=== PATIENT | male | born 1980 | race Caucasian/White ===

== ENCOUNTER 2018-09-27 19:15 | Emergency (ER) | payer SELFPAY ==
[2018-09-27 20:19] LABS: Urine Blood NEGATIVE (NEG); Urine Glucose NEGATIVE (NEG); Urine Protein NEGATIVE (NEG)
[2018-09-27 20:21] LABS: Absolute Lymphocytes (CBC) 3.2 K/uL (0.7-4.9); Absolute Monocytes 0.8 K/uL (0.1-1.3); Absolute Neutrophil 5.2 K/uL (1.8-8.0); Basophils % 0.7 % (0-1.3); Eosinophils % 2.4 % (0-4.4); Hematocrit 47.4 % (39.6-49.0); Lymphocytes % 33.6 % (15.3-44.8); MPV 8.2 fL (7.6-11.3); Monocytes % 8.8 % (3.3-12.3); RBC Red Blood Cell Count 5.47 M/uL (4.33-5.43)
[2018-09-27 20:26] LABS: Urine Bacteria NONE SEEN /HPF (NONE SEEN); Urine Culture Reflex Order NOT NEEDED; Urine Mucus 2+ /HPF (NONE SEEN); Urine RBC <5 /HPF (NONE SEEN)
--- NOTE | 2018-09-27 20:27 | RAD REPORT ---
EXAM DESCRIPTION: Shari Quintanilla (2 Views)09/27/2018 8:12 pm CLINICAL HISTORY: Chest pain COMPARISON: None FINDINGS: The lungs appear clear of acute infiltrate. The heart is normal size IMPRESSION: No acute abnormalities displayed
[2018-09-27 20:34] LABS: BUN Blood Urea Nitrogen 13 mg/dL (7-18); Bicarbonate 25 mmol/L (21-32); Glucose Level 84 mg/dL (74-106); Sodium Level 140 mmol/L (136-145)
[2018-09-27] MEDS ORDERED: KETOROLAC 30 MG/ML INJ ONE (22:12)
--- NOTE | 2018-09-27 22:24 | ER ---
Nurse's Notes [facility] Name: Milton Reeves Age: 37 yrs Sex: Male : 1980 Arrival Date: 09/27/2018 Time: 19:18 Bed 24 Private MD: Diagnosis: Low back pain Presentation: 09/27 19:25 Presenting complaint: Patient states: he has been having back pain for several weeks bb first it was on both sides but right side went away and now it is on the left side has pain with respirations pain is constant and currently 10/10. Transition of care: patient was not received from another setting of care. Onset of symptoms is unknown. Risk Assessment: Do you want to hurt yourself or someone else? Patient reports no desire to harm self or others. Initial Sepsis Screen: Does the patient meet any 2 criteria? No. Patient's initial sepsis screen is negative. Does the patient have a suspected source of infection? No. Patient's initial sepsis screen is negative. Care prior to arrival: None. 19:25 Method Of Arrival: Ambulatory bb 19:25 Acuity: HENRY 3 bb Historical: - Allergies: 19:26 No Known Allergies; bb - Home Meds: 19:26 None [Active]; bb - PMHx: 19:26 None; bb - PSHx: 19:26 None; bb - Immunization history:: Adult Immunizations up to date. - Social history:: Smoking status: Patient uses tobacco products, smokes one pack cigarettes per day. Patient/guardian denies using alcohol, street drugs. - Ebola Screening: : No symptoms or risks identified at this time. Screenin:11 Abuse screen: Denies threats or abuse. Nutritional screening: No deficits noted. la1 Tuberculosis screening: No symptoms or risk factors identified. Fall Risk None identified. Assessment: 20:10 General: Appears in no apparent distress. Behavior is calm, cooperative. Pain: la1 Complains of pain in left subscapular area. Neuro: Level of Consciousness is awake, alert, obeys commands, Oriented to person, place, time, situation. Cardiovascular: Capillary refill < 3 seconds Patient's skin is warm and dry. Respiratory: Airway is patent Respiratory effort is even, unlabored, Respiratory pattern is regular, symmetrical, Breath sounds are clear bilaterally. GI: No signs and/or symptoms were reported involving the gastrointestinal system. : No signs and/or symptoms were reported regarding the genitourinary system. 20:55 Reassessment: Patient appears in no apparent distress at this time. No changes from la1 previously documented assessment. Patient and/or family updated on plan of care and expected duration. Pain level reassessed. Patient is alert, oriented x 3, equal unlabored respirations, skin warm/dry/pink. 21:43 Reassessment: Patient appears in no apparent distress at this time. No changes from la1 previously documented assessment. Patient and/or family updated on plan of care and expected duration. Pain level reassessed. Patient is alert, oriented x 3, equal unlabored respirations, skin warm/dry/pink. 22:18 Reassessment: Patient appears in no apparent distress at this time. No changes from la1 previously documented assessment. Patient and/or family updated on plan of care and expected duration. Pain level reassessed. Patient is alert, oriented x 3, equal unlabored respirations, skin warm/dry/pink. Vital Signs: 19:26 BP 152 / 113; Pulse 81; Resp 16 S; Temp 98.1(O); Pulse Ox 97% on R/A; Weight 97.98 kg bb (R); Height 5 ft. 11 in. (180.34 cm) (R); Pain 10/10; 21:16 BP 139 / 97; la1 19:26 Body Mass Index 30.13 (97.98 kg, 180.34 cm) ED Course: 19:18 Patient arrived in ED. es 19:26 Triage completed. bb 19:26 Arm band placed on Patient placed in an exam room, on a stretcher, on pulse oximetry. bb Family accompanied patient. 19:29 Florin Glaser, RN is Primary Nurse. la1 19:29 Eddy Shaffer MD is Attending Physician. gs 20:10 XRAY Chest Pa And Lat (2 Views) In Process Unspecified. EDMS 20:11 No provider procedures requiring assistance completed. Inserted saline lock: 22 gauge la1 in right forearm, using aseptic technique. Blood collected. 20:12 Bed in low position. Call light in reach. la1 22:18 IV discontinued, intact, bleeding controlled, No redness/swelling at site. Pressure la1 dressing applied. Administered Medications: 22:03 Drug: TORadol - Ketorolac 15 mg Route: IVP; Site: right wrist; la1 22:27 Follow up: Response: No adverse reaction; Pain is decreased la1 Outcome: 22:18 Discharged to home ambulatory. la1 22:18 Condition: stable 22:18 Discharge instructions given to patient, Instructed on discharge instructions, follow up and referral plans. medication usage, Demonstrated understanding of instructions, follow-up care, medications, Prescriptions given X 1. 22:24 Discharge ordered by . 22:27 Patient left the ED. la1 Signatures: Dispatcher [employer] Janeth Perez Brenda, RN RN Florin Berkowitz RN RN la1 Eddy Shaffer MD MD
--- NOTE | 2018-09-27 22:24 | EDPHYS ---
Physician Documentation [facility] Name: Milton Reeves Age: 37 yrs Sex: Male : 1980 Arrival Date: 09/27/2018 Time: 19:18 Bed 24 Private MD: ED Physician Eddy Shaffer HPI: 09/27 22:18 This 37 yrs old Male presents to ER via Ambulatory with complaints of Flank gs Pain, Back Pain. 22:18 The patient complains of pain in the left low back and left mid back. The pain does not gs radiate. Onset: The symptoms/episode began/occurred 3 week(s) ago, and became persistent. Modifying factors: The symptoms are alleviated by nothing. the symptoms are aggravated by. Modifying factors: the symptoms are aggravated by movement. Associated signs and symptoms: Pertinent negatives: fever, urinary frequency, pain radiating to the lower extremities. Severity of pain: At its worst the pain was moderate in the emergency department the pain is unchanged. Historical: - Allergies: 19:26 No Known Allergies; bb - Home Meds: 19:26 None [Active]; bb - PMHx: 19:26 None; bb - PSHx: 19:26 None; bb - Immunization history:: Adult Immunizations up to date. - Social history:: Smoking status: Patient uses tobacco products, smokes one pack cigarettes per day. Patient/guardian denies using alcohol, street drugs. - Ebola Screening: : No symptoms or risks identified at this time. ROS: 22:18 All other systems are negative. gs Exam: 22:18 Head/Face: Normocephalic, atraumatic. Eyes: Pupils equal round and reactive to light, gs extra-ocular motions intact. Lids and lashes normal. Conjunctiva and sclera are non-icteric and not injected. Cornea within normal limits. Periorbital areas with no swelling, redness, or edema. ENT: Nares patent. No nasal discharge, no septal abnormalities noted. Tympanic membranes are normal and external auditory canals are clear. Oropharynx with no redness, swelling, or masses, exudates, or evidence of obstruction, uvula midline. Mucous membranes moist. Neck: Trachea midline, no thyromegaly or masses palpated, and no cervical lymphadenopathy. Supple, full range of motion without nuchal rigidity, or vertebral point tenderness. No Meningismus. Chest/axilla: Normal chest wall appearance and motion. Nontender with no deformity. No lesions are appreciated. Cardiovascular: Regular rate and rhythm with a normal S1 and S2. No gallops, murmurs, or rubs. Normal PMI, no JVD. No pulse deficits. Respiratory: Lungs have equal breath sounds bilaterally, clear to auscultation and percussion. No rales, rhonchi or wheezes noted. No increased work of breathing, no retractions or nasal flaring. Abdomen/GI: Soft, non-tender, with normal bowel sounds. No distension or tympany. No guarding or rebound. No evidence of tenderness throughout. Skin: Warm, dry with normal turgor. Normal color with no rashes, no lesions, and no evidence of cellulitis. MS/ Extremity: Pulses equal, no cyanosis. Neurovascular intact. Full, normal range of motion. Neuro: Awake and alert, GCS 15, oriented to person, place, time, and situation. Cranial nerves II-XII grossly intact. Motor strength 5/5 in all extremities. Sensory grossly intact. Cerebellar exam normal. Normal gait. 22:18 Constitutional: The patient appears alert, awake. 22:18 Back: CVA tenderness, that is moderate, is noted on the left. Vital Signs: 19:26 BP 152 / 113; Pulse 81; Resp 16 S; Temp 98.1(O); Pulse Ox 97% on R/A; Weight 97.98 kg bb (R); Height 5 ft. 11 in. (180.34 cm) (R); Pain 10/10; 21:16 BP 139 / 97; la1 19:26 Body Mass Index 30.13 (97.98 kg, 180.34 cm) bb MDM: 19:50 Patient medically screened. gs 22:18 Differential diagnosis: nephrolithiasis, pyelonephritis, back strain . pneumonia. Data reviewed: vital signs, nurses notes, lab test result(s), radiologic studies. Counseling: I had a detailed discussion with the patient and/or guardian regarding: the historical points, exam findings, and any diagnostic results supporting the discharge/admit diagnosis, radiology results, the need for outpatient follow up. Response to treatment: the patient's symptoms have mildly improved after treatment. 09/27 19:52 Order name: Urine Microscopic Only; Complete Time: 20:30 09/27 19:52 Order name: CBC with Diff; Complete Time: 20:30 09/27 19:52 Order name: Basic Metabolic Panel; Complete Time: 21:59 09/27 20:12 Order name: Urine Dipstick--Ancillary (enter results); Complete Time: 20:30 mw2 09/27 20:31 Order name: D-Dimer 09/27 20:31 Order name: D-Dimer; Complete Time: 21:59 EDTN 09/27 19:52 Order name: Urine Dipstick-Ancillary (obtain specimen); Complete Time: 20:10 09/27 19:52 Order name: XRAY Chest Pa And Lat (2 Views); Complete Time: 20:30 Administered Medications: 22:03 Drug: TORadol - Ketorolac 15 mg Route: IVP; Site: right wrist; la1 22:27 Follow up: Response: No adverse reaction; Pain is decreased la1 Disposition: 09/27/18 22:24 Discharged to Home. Impression: Low back pain. - Condition is Stable. - Discharge Instructions: Back Pain, Adult. - Prescriptions for Naprosyn 500 mg Oral Tablet - take 1 tablet by ORAL route 2 times per day As needed take with food; 30 tablet. - Medication Reconciliation Form, Thank You Letter, Antibiotic Education, Prescription Opioid Use form. - Follow up: Private Physician; When: 2 - 3 days; Reason: Re-evaluation by your physician. Signatures: Dis[facility] Jillian Hamilton RN RN Florin Glaser RN RN la1 Eddy Shaffer MD MD Corrections: (The following items were deleted from the chart) 22:21 21:59 Stone Protocol+CT.RAD.BRZ ordered. [facility] 22:27 22:24 09/27/2018 22:24 Discharged to Home. Impression: Low back pain. Condition is la1 Stable. Forms are Medication Reconciliation Form, Thank You Letter, Antibiotic Education, Prescription Opioid Use. Follow up: Private Physician; When: 2 - 3 days; Reason: Re-evaluation by your physician. gs
== END 2018-09-27 22:27 | disposition home or self-care (01) ==
LOC: ER 19:15
DX: M54.5 Low back pain (principal); F17.210 Nicotine dependence, cigarettes, uncomplicated
CPT/HCPCS: 36415; 71046; 80048; 81003; 81015; 85025; 85379; 96374; 99284

== ENCOUNTER 2021-08-06 10:12 | Emergency (ER) | payer OTHER, SELFPAY ==
--- OUTSIDE RECORDS SUMMARY | 2021-08-06 10:18 | XMS REPORT | Continuity of Care Document ---
:1980 Author Organization [facility] t Address [address] [place] [address] Care Team Providers Name Role Phone PCP, DOES NOT HAVE A Primary Care Physician Unavailable Jethro MARINELLI, Khalida Currie Attending Clinician Unavailable Stevan Dc NP Attending Clinician Stevan DC Attending Clinician Unavailable MARTA AMAYA Attending Clinician Unavailable Luciano Calle MD Attending Clinician Luciano CALLE Attending Clinician Unavailable Jimmie Guerrero MD Attending Clinician Jameel GARCÍA Attending Clinician Deena GARCÍA Attending Clinician Brissa Lerma Attending Clinician Doctor Unassigned, Name Attending Clinician Unavailable Chapincito Bloom MD Attending Clinician Chapincito BLOOM Attending Clinician Unavailable Chapincito BLOOM Attending Clinician Unavailable DIEGO Attending Clinician Unavailable Diego GARCÍA Attending Clinician Deena GARCÍA Admitting Clinician DIEGO Admitting Clinician Unavailable Payers Payer Name Policy Type Policy Number Effective Date Ex[facility] Date [id number] 2020 00:00:00 [employer] O [id number] 2016 00:00:00 Problems Condition Condition Condition Status Onset Resolution Last Treating Co mments Source Name Details Category Date Date Treatment Clinician Date Obesity Obesity Disease Active [facility] (BMI (BMI 9-10 [facility] - 30-39.9) 30-39.9) 00:00: Medica l 00 Center Encounter Encounter Disease Active [facility] for for 9-10 [facility] - screening screening 00:00: Medi milka for other for other 00 Cent er viral viral diseases diseases Acute Acute Disease Active [facility] hepatitis hepatitis 9-10 [facility] - 00:00: Medical 00 [place] Fatty Fatty Disease Active [facility] liver liver 9-10 [facility] - 00:00: Medical 00 [place] Abnormal Abnormal Disease [facility] liver liver 9-08 [facility] - enzymes enzymes 00:00: Medical 00 [place] Abnormal Abnormal Disease [facility] liver 02-14 [facility] - diagnostic diagnostic 00:00: Wi dical imaging imaging 00 Center Acute Acute Disease Active Univers respirator respirator 8-12 it y of y failure y failure 00:00: Luis s due to due to 00 Medical COVID-19 COVID-19 Branch No known No known Disease Unive rs active active ity of problems problems [facility] Allergies, Adverse Reactions, Alerts Allergy Allergy Status Severity Reaction(s) Onset Inactive Treating Comm ents Source Name Type Date Date Clinician NO KNOWN Allergy Active [facility] NO KNOWN Drug Active [facility] [place] [facility] ALLERGIE Class ity of S [facility] Family History Family Member Diagnosis Comments Start Date Stop Date Source Natural father Heart disease [facility] Natural mother Anxiety disorder [facility] Natural mother COPD [facility] Natural mother Depression [facility] Natural mother Hypertension [facility] Social History Social Habit Start Date Stop Date Quantity Comments Source Exposure to Yes University of SARS-CoV-2 [place] [facility] (event) Branch History SDOH [facility] - Alcohol Std Medical Cente r Drinks History SDOH [facility] - Alcohol Binge Medical Jhonny ter History SDOH [facility] - Alcohol Comment Medical C enter Alcohol intake 2021-03-13 2021-03-[address] [address] [facility] es - 00:00:00 00:00:00 non-drinker Medical Cente r (finding) Tobacco use and 2021-02-14 2021-02-[address] [facility] Viole[facility] kes - exposure 00:00:00 00:00:00 Medical Center History SDOH 2021-02-14 2021-02-14 1 SETH Tse - Alcohol Frequency 00:00:00 00:00:00 [facility] Sex Assigned At [birth year] SETH Reyes - 00:00:00 00:00:00 [facility] Smoking Status Start Date Stop Date Source Never smoker SETH Tse - [facility] Unknown if ever smoked [facility] Medications Ordered Filled Start Stop Current Ordering Indication Dosage Frequency Signature Comments Components Source Medication Medication Date Date Medication? Clinician (SIG) Name Name multivitami 2020-06 Yes Take by [facility] n/iron/foli 0-05 mouth. [facility] - c acid 12:13: Medical ([address] COMPLETE ORAL) multivitami 2020-06 Yes Take by [facility] n/iron/foli 0-05 mouth. [facility] - c acid 12:13: Medical ([address] COMPLETE ORAL) buPROPion 2020-06 Yes 150mg QD Take [address] [facility] (WELLBUTRIN 0-03 mg by [facility] - XL) 150 MG 00:00: mouth Medica l 24 hr 00 every Center tablet morning. buPROPion 2020-06 Yes 150mg QD Take [address] [facility] (WELLBUTRIN 0-03 mg by [facility] - XL) 150 MG 00:00: mouth Medica l 24 hr 00 every Center tablet morning. NaCl 0.9% Yes 2000mL at 999 Univ ers (NS) IV 8-13 mL/hr, ity of infusion 01:00: Intravenou Yasir as 2,000 mL 00 s, Medical CONTINUOUS Branch , Starting [place] 01/18/21 at 2000, Until Discontinu ed, DAE enoxaparin Yes 40mg 40 mg, Unive rs (LOVENOX) 01-18 Subcutaneo ity of injection 22:00: [place], [place] 40 mg 00 First dose Medical on [place] Branch 01/18/21 at 1700, Until Discontinu ed, Routine traMADoL 2020- No 50mg 50 mg, Univer s (ULTRAM) 01-18 08-14 Oral, ity of tablet 50 20:48: 20:47 Q4HPRN, [place] mg 58 :58 Starting Medical [place] Branch 01/18/21 at 1548, Until 01/20/21 at 1547, Routine, Pain (scale 4-6), Pain (scale 7-10) KCL 2020- No 40meq 40 mEq, Univers (KLOR-CON 01-18 Oral, ity of M20) tablet 18:30: 19:18 ONCE, 1 [place] 40 mEq 00 :00 dose, [facility] Medical 01/18/21 at Branch 1330, Routine dexamethaso 2020- No 6mg 6 mg, IV U nivers ne 01-18 Push, ity of (DECADRON 14:45: 13:46 ONCE, 1 [place] PHOSPHATE) 00 :00 dose, [facility] Medi milka injection 6 01/18/21 at Br anch mg 0945, STAT iopamidol 2020- No [id number] 120mL 120 mL, Univers (ISOVUE 01-18 Intravenou ity o f 370-500 mL) 14:30: 13:04 s, ONCE, 1 [place] injection 00 :00 dose, [place] Medic al 120 mL 01/18/21 at Branch 0930, Routine remdesivir 2020- No 200mg 200 mg, IV Univers 200 mg in 01-18 Infusion, ity of NaCl 0.9% 13:45: 15:04 ONCE, 1 [place] (NS[place] 100 mL 00 :00 dose, [place] Med ical infusion 01/18/21 at [facility] h 0845, Administer over 60 Minutes, 100 mL
Is the patient mechanical ly ventilated ? NO
Is the patient requiring supplement al oxygen? YES KCL 2020- No 40meq 40 mEq, Univers (KLOR-CON 01-18 Oral, ity of M20) tablet 13:30: 13:46 ONCE, 1 [place] 40 mEq 00 :00 dose, [facility] Medical 01/18/21 at Branch 0830, Routine ketorolac 2020- No 30mg 30 mg, Unive rs (TORADOL) 01-18 Slow IV ity of injection 12:30: 11:43 Push, [place] 30 mg 00 :00 ONCE, 1 Medical dose, [place] Branch 01/18/21 at 0730, Routine
member of parliament approving Restricted medication : JOHN GUERRERO ondansetron No 4mg 4 mg, Slow Univers (ZOFRAN 01-18 IV Push, ity of (PF)) 12:30: 11:43 ONCE, 1 [place] injection 4 00 :00 dose, [place] Med ical mg 01/18/21 at Branch 0730, DAE NaCl 0.9% 2020- No 500mL at 999 Univ ers (NS) IV 01-18 mL/hr, ity of infusion 12:30: 20:49 Intravenou [place] 500 mL 00 :19 s, Medical CONTINUOUS Branch , Starting [place] 01/18/21 at 0730, Until [place] 01/18/21 at 1549, Routine acetaminoph No 1000mg 1,000 mg, Univers en 01-13 Oral, ity of (TYLENOL) 09:15: 08:21 ONCE, 1 [place] tablet 00 :00 dose, Sat Medical 1,000 mg 01/13/21 at Branch 0415, DAE benzonatate No 100mg 100 mg, U nivers (TESSALON 01-13- Oral, ity of PERLES) 09:00: 08:21 ONCE, 1 [place] capsule 100 00 :00 dose, Sat Med ical mg 01/13/21 at Branch 0400, Routine ibuprofen Yes [id number] 600mg Take 1 Univers 600 mg 8-07 tablet by ity of tablet 00:00: mouth [place] 00 every 6 Medical (six) Branch hours as needed for Pain (scale 4-6). benzonatate Yes [id number] 100mg Take 1 Univers 100 mg 8-07 capsule by ity of capsule 00:00: mouth 3 [place] 00 (three) Medical times Branch daily as needed for Cough. ondansetron 0 Yes [id number] 4mg Take 1 Univers (ZOFRAN 8-07 tablet by ity of ODT) 4 mg 00:00: mouth [place] disintegrat 00 every 8 Medic al ing tablet (eight) Branch hours as needed for Nausea and Vomiting (N/V). albuterol Yes [id number] 2{puff} Inhale 2 Univers 90 8-07 Puffs ity of mcg/actuati 00:00: every 4 [place] as on inhaler 00 (four) Medical hours as Branch needed for Wheezing or Shortness of Breath. ibuprofen Yes [id number] 600mg Take 1 Univers 600 mg 8-07 tablet by ity of tablet 00:00: mouth [place] 00 every 6 Medical (six) Branch hours as needed for Pain (scale 4-6). benzonatate Yes [id number] 100mg Take 1 Univers 100 mg 8-07 capsule by ity of capsule 00:00: mouth 3 [place] 00 (three) Medical times Branch daily as needed for Cough. ondansetron Yes [id number] 4mg Take 1 Univers (ZOFRAN 8-07 tablet by ity of ODT) 4 mg 00:00: mouth [place] disintegrat 00 every 8 Medic al ing tablet (eight) Branch hours as needed for Nausea and Vomiting (N/V). albuterol Yes [id number] 2{puff} Inhale 2 Univers 90 8-07 Puffs ity of mcg/actuati 00:00: every 4 [place] on inhaler 00 (four) Medical hours as Branch needed for Wheezing or Shortness of Breath. ketorolac 2019- No 30mg 30 mg, Unive rs (TORADOL) 02-26 Slow IV ity of injection 13:00: 12:14 Push, [place] 30 mg 00 :00 ONCE, 1 Medical dose, [place] 02/27/20 at 0800, Routine
member of parliament approving Restricted medication : JOHN GUERRERO ondansetron 2019- No 4mg 4 mg, Slow Univers (ZOFRAN 02-26 IV Push, ity of (PF)) 12:00: 10:59 ONCE, 1 [place] injection 4 00 :00 dose, [place] Med ical mg 02/27/20 at Branch 0700, DAE FENTanyl PF 2019- No 75ug 75 mcg, Un malcolm (SUBLIMAZE 02-26 Slow IV ity o f (PF)) 12:00: 10:59 Push, [place] injection 00 :00 ONCE, 1 Medical 75 mcg dose, [place] Branch 02/27/20 at 0700, Routine iohexol 2020-0 2020- No 120mL 120 mL, Unive rs (OMNIPAQUE 02-26 Intravenou it y of 350 11:45: 11:28 s, ONCE, 1 [place] BULK-100 00 :00 dose, [place] Medica l mL) 02/27/20 at Branch injection 0645, 120 mL Routine lisinopriL 2020-0 Yes [id number] 10mg Take 1 U nivers 10 mg 9-20 tablet by ity of tablet 00:00: mouth at [place] 00 bedtime. Medical Branch traMADoL 2020-0 Yes [id number] 50mg Take 1 Univers (ULTRAM) 50 9-20 tablet by ity of mg tablet 00:00: mouth [place] 00 every 6 Medical (six) Branch hours as needed for Pain (scale 7-10). Indication s: acute pain ondansetron 2020-0 Yes [id number] 4mg Take 1 Univers (ZOFRAN) 4 9-20 tablet by ity of mg tablet 00:00: mouth [place] 00 every 8 Medical (eight) Branch hours as needed for Nausea and Vomiting (N/V). dicyclomine 2020-0 Yes [id number] 20mg Take 1 Univers 20 mg 9-20 tablet by ity of tablet 00:00: mouth [place] 00 every 6 Medical (six) Branch hours as needed for Abdominal pain. lisinopriL 2020-0 Yes [id number] 10mg Take 1 U nivers 10 mg 9-20 tablet by ity of tablet 00:00: mouth at [place] 00 bedtime. Medical Branch traMADoL 2020-0 Yes [id number] 50mg Take 1 Univers (ULTRAM) 50 9-20 tablet by ity of mg tablet 00:00: mouth [place] 00 every 6 Medical (six) Branch hours as needed for Pain (scale 7-10). Indication s: acute pain ondansetron 2020-0 Yes [id number] 4mg Take 1 Univers (ZOFRAN) 4 9-20 tablet by ity of mg tablet 00:00: mouth [place] 00 every 8 Medical (eight) Branch hours as needed for Nausea and Vomiting (N/V). dicyclomine 2020-0 Yes [id number] 20mg Take 1 Univers 20 mg 9-20 tablet by ity of tablet 00:00: mouth [place] 00 every 6 Medical (six) Branch hours as needed for Abdominal pain. lisinopriL 2020-0 Yes [id number] 10mg Take 1 U nivers 10 mg 9-20 tablet by ity of tablet 00:00: mouth at [place] 00 bedtime. Medical Branch traMADoL 2020-0 Yes [id number] 50mg Take 1 Univers (ULTRAM) 50 9-20 tablet by ity of mg tablet 00:00: mouth [place] 00 every 6 Medical (six) Branch hours as needed for Pain (scale 7-10). Indication s: acute pain ondansetron 2020-0 Yes [id number] 4mg Take 1 Univers (ZOFRAN) 4 9-20 tablet by ity of mg tablet 00:00: mouth [place] 00 every 8 Medical (eight) Branch hours as needed for Nausea and Vomiting (N/V). dicyclomine 2020-0 Yes [id number] 20mg Take 1 Univers 20 mg 9-20 tablet by ity of tablet 00:00: mouth [place] 00 every 6 Medical (six) Branch hours as needed for Abdominal pain. lisinopriL 2020-0 Yes [id number] 10mg Take 1 U nivers 10 mg 9-20 tablet by ity of tablet 00:00: mouth at [place] 00 bedtime. Medical Branch traMADoL 2020-0 Yes [id number] 50mg Take 1 Univers (ULTRAM) 50 9-20 tablet by ity of mg tablet 00:00: mouth [place] 00 every 6 Medical (six) Branch hours as needed for Pain (scale 7-10). Indication s: acute pain ondansetron 2020-0 Yes [id number] 4mg Take 1 Univers (ZOFRAN) 4 9-20 tablet by ity of mg tablet 00:00: mouth [place] 00 every 8 Medical (eight) Branch hours as needed for Nausea and Vomiting (N/V). dicyclomine 2020-0 Yes [id number] 20mg Take 1 Univers 20 mg 9-20 tablet by ity of tablet 00:00: mouth [place] 00 every 6 Medical (six) Branch hours as needed for Abdominal pain. lisinopriL 2020-0 Yes [id number] 10mg Take 1 U nivers 10 mg 9-20 tablet by ity of tablet 00:00: mouth at [place] 00 bedtime. Medical Branch traMADoL 2020-0 Yes [id number] 50mg Take 1 Univers (ULTRAM) 50 9-20 tablet by ity of mg tablet 00:00: mouth [place] 00 every 6 Medical (six) Branch hours as needed for Pain (scale 7-10). Indication s: acute pain ondansetron 2020-0 Yes [id number] 4mg Take 1 Univers (ZOFRAN) 4 9-20 tablet by ity of mg tablet 00:00: mouth [place] 00 every 8 Medical (eight) Branch hours as needed for Nausea and Vomiting (N/V). dicyclomine 2020-0 Yes [id number] 20mg Take 1 Univers 20 mg 9-20 tablet by ity of tablet 00:00: mouth [place] 00 every 6 Medical (six) Branch hours as needed for Abdominal pain. lisinopriL 2020-0 Yes [id number] 10mg Take 1 U nivers 10 mg 9-20 tablet by ity of tablet 00:00: mouth at [place] 00 bedtime. Medical Branch traMADoL 2020-0 Yes [id number] 50mg Take 1 Univers (ULTRAM) 50 9-20 tablet by ity of mg tablet 00:00: mouth [place] 00 every 6 Medical (six) Branch hours as needed for Pain (scale 7-10). Indication s: acute pain ondansetron 2020-0 Yes [id number] 4mg Take 1 Univers (ZOFRAN) 4 9-20 tablet by ity of mg tablet 00:00: mouth [place] 00 every 8 Medical (eight) Branch hours as needed for Nausea and Vomiting (N/V). dicyclomine 2020-0 Yes [id number] 20mg Take 1 Univers 20 mg 9-20 tablet by ity of tablet 00:00: mouth [place] 00 every 6 Medical (six) Branch hours as needed for Abdominal pain. lisinopriL 2020-0 Yes [id number] 10mg Take 1 U nivers 10 mg 9-20 tablet by ity of tablet 00:00: mouth at [place] 00 bedtime. Medical Branch traMADoL 2020-0 Yes [id number] 50mg Take 1 Univers (ULTRAM) 50 9-20 tablet by ity of mg tablet 00:00: mouth [place] 00 every 6 Medical (six) Branch hours as needed for Pain (scale 7-10). Indication s: acute pain ondansetron 2020-0 Yes [id number] 4mg Take 1 Univers (ZOFRAN) 4 9-20 tablet by ity of mg tablet 00:00: mouth [place] 00 every 8 Medical (eight) Branch hours as needed for Nausea and Vomiting (N/V). dicyclomine 2020-0 Yes [id number] 20mg Take 1 Univers 20 mg 9-20 tablet by ity of tablet 00:00: mouth [place] 00 every 6 Medical (six) Branch hours as needed for Abdominal pain. lisinopriL 2019-0 Yes [id number] 10mg Take 1 U nivers 10 mg 9-20 tablet by ity of tablet 00:00: mouth at [place] 00 bedtime. Medical Branch traMADoL 2019-0 Yes [id number] 50mg Take 1 Univers (ULTRAM) 50 9-20 tablet by ity of mg tablet 00:00: mouth [place] 00 every 6 Medical (six) Branch hours as needed for Pain (scale 7-10). Indication s: acute pain ondansetron 2019-0 Yes [id number] 4mg Take 1 Univers (ZOFRAN) 4 9-20 tablet by ity of mg tablet 00:00: mouth [place] 00 every 8 Medical (eight) Branch hours as needed for Nausea and Vomiting (N/V). dicyclomine 2019-0 Yes [id number] 20mg Take 1 Univers 20 mg 9-20 tablet by ity of tablet 00:00: mouth [place] 00 every 6 Medical (six) Branch hours as needed for Abdominal pain. ketorolac 2020- No 30mg 30 mg, Unive rs (TORADOL) 10-04 0429 Slow IV ity of injection 05:00: 04:59 Push, Q6H, [place] 30 mg 00 :00 4 doses, Medical First dose Branch on Fri10/05/19 at 0000, Last dose on Fri10/05/19 at 1800, Routine
member of parliament approving Restricted medication : SUZIE CORTEZ NaCl 0.9% 2020- No 1000mL at 999 Uni vers (NS) bolus 10-04-28 mL/hr, ity of infusion 04:45: 04:30 1,000 mL, Yasir as 1,000 mL 00 :00 IV Medical Infusion, Branch ONCE, 1 dose, 10/04/19 at 2345, STAT ibuprofen 2019-0 Yes [id number] 800mg Take 1 U nivers 800 mg 4-27 tablet by ity of tablet 00:00: mouth [place] 00 every 8 Medical (eight) Branch hours. methocarbam 2019-0 Yes [id number] 500mg Take 1 Univers ol 500 mg 4-27 tablet by ity o f tablet 00:00: mouth (four) Medical times Branch daily. ibuprofen 2020-0 Yes [id number] 800mg Take 1 U nivers 800 mg 4-27 tablet by ity of tablet 00:00: mouth [place] 00 every 8 Medical (eight) Branch hours. methocarbam 2020-0 Yes [id number] 500mg Take 1 Univers ol 500 mg 4-27 tablet by ity o f tablet 00:00: mouth (four) Medical times Branch daily. ibuprofen 2020-0 Yes [id number] 800mg Take 1 U nivers 800 mg 4-27 tablet by ity of tablet 00:00: mouth 00 every 8 Medical (eight) Branch hours. methocarbam 2020-0 Yes [id number] 500mg Take 1 Univers ol 500 mg 4-27 tablet by ity o f tablet 00:00: mouth (four) Medical times Branch daily. ibuprofen 2020-0 Yes [id number] 800mg Take 1 U nivers 800 mg 4-27 tablet by ity of tablet 00:00: mouth 00 every 8 Medical (eight) Branch hours. methocarbam 2020-0 Yes [id number] 500mg Take 1 Univers ol 500 mg 4-27 tablet by ity o f tablet 00:00: mouth (four) Medical times Branch daily. ibuprofen 2020-0 Yes [id number] 800mg Take 1 U nivers 800 mg 4-27 tablet by ity of tablet 00:00: mouth 00 every 8 Medical (eight) Branch hours. methocarbam 2020-0 Yes [id number] 500mg Take 1 Univers ol 500 mg 4-27 tablet by ity o f tablet 00:00: mouth (four) Medical times Branch daily. ibuprofen 2020-0 Yes [id number] 800mg Take 1 U nivers 800 mg 4-27 tablet by ity of tablet 00:00: mouth 00 every 8 Medical (eight) Branch hours. methocarbam 2020-0 Yes [id number] 500mg Take 1 Univers ol 500 mg 4-27 tablet by ity o f tablet 00:00: mouth (four) Medical times Branch daily. methocarbam 2020-0 Yes [id number] 500mg Take 1 Univers ol 500 mg 4-27 tablet by ity o f tablet 00:00: mouth (four) Medical times Branch daily. methocarbam 2020-0 Yes [id number] 500mg Take 1 Univers ol 500 mg 4-27 tablet by ity o f tablet 00:00: mouth 4 00 (four) Medical times Branch daily. ibuprofen 2020-0 Yes [id number] 800mg Take 1 U nivers 800 mg 4-27 tablet by ity of tablet 00:00: mouth 00 every 8 Medical (eight) Branch hours. methocarbam 2020-0 Yes [id number] 500mg Take 1 Univers ol 500 mg 4-27 tablet by ity o f tablet 00:00: mouth 4 00 (four) Medical times Branch daily. ibuprofen 2020-0 2020- No [id number] 800mg Take 1 Univers 800 mg 4-27 08-07 tablet by ity of tablet 00:00: 00:00 mouth [place] 00 :00 every 8 Medical (eight) Branch hours. Vital Signs Vital Name Observation Time Observation Value Comments Source HEIGHT 2021-02-14 12:52:00 180.3 cm WEIGHT 2021-02-14 12:52:00 109.77 kg HEIGHT 2021-02-14 12:52:00 180.3 cm WEIGHT 2021-02-14 12:52:00 109.77 kg Systolic blood 2021-01-19 02:00:00 139 mm[Hg] Univer sity [facility] Diastolic blood 2021-01-19 02:00:00 83 mm[Hg] Unive [facility] Heart rate 2021-01-19 02:00:00 85 /min [facility] Oxygen saturation in 2021-01-19 02:00:00 99 /min [facility] Arterial blood by [facility] Pulse oximetry Branch Respiratory rate 2021-01-19 01:00:00 20 /min [facility] Body temperature 2021-01-18 11:04:00 37.78 Jing [facility] Body height 2021-01-18 11:04:00 180.3 cm [facility] Body weight 2021-01-18 11:04:00 113.399 kg [facility] BMI 2021-01-18 11:04:00 34.87 kg/m2 [facility] Systolic blood 2021-01-13 08:00:00 161 mm[Hg] Univer sity of pressure [place] [facility] Diastolic blood 2021-01-13 08:00:00 98 mm[Hg] Unive rsity of pressure [place] [facility] Heart rate 2021-01-13 08:00:00 80 /min [facility]i ty [facility] [place] [facility] Respiratory rate 2021-01-13 08:00:00 20 /min Univ ersity of [place] [facility] Oxygen saturation in 2021-01-13 08:00:00 99 /min University of Arterial blood by [facility] Pulse oximetry Branch Body temperature 2021-01-13 03:37:00 37.44 Jing Univ ersity of [place] [facility] Body height 2021-01-13 03:37:00 180.3 cm [facility] [place] [facility] Body weight 2021-01-13 03:37:00 113.399 kg [facility] [place] [facility] BMI 2021-01-13 03:37:00 34.87 kg/m2 [facility] [place] [facility] Systolic blood 2021-01-12 03:13:00 167 mm[Hg] Univer sity of pressure [place] [facility] Diastolic blood 2021-01-12 03:13:00 115 mm[Hg] Unive rsity of pressure [place] [facility] Heart rate 2021-01-12 03:13:00 101 /min [facility] [place] [facility] Body temperature 2021-01-12 03:13:00 37.94 Jing Univ ersity of [place] [facility] Respiratory rate 2021-01-12 03:13:00 20 /min Univ ers[facility] [place] [facility] Body height 2021-01-12 03:13:00 180.3 cm [facility] [place] [facility] Body weight 2021-01-12 03:13:00 113.399 kg [facility] [place] [facility] BMI 2021-01-12 03:13:00 34.87 kg/m2 [facility] [place] [facility] Oxygen saturation in 2021-01-12 03:13:00 97 /min University of Arterial blood by [facility] Pulse oximetry Branch Systolic blood 2020-11-22 15:44:00 152 mm[Hg] Univer sity of pressure [place] [facility] Diastolic blood 2020-11-22 15:44:00 94 mm[Hg] Unive rsity of pressure [place] [facility] Heart rate 2020-11-22 15:44:00 78 /min [facility] [place] [facility] Body temperature 2020-11-22 15:44:00 36.5 Jing Univ ers[facility] of [place] [facility] Respiratory rate 2020-11-22 15:44:00 18 /min Univ ers[facility] [place] [facility] Body height 2020-11-22 15:44:00 180.3 cm [facility] [place] [facility] Body weight 2020-11-22 15:44:00 117.935 kg [facility] [place] [facility] BMI 2020-11-22 15:44:00 36.26 kg/m2 [facility] [place] [facility] Oxygen saturation in 2020-11-22 15:44:00 98 /min University of Arterial blood by [employer] [facility] Pulse oximetry Branch Systolic blood 2020-02-27 11:00:00 160 mm[Hg] Univer sity of pressure [place] [facility] Diastolic blood 2020-02-27 11:00:00 106 mm[Hg] Unive rsity of pressure [place] [facility] Heart rate 2020-02-27 11:00:00 75 /min [facility] [place] [facility] Respiratory rate 2020-02-27 11:00:00 20 /min Univ ersity [facility] [place] [facility] Oxygen saturation in 2020-02-27 11:00:00 96 /min University of Arterial blood by [employer] Pulse oximetry Branch Body temperature 2020-02-27 10:32:00 36.22 Jing Univ ers[facility] [place] [facility] Body height 2020-02-27 10:32:00 182.9 cm [facility] [place] [facility] Body weight 2020-02-27 10:32:00 124.739 kg [facility] [place] [facility] BMI 2020-02-27 10:32:00 37.30 kg/m2 [facility] [place] [facility] Systolic blood 2019-10-05 04:00:00 163 mm[Hg] Univer sity of pressure [place] [facility] Diastolic blood 2019-10-05 04:00:00 99 mm[Hg] Unive rsity of pressure [place] [facility] Heart rate 2019-10-05 04:00:00 97 /min [facility] [place] [facility] Oxygen saturation in 2019-10-05 04:00:00 96 /min University of Arterial blood by [employer] Pulse oximetry Branch Body temperature 2019-10-05 03:24:00 36.89 Jing [facility] Respiratory rate 2019-10-05 03:24:00 17 /min [facility] Body height 2019-10-05 03:24:00 180.3 cm [facility] Body weight 2019-10-05 03:24:00 113.399 kg [facility] BMI 2019-10-05 03:24:00 34.87 kg/m2 [facility] Body height 2021-03-13 11:17:00 180.3 cm [facility] Body weight 2021-03-13 11:17:00 108.863 kg [facility] BMI 2021-03-13 11:17:00 33.47 kg/m2 [facility] Systolic blood 2021-02-14 12:52:00 139 mm[Hg] [facility] Diastolic blood 2021-02-14 12:52:00 93 mm[Hg] [facility] Heart rate 2021-02-14 12:52:00 83 /min [facility] Body temperature 2021-02-14 12:52:00 36.67 Jing [facility] Oxygen saturation in 2021-02-14 12:52:00 97 /min [facility] Arterial blood by Medical Ce nter Pulse oximetry Procedures Procedure Date / Time Performing Clinician Source Performed CMV PCR, QUANTITATIVE 2021-02-14 14:55:00 Desmond Calle [facility] BASIC METABOLIC PANEL 2021-02-14 14:55:00 Desmond Calle [facility] () [facility] HEPATIC FUNCTION PANEL 2021-02-14 14:55:00 Desmond Calle [facility] CBC W/PLT COUNT & AUTO 2021-02-14 14:55:00 Desmond Calle [facility] PROTHROMBIN TIME/INR 2021-02-14 14:55:00 Desmond Calle [facility] HEPATITIS B CORE 2021-02-14 14:55:[address] [facility], [facility] HEPATITIS B SURFACE 2021-02-14 14:55:[address] [facility] S t [facility] - ANTIBODY [facility] HEPATITIS A ANTIBODY, 2021-02-14 14:55:00 Desmond Calle [facility] IGG [facility] FERRITIN 2021-02-14 14:55:00 Desmond Calle [facility] EDOUK-3-[id number]\\, 2021-02-14 14:55:00 Desmond Calle [facility] SERUM [facility] CBC W/PLT COUNT & AUTO 2021-02-14 14:55:00 Desmond Calle. CH I [facility] HEPATITIS B SURFACE 2021-01-18 17:54:00 Tariq Jorgensen [facility] ANTIGEN [facility] Branch HCV ANTIBODY 2021-01-18 17:54:00 Jameel [facility] HEPATITIS A VIRUS 2021-01-18 17:54:00 Jameel [facility] [address] ANTIBODY IGM [facility] HEPATITIS B CORE 2021-01-18 17:54:00 Jameel [facility] [address] ANTIBODY IGM [facility] PHOSPHORUS 2021-01-18 17:53:00 Jameel [facility] LACTATE DEHYDROGENASE 2021-01-18 17:53:[address] [facility] sity [facility] CREATINE KINASE 2021-01-18 17:53:00 Jameel [facility] MAGNESIUM 2021-01-18 17:53:00 Jameel [facility] FERRITIN SERUM 2021-01-18 17:53:00 Jameel [facility] CT ABDOMEN PELVIS W 2021-01-18 13:18:30 Suzie Cortez [facility] CONTRAST [facility] CT CHEST PULMONARY 2021-01-18 13:18:30 John Guerrero [facility] ANGIOGRAM Medical Branch COMP. METABOLIC PANEL 2021-01-18 11:42:00 John Guerrero [facility] ([id number]) Medical Branch CBC WITH DIFF 2021-01-18 11:42:00 John Guerrero [facility] D-DIMER 2021-01-18 11:42:00 John Guerrero [facility] CONSENT/REFUSAL FOR 2021-01-18 10:43:14 Doctor Unassigned, No [facility] [place] [facility] Name Medical Branch NOTICE OF PRIVACY 2021-01-13 03:12:35 [facility] CONSENT/REFUSAL FOR 2021-01-13 03:12:13 Doctor Unassigned, No [facility] [place] [facility] Name Medical Branch NOTICE OF PRIVACY 2021-01-12 03:00:22 [facility] CONSENT/REFUSAL FOR 2021-01-12 03:00:00 Doctor Unassigned, No [facility] [place] [facility] TREATMENT [facility] Medical [place] ASSIGNMENT OF BENEFITS 2020-11-22 15:58:53 Doctor Unassigned, No [facility] Branch CT ABDOMEN PELVIS W 2020-02-27 11:32:43 John Guerrero [facility] CONTRAST Medical Branch URINALYSIS 2020-02-27 11:01:00 John Guerrero [facility] LIPASE 2020-02-27 10:39:00 John Guerrero [facility] COMP. METABOLIC PANEL 2020-02-27 10:39:00 John Guerrero [facility] ([id number]) Medical [place] CBC WITH DIFF 2020-02-27 10:39:00 John Guerrero [facility] NOTICE OF PRIVACY 2020-02-27 10:23:10 Doctor Unassigned, No Univ [facility]ity [facility] Medical Branch CONSENT/REFUSAL FOR 2020-02-27 10:20:58 Doctor Unassigned, No [facility] [place] [facility] TREATMENT [facility] Medical Branch XR CHEST 1 VW 2019-10-05 04:10:53 Suzie Cortez [facility] XR KUB 2019-10-05 03:46:03 Suzie Cortez [facility] CREATINE KINASE 2019-10-05 03:36:00 Suzie Cortez [facility] LIPASE 2019-10-05 03:36:00 Suzie Cortez [facility] HEPATIC FUNCTION PANEL 2019-10-05 03:36:00 Suzie Cortez [facility] ([id number]) (ALB,T.PRO,BILI [facility] T,BU/BC,ALT,AST,ALK PHOS) BASIC METABOLIC PANEL 2019-10-05 03:36:00 Suzie Cortez [facility] (NA, K, CL, CO2, Medical Branch GLUCOSE, BUN, CREATININE, CA) CBC WITH DIFFERENTIAL 2019-10-05 03:36:00 Suzie Cortez [facility] PROTHROMBIN TIME / INR 2019-10-05 03:36:00 Suzie Cortez [facility] ACTIVATED PARTIAL 2019-10-05 03:36:00 Diego [facility] THRMPLAS [facility] URINALYSIS 2019-10-05 03:36:00 Diego Suzie [facility] Plan of Care Planned Activity Planned Date Details Comments Source Future Scheduled 2021-06-[address] [facility] - Test 00:00:00 (12+) [code = [facility] DEPRESSION SCREENING (12+)] Future Scheduled 2021-06-[address] [facility] - Test 00:00:00 (12+) [code = [facility] DEPRESSION SCREENING (12+)] Future Scheduled 2021-02-[address] [facility] - Test 00:00:00 (#1) [code = [facility] INFLUENZA VACCINE (#1)] Future Scheduled 2021-02-[address] [facility] - Test 00:00:00 (#1) [code = [facility] INFLUENZA VACCINE (#1)] Future Scheduled [address] [facility] Test 00:00:00 (procedure) [code = [facility] [id number]] Future Scheduled [address] [facility] Test 00:00:00 (procedure) [code = [facility] [id number]] Future Scheduled 2001 DTAP/TDAP/TD VACCINES [facility] Test 00:[facility]:00 (1 - Tdap) [code = Medical C enter DTAP/TDAP/TD VACCINES (1 - Tdap)] Future Scheduled 2001 DTAP/TDAP/TD VACCINES [facility] Test 00:00:00 (1 - Tdap) [code = Medical C enter DTAP/TDAP/TD VACCINES (1 - Tdap)] Future Scheduled 2000 HEPATITIS C [facility]CRE[facility]ING [facility] 00:[facility]00 [code = HEPATITIS C Medical Center SCREENING] Future Scheduled 2000 HEPATITIS C [facility] 00:00[facility]00 [code = HEPATITIS C Medical Center SCREENING] Future Scheduled 1987-10-01 COVID-19 VACCINE (1) [facility] - Test 00:00:00 [code = COVID-[address] VACCINE (1)] Future Scheduled 1987-10-01 COVID-19 VACCINE (1) [facility] - Test 00:00:00 [code = COVID-[address] VACCINE (1)] Encounters Start End Encounter Admission Attending Care Care Encounter Source Date/Time Date/Time Type Type Clinicians Facility Department ID 2021-04-09 Emergency [facility] [id number] Univers 14:58:14 ity [facility] 2021-04-09 Emergency [facility] [id number] [facility] Emergency [facility] [id number] [facility] 13:34:[facility] 2021-04-06 Emergency [facility] [id number] [facility] 18:28[facility]05 [facility] 2021-03-23 2021-03-23 Telephone Jethro [facility] [id number] 00[facility] 00:00:00 Lizbeth Currie [facility] 2021-03-13 2021-03-13 Video - Nael [facility] [id number] 11:15:58 15:05:38 Telemedici Leeanne Gonzalez [facility] 2021-03-13 2021-03-[address] [facility] [id number] SLE 11:15:58 15:05:38 LEEANNE 2021-02-22 2021-02-[address] [facility] [id number] SLE 00:00:00 00:00:00 PRASUN 2021-02-15 2021-02-15 Documentat Jethro, [facility] [id number] 00:[facility] 00:00:00 corry Lopez jimmie Berger Khalida [facility] 2021-02-14 2021-02-14 Office RUTH Calle [facility] [id number] 10:33:30 11:33:30 Visit Desmond SerjioTammy [facility] 2021-02-14 2021-02-[address] [facility] [id number] [facility] 00:00:00 00:00:00 [facility] 2021-01-18 2021-01-18 [facility] Cesar Adeelyuli Gallo [facility] [id number]. [id number] Univers 06:07:00 21:56:00 Encounter Tariq Jorgensen [id number] ity of Junaid Shaffer 4.2.7.2.6 [facility] [id number] [facility] 084 Branch 2021-01-12 2021-01-13 Emergency Mark Foster [place] [id number] Univers 22:40:00 03:32:00 Brissa Vines [id number] i ty of [place] 4.2.7.[address] [place] [address] [id number] [facility] 084 Branch 2021-01-11 2021-01-12 Emergency [facility] [id number] Univers 22:14:00 00:50:00 Mohinder [id number] i ty of [place] 4.2.7.2.[address] [place] [address] [id number] [facility] 084 Branch 2021-01-11 2021-01-11 Orders Doctor ALKA [id number] Univers 00:00:00 00:00:00 Only Unassigned, GIBRAN [id number] ity of Friona [facility] 4.2.7.2.686 [facility] [id number] [facility] 009 Branch 2020-11-22 2020-11-22 Office Cathie [facility] [id number] Univers 10:36:13 11:06:13 Visit Raymundo Vines [id number] ity [place] [facility] [id number] Wi dical formerly [facility] 085 [facility] 2020-11-22 2020-11-22 Outpatient R KEYSHADESHAUN ABREUXIOMARA [facility] [id number] Univers 10:30:00 10:30:00 RAYMUNDO BLOOM 6 16 ity of [facility] 2020-11-22 2020-11-22 Outpatient R DESHAUN BLOOMMIDelaney [facility] [id number] Univers 10:30:00 10:30:00 [facility]UNDO [facility] 2020-11-22 2020-11-22 Orders Doctor ALKA [id number] Univers 00:00:00 00:00:00 Only Unassigned, GIBRAN [id number] ity of [facility] 4.2.7.2.686 Yasir [id number] [place] [address] Branch 2020-02-27 2020-02-27 Emergency [facility] [id number] Univers 05:27:00 07:27:00 John V[place] [id number] [place] [id number] [address] 2019-10-04 2019-10-04 Emergency X [facility] ERT [id number] Univers 22:25:41 23:37:00 SUZIE ity [facility] 2019-10-04 2019-10-04 Emergency [facility] [id number] Univers 22:25:41 23:37:00 Suzie Mohinder [id number] i [place] [id number] [address] Results Test Description Test Time Test Comments Results Result Comments Source HEPATITIS B CORE ANTIBODY, TOTAL 2021-02-15 15:44:00 Test Item Value Reference Range Interpretation Comme nts HEPATITIS B CORE TOTAL ANTIBODY (BEAKER) (test code = Nonreactive Nonreactive 497) Machinist Mechanic ID - FERNANDO FCMV PCR, [id number] 13:55:00 Test Item Value Reference Range Interpretation Comments CMV VIRAL LOAD - Negative or below See_Comment [Auto mated message] NEGATIVE (GAVIN) the linear range The sy stem which (test code = of the assay generated this 2558) (<300 IU/mL) result transmit ngoc reference range : <300 - >3,00 0,000 IU/mL. The refe rence range was not u sed to interpret th is result as normal/abnormal . Cytomegalovirus (CMV) infection can cause significant disease in immunosuppressed patients. However,it is common for CMV to manifest as a limited infection which is of no clinical significance in immunosuppressed patients or in healthy individuals.Viral load measurements are helpful to identify clinical CMV infection and to guide the pre-emptive management of antiviral therapy. For treatment of CMVinfection due to reactivation in transplant recipients, a threshold between 4,000 and 5,000 copies/mL is suggested. For treatment of primary CMV infection, a lower threshold can be used.CMV infection may also be monitored using weekly serial measurements. Serial measurements of CMV DNA viral load canbe evaluated by identifying a 10-fold change, as well as assessing the CMV DNA viral load and the clinical context for each patient.The plasma CMV DNA viral load was detected using quantitative polymerase chain reaction and fluorescent monitoring of a specific hybridized probe. Genetic variation and ot her factors can affect the accuracy of nucleic acid testing. Therefore, the results should be interpreted in light of clinical data. A negative result may not exclude the presence of CMV disease.This test was developed and its performance characteristics determined by the [facility] Path ology Department, Section of Molecular Pathology. It has not been cleared or approved by the U.S. Food and Drug Administration (FDA), since FDA approval is not required for clinical use of the test. Validation was done as required by The Clinical Laboratory Improvement Amendments of 1988.HEPATITIS B SURFACE [id number] 17:28:00 Test Item Value Reference Range Interpretation Comments HEPATITIS B SURFACE ANTIBODY < mIU/mL <8.0 (GAVIN) (test code = 647) Machinist Mechanic ID - CDPHEPATITIS A ANTIBODY, [id number] 17:26:00 Test Item Value Reference Range Interpretation Comments HEPATITIS A IGG ANTIBODY (BEAKER) Nonreactive Nonreactive (test code = 2797) Machinist Mechanic ID - [id number] 16:28:00 Test Item Value Reference Range Interpretation Comments ALPHA-1 ANTITRYPSIN (BEAKER) 141.30 mg/dL 90.00-200.00 (test code = 502) Machinist Mechanic ID - [id number] 16:07:00 Test Item Value Reference Range Interpretation Comments FERRITIN (BEAKER) (test code = 238.52 ng/mL 5.00-275.00 361) Machinist Mechanic ID - PIAYA LBASIC METABOLIC [id number] 15:46:00 Test Item Value Reference Range Interpretation Comments SODIUM (BEAKER) 139 meq/L 136-145 (test code = 381) POTASSIUM (BEAKER) 4.0 meq/L 3.5-5.1 Specimen slightly (test code = 379) hemolyzed CHLORIDE (BEAKER) 108 meq/L 98-107 H (test code = 382) CO2 (BEAKER) (test 24 meq/L 22-29 code = 355) BLOOD UREA NITROGEN 7 mg/dL 7-21 (BEAKER) (test code = 354) CREATININE (BEAKER) 1.11 mg/dL 0.57-1.25 Specimen slightly (test code = 358) hemolyzed GLUCOSE RANDOM 84 mg/dL 70-105 (BEAKER) (test code = 652) CALCIUM (BEAKER) 8.8 mg/dL 8.4-10.2 (test code = 697) EGFR (BEAKER) (test 74 mL/min/1.73 ESTIMA NGOC GFR IS code = 1092) sq m NOT ACCURATE CREATININE CLEARANCE IN PREDICTING GLOMERULAR FILTRATION RATE . ESTIMATED GFR I S NOT APPLICABLE FOR DIALYSIS PATIEN TS. Machinist Mechanic ID - PIAYA LHEPATIC FUNCTION [id number] 15:46:00 Test Item Value Reference Range Interpretation Comments TOTAL PROTEIN (BEAKER) 6.9 gm/dL 6.0-8.3 Speci men slightly (test code = 770) hemolyzed ALBUMIN (BEAKER) (test 3.7 g/dL 3.5-5.0 Speci men slightly code = 1145) hemolyzed BILIRUBIN TOTAL 0.4 mg/dL 0.2-1.2 Specimen sli ghtly (BEAKER) (test code = hemoly zed 377) BILIRUBIN DIRECT 0.1 mg/dL 0.1-0.5 Specimen sl ightly (BEAKER) (test code = hemoly zed 706) ALKALINE PHOSPHATASE 88 U/L 40-150 (BEAKER) (test code = 346) AST (SGOT) (BEAKER) 21 U/L 5-34 Specimen slightly (test code = 353) hemolyzed ALT (SGPT) (BEAKER) 36 U/L 6-55 Specimen slightly (test code = 347) hemolyzed Machinist Mechanic ID - PIAYA LPROTHROMBIN [id number] 15:33:00 Test Item Value Reference Range Interpretation Comments PROTIME (BEAKER) 12.0 seconds 11.9-14.2 (test code = 759) INR (BEAKER) (test 0.90 See_Comment [Automat ed message] code = 370) The system [employer] generated this result transmitted ref erence range: <=5.90. The reference range was not used to int erpret this result as normal/abnormal . RECOMMENDED COUMADIN/WARFARIN INR THERAPY RANGESSTANDARD DOSE: 2.0 - 3.0 Includes: PROPHYLAXIS forvenous thrombosis, systemic embolization; TREATMENT for venous thrombosis and/or pulmonary embolus.HIGH RISK: Target INR is 2.5-3.5 for patients with mechanical heart valves.CBC W/PLT COUNT & AUTO DIFFERENTIAL 2021-02-14 15:28:00 Test Item Value Reference Range Interpretation Comments WHITE BLOOD CELL COUNT (BEAKER) 7.3 K/ L 3.5-10.5 (test code = 775) RED BLOOD CELL COUNT (BEAKER) 4.68 M/ L 4.63-6.08 (test code = 761) HEMOGLOBIN (BEAKER) (test code = 13.8 GM/DL 13.7-17.5 410) HEMATOCRIT (BEAKER) (test code = 40.7 % 40.1-51.0 411) MEAN CORPUSCULAR VOLUME (BEAKER) 87.0 fL 79.0-92.2 (test code = 753) MEAN CORPUSCULAR HEMOGLOBIN 29.5 pg 25.7-32.2 (BEAKER) (test code = 751) MEAN CORPUSCULAR HEMOGLOBIN CONC 33.9 GM/DL 32.3-36.5 (BEAKER) (test code = 752) RED CELL DISTRIBUTION WIDTH 13.0 % 11.6-14.4 (BEAKER) (test code = 412) PLATELET COUNT (BEAKER) (test 229 K/CU MM 150-450 code = 756) MEAN PLATELET VOLUME (BEAKER) 9.6 fL 9.4-12.4 (test code = 754) NUCLEATED RED BLOOD CELLS 0 /100 WBC 0-0 (BEAKER) (test code = 413) NEUTROPHILS RELATIVE PERCENT 50 % (BEAKER) (test code = 429) LYMPHOCYTES RELATIVE PERCENT 35 % (BEAKER) (test code = 430) MONOCYTES RELATIVE PERCENT 9 % (BEAKER) (test code = 431) EOSINOPHILS RELATIVE PERCENT 5 % (BEAKER) (test code = 432) BASOPHILS RELATIVE PERCENT 1 % (BEAKER) (test code = 437) NEUTROPHILS ABSOLUTE COUNT 3.66 K/ L 1.78-5.38 (BEAKER) (test code = 670) LYMPHOCYTES ABSOLUTE COUNT 2.51 K/ L 1.32-3.57 (BEAKER) (test code = 414) MONOCYTES ABSOLUTE COUNT (BEAKER) 0.66 K/ L 0.30-0.82 (test code = 415) EOSINOPHILS ABSOLUTE COUNT 0.35 K/ L 0.04-0.54 (BEAKER) (test code = 416) BASOPHILS ABSOLUTE COUNT (BEAKER) 0.06 K/ L 0.01-0.08 (test code = 417) IMMATURE GRANULOCYTES-RELATIVE 0 % 0-1 PERCENT (BEAKER) (test code = 2801) HCV [id number] 23:07:07 Test Item Value Reference Range Interpretation Comments HCV Ab (test code = 68818-3) Negative HCV Semi-Quantitative (test code = 09127-0) [facility] A VIRUS ANTIBODY [id number] 22:56:04 Test Item Value Reference Range Interpretation Comments HAVM Negative Semi-Quantitative (test code = 54377-2) MARIBEL (test code = HAVAb IgM Interpretative MARIBEL) Information: Reactive greater than or equal to 1.2 Biotin has been reported to cause a negative bias, interpret results relative to patient's use of biotin. [facility] B CORE ANTIBODY [id number] 22:56:04 Test Item Value Reference Range Interpretation Comments HBCM Negative Semi-Quantitative (test code = 88560-9) MARIBEL (test code = Biotin has been reported MARIBEL) to cause a negative bias, interpret results relative to patient's use of biotin. [facility] [id number] 22:50:19 Test Item Value Reference Range Interpretation Comments HBsAg Semi-Quantitative (test code = Negative Negative 5195-3) [facility] [id number] 21:54:34 Test Item Value Reference Range Interpretation Comments FERRITIN (test code = 6850.0 ng/mL 18.0-464.0 H [id number]) MARIBEL (test code = MARIBEL) Biotin has been reported to cause a negative bias, interpret results relative to patient's use of biotin. Lab Interpretation (test Abnormal code = 14909-9) [facility] [id number] 19:13:34 Test Item Value Reference Range Interpretation Comments CK (test code = 6683790641) 2920 U/L 33-194 H Lab Interpretation (test code = Abnormal 41018-5) [facility]2021-[facility]-12 18:37:28 Test Item Value Reference Range Interpretation Comments MAGNESIUM (test code = 6311064101) 2.2 mg/dL 1.7-2.4 Lab Interpretation (test code = Normal 56986-8) [facility]2021-08-12 18:37:28 Test Item Value Reference Range Interpretation Comments PHOSPHORUS (test code = 6341835533) 3.3 mg/dL 2.5-5.0 Lab Interpretation (test code = Normal 15763-4) [facility] CenterLACTATE [id number] 18:28:57 Test Item Value Reference Range Interpretation Comments LDH (test code = 6946271490) 3128 U/L 300-600 H Lab Interpretation (test code = Abnormal 69317-6) [facility] PEL[facility] W [id number] 15:15:23 No acute intra-abdominal or pelvic abnormality. Cholelithiasis. Bibasal groundglass and consolidative opacities consistent with the knownCOVID 19 pneumonia. For further details please refer to chest CT reportdone same day. IKahlil MD., have reviewed this study and agree with the abovereport.CT ABDOMEN PELVIS W CONTRAST HISTORY: 40 years-old; Male; Nausea/vomiting COMPARISON: None. TECHNIQUE AND FINDINGS: Contiguous axial imaging from the level of the lungbases through the pubic symphysiswas performed after the uncomplicatedadministration of intravenous Omnipaque contrast. Coronal and sa gittalreconstructions were obtained. ?Auto mA and/or iterative reconstructionwere used to reduce radiation dose. FINDINGS: LOWER THORAX: Bibasal scattered groundglass and consolidative opacities areseen. No cardiomegaly. LIVER: No focal hepatic lesions. Normal contour. GALLBLADDER AND BILIARY TREE: Nointra or extrahepatic biliary ductaldilation. Cholelithiasis. SPLEEN: Unremarkable. PANCREAS: No ductal dilatation or masses ADRENAL GLANDS: No adrenal lesions. KIDNEYS: No hydronephrosis, stones, or masses. Homogeneous and symmetricalenhancement. GI TRACT: No dilation or bowel wall thickening.The appendix is normal.. PERITONEUM AND RETROPERITONEUM: No free air or fluid collection. LYMPH NODES: No intra-abdominal or pelvic lymph node enlargement. PELVIS/BLADDER: Bladder is fully distended with no wall thickening. VESSELS: Unremarkable. BONES AND SOFT TISSUES: No suspicious lytic or sclerotic bony le sions. [facility], Radiant Results Inft User - 01/18/2021 10:[address] ABDOMEN PELVIS W CONTRASTHISTORY: 40 years-old; Male; Nausea/vomiting COMPARISON: None.TECHNIQUE AND FINDINGS: Contiguous axial imaging from the level of the lungbases through the pubic symphysis was performed after the uncomplicatedadministration of intravenous Omnipaque contrast. Coronal and sagittalreconstructions were obtained. Auto mA and/or iterative reconstructionwere used to reduce radiation dose.FINDINGS:LOWER THORAX: Bibasal scattered groundglass and consolidative opacities areseen. No cardiomegaly.LIVER: No focal hepatic lesions. Normal contour.GALLBLADDER AND BILIARY TREE: No intra or extrahepatic biliary ductaldilation. Cholelithiasis.SPLEEN: Unremarkable.PANCREAS: No ductal dilatation or massesADRENAL GLANDS: No adrenal lesions.KIDNEYS: No hydronephrosis, stones, or masses. Homogeneous and symmetricalenhancement.GI TRACT: No dilation or bowel wall thickening.The appendix is normal..PERITONEUM AND RETROPERITONEUM: No free air or fluid collection.LYMPH NODES: No intra- abdominal or pelvic lymph node enlargement.PELVIS/BLADDER: Bladder is fully distended with no wall thickening.VESSELS: Unremarkable.BONES AND SOFT TISSUES: No suspicious lytic or sclerotic bony lesions.IMPRESSIONNo acute intra-abdominal or pelvic abnormality.Cholelithiasis.Bibasal groundglass and consolidative opacities consistent with the knownCOVID 19 pneumonia. For further details ple ase refer to chest CT reportdone same day.IKahlil MD., have reviewed this study and agree with the abovereport.[facility] [id number] 13:31:27 1. No evidence of acute or chronic pulmonary embolism through the level ofthe subsegmental branches. 2. Patchy bilateral mainly peripheral groundglass and consolidativeopacities consistent with the known diagnosis of COVID 19 pneumonia. Preliminary Report Dictated by Resident: Leslie Vivar MD., have reviewed this study and agree with theabove report.PROCEDURE: CT CHEST WITH CONTRAST- CHEST PE PROTOCOL CLINICAL INDICATION: 40-year-old male patient with Covid positive test. COMPARISON: Chest radiograph dated 10/04/2019. TECHNIQUE: Volumetric helical CT angiogram was performed of the chest (lungapices to bases) with IV contrast. Images were reconstructed at 1.25 mmslice thickness. Corresponding axial, sagittal and coronal MIP images wereperformed. Axial MIPs and coronaland sagittal MPR images were generatedand reviewed.. FINDINGS: DEVICES: None HEART AND GREAT VESSELS: The opacification of the pulmonary vasculature issuboptimal. No filling defects are seen through the level of the segmentalpulmonary arteries. The pulmonary trunk is normal in caliber. The thoracic aorta is normal in caliber. The heart is normal in size. No pericardial abnormalities are identified.The RV to LV is normal. MEDIASTINUM AND LOWER NECK: No central airway lesions are detected. Theesophagus is within normal limits. The included thyroid gland appearsnormal. LYMPH NODES: Mildly enlarged right paratracheal, precarinal, bilateralhilar and infrahilar lymph nodes, the largest measure 1.5 cmin short axis,likely reactive. LUNGS AND PLEURA: Patchy areas of peripheral groundglass and consolidativeopacities are seen bilaterally, more pronounced at the lower lobes. Nopleural abnormality detected. VISUALIZED UPPER ABDOMEN: The included solid organs and hollow viscusappear within normal limits.OSSEOUS STRUCTURES AND SOFT TISSUES: No focal osseous lesions are detected.The soft tissues appear normal. [facility], Radiant Results Inft User - 01/18/2021 8:32 AM CDT PROCEDURE: CT CHEST WITH CONTRAST- CHEST PE PROTOCOLCLINICAL INDICATION: 40-year-old male patient with Covid positive test.COMPARISON: Chest radiograph dated 10/04/2019.TECHNIQUE: Volumetric helical CT angiogram was performed of the chest (lungapices to bases) with IV contrast. Images were reconstructed at 1.25 mmslice thickness. Corresponding axial, sagittal and coronal MIP images wereperformed. Axial MIPs and coronal and sagittal MPR images were generatedand reviewed..FINDINGS:DEVICES: None HEART AND GREAT VESSELS: The opacification of the pulmonary vasculature issuboptimal. No filling defects are seen through the level of the segmentalpulmonary arteries. The pulmonary trunk is normal in caliber.The thoracic aorta is normal in caliber.The heart is normal in size. No pericardial abnormalities are identified.The RV to LV is normal. MEDIASTINUM AND LOWER NECK: No central airway lesions are detected. Theesophagus is within normal limits. The included thyroid gland appearsnormal.LYMPH NODES: Mildly enlarged right paratracheal, precarinal, bilateralhilar and infrahilar lymph nodes, the largest measure 1.5 cm in short axis,likely reactive.LUNGS AND PLEURA: Patchy areas of peripheral groundglass and consolidativeopacities are seen bilaterally, more pronounced at the lower lobes. Nopleural abnormality detected.VISUALIZED UPPER ABDOMEN: The included solid organs and hollow vis cusappear within normal limits.OSSEOUS STRUCTURES AND SOFT TISSUES: No focal osseous lesions are detected.The soft tissues appear normal.IMPRESSION1. No evidence of acute or chronic pulmonary embolism through the level ofthe subsegmental branches.2. Patchy bilateral mainly peripheral groundglass and co nsolidativeopacities consistent with the known diagnosis of COVID 19 pneumonia.Preliminary Report Dictated by Resident: Leslie Moreira MD., have reviewed this study and agree with theabove report. [facility]. METABOLIC PANEL ([id number])2021-01-18 12:12:28 Test Item Value Reference Range Interpretation Comments NA (test code = 131 mmol/L 135-145 L 2610069567) K (test code = 3.1 mmol/L 3.5-5.0 L 7526047457) CL (test code = 95 mmol/L 98-108 L 3567935989) CO2 TOTAL (test code = 25 mmol/L 23-31 0493036735) AGAP (test code = 2-16 4383369242) BUN (test code = 13 mg/dL 7-23 2709054438) GLUCOSE (test code = 124 mg/dL 70-110 H 2024421336) CREATININE (test code = 1.11 mg/dL 0.60-1.25 4312777420) TOTAL BILI (test code = 0.9 mg/dL 0.1-1.5 7846826180) CALCIUM (test code = 8.2 mg/dL 8.6-10.6 L 7995434545) T PROTEIN (test code = 6.9 g/dL 6.3-8.2 4608500364) ALBUMIN (test code = 3.7 g/dL 3.5-5.0 2825351627) ALK PHOS (test code = 121 U/L 34-122 4369375258) ALTv (test code = 428 U/L 5-50 H 1742-6) AST(SGOT) (test code = 638 U/L 13-40 H 0725988734) eGFR (test code = mL/min/1.73m2 6515786989) MARIBEL (test code = MARIBEL) Association of Glomerular Filtration Rate (GFR) and Staging of Kidney Disease* + --+ --+ ------+| GFR (mL/min/1.73 m2) ?| With Kidney Damage ?| ?Without Kidney Damage+ --------+ --------+ +| ?>90 ?| ?Stage one ?| ? Normal ?+ ---+ ---+ -------+| ?60-89 ?| ?Stage two ?| ? Decreased GFR ? + --+ --+ ------+| ?30-59 ?| ?Stage three ?| ? Stage three ? + --+ --+ ------+| ?15-29 ?| ?Stage four ? | ? Stage four ?+ ---+ ---+ -------+| ?<15 (or dialysis) ? ?| ?Stage five ? | ? Stage five ?+ ---+ ---+ -------+ *Each stage assumes the associated GFR level has been in effect for at least three months. ?Stages 1 to 5, with or without kidney disease, indicate chronic kidney disease. Notes: Determination of stages one and two (with eGFR >59mL/min/1.73 m2) requires estimation of kidney damage for at least three months as defined by structural or functional abnormalities of the kidney, manifested by either:Pathological abnormalities or Markers of kidney damage (including abnormalities in the composition of the blood or urine or abnormalities in imaging tests). Lab Interpretation Abnormal (test code = 41286-1) [facility] WITH [id number] 12:08:54 Test Item Value Reference Range Interpretation Comments WBC (test code = See_Comment L [Automated 5690-2) message] The sy stem which generated this result transmitted reference range : 4.20 - 10.70 10*3/?L. The reference range was not used to interpret this result as normal/abnormal . RBC (test code = See_Comment H [Automated 789-8) message] The sy stem which generated this result transmitted reference range : 4.26 - 5.52 10*6/?L. The reference range was not used to interpret this result as normal/abnormal . HGB (test code = 15.9 g/dL 12.2-16.4 718-7) HCT (test code = 45.1 % 38.4-49.3 4544-3) MCV (test code = 81.4 fL 81.7-95.6 L 787-2) MCH (test code = 28.7 pg 26.1-32.7 785-6) MCHC (test code = 35.3 g/dL 31.2-35.0 H 786-4) RDW-SD (test code = 36.8 fL 38.5-51.6 L 48853-2) RDW-CV (test code = 12.2 % 12.1-15.4 788-0) PLT (test code = See_Comment L [Automated 777-3) message] The sy stem which generated this result transmitted reference range : 150 - 328 10*3/ ?L. The reference r autumn was not used to interpret this result as normal/abnormal . MPV (test code = 11.0 fL 9.8-13.0 21496-8) IPF % (test code = 6.6 % 1.2-10.7 Platelet count 2321323265) measured by fluorescence method. NRBC/100 WBC (test See_Comment [Automat ed code = 8617170213) message] The system which generated this result transmitted reference range : 0.0 - 10.0 /100 WBCs. The refer ence range was not u sed to interpret th is result as normal/abnormal . NRBC x10^3 (test code <0.01 See_Comment [Auto mated = 7406488702) message] The s ystem which generated this result transmitted reference range : 10*3/?L. The reference range was not used to interpret this result as normal/abnormal . GRAN MAT (NEUT) % 67.2 % (test code = 770-8) IMM GRAN % (test code 0.30 % = 8496203665) LYMPH % (test code = 28.1 % 736-9) MONO % (test code = 4.1 % 5905-5) EOS % (test code = 0.0 % 713-8) BASO % (test code = 0.3 % 706-2) GRAN MAT x10^3(ANC) 2.61 10*3/uL 1.99-6.95 (test code = 6094212744) IMM GRAN x10^3 (test <0.03 0.00-0.06 code = 7081277815) LYMPH x10^3 (test code 1.09 10*3/uL 1.09-3.23 = 731-0) MONO x10^3 (test code 0.16 10*3/uL 0.36-1.02 L = 742-7) EOS x10^3 (test code = <0.03 0.06-0.53 L 711-2) BASO x10^3 (test code <0.03 0.01-0.09 = 704-7) Lab Interpretation Abnormal (test code = 99608-6) [id number] 12:05:45 Test Item Value Reference Interpretation Comments Range D-DIMER (test code = See_Comment H [Autom ated 2251412494) message] The system which generated this result transmitted reference range : <0.41 ?g/mL (FEU). The reference range was not used to interpret this result as normal/abnormal . MARIBEL (test code = This test may be MARIBEL) used in conjunction with a clinical pretest probability (PTP) assessment model to exclude venous thromboembolism (VTE) in patients suspected of deep venous thrombosis (DVT) and pulmonary embolism (PE) A D-Dimer value less than 0.50 ?g/ml (FEU) has a negative predicative value of 96 to 100% (95% CI)and 97 to 100% (95% CI) as an aid in the diagnosis of deep vein thrombosis (DVT) and pulmonary embolism when there is low or moderate pretest probability of PE or DVT. D-Dimer values are expressed in initial fibrinogen equivalent units (FEU)" The assay results should be used with other information, including the clinical context, in forming a diagnosis. Lab Interpretation Abnormal (test code = 47163-1) [facility] CenterUrinalysis2020-09-20 11:28:00 Test Item Value Reference Range Interpretation Comments APPEARANCE (test code = Clear Clear 0136984852) COLOR (test code = Yellow Yellow 0247395018) PH (test code = 4.8-8.0 4027076826) SP GRAVITY (test code = 1.003-1.030 7179176947) GLU U QUAL (test code = Normal Normal 4550094599) BLOOD (test code = Negative Negative 2408863387) KETONES (test code = Negative Negative 4214435690) PROTEIN (test code = Negative Negative 2887-8) UROBILIN (test code = Normal Normal 4791999944) BILIRUBIN (test code = Negative Negative 8073243353) NITRITE (test code = Negative Negative 4288938414) LEUK DALLAS (test code = Negative Negative 4840151276) RBC/HPF (test code = See_Comment [Autom ated message] 9927287499) The system [employer] generated this result transmitted ref erence range: 0 - 3 HP F. The reference range was not used to int erpret this result as normal/abnormal . WBC/HPF (test code = See_Comment [Autom ated message] 0841483338) The system [employer] generated this result transmitted ref erence range: 0 - 5 HP F. The reference range was not used to int erpret this result as normal/abnormal . BACTERIA (test code = Few Negative A 9088314657) MUCOUS (test code = Slight Negative LPF A 5359970821) Lab Interpretation (test Abnormal code = 29188-8) [facility] CenterComplete Metabolic [id number] 11:19:00 Test Item Value Reference Range Interpretation Comments NA (test code = 136 mmol/L 135-145 7351070438) K (test code = 3.9 mmol/L 3.5-5 8876910265) CL (test code = 102 mmol/L 98-108 2029268559) CO2 TOTAL (test code = 25 mmol/L 23-31 9409888470) AGAP (test code = 2-16 2824523207) BUN (test code = 14 mg/dL 7-23 4343679596) GLUCOSE (test code = 120 mg/dL 70-110 H 8077505410) CREATININE (test code = 0.98 mg/dL 0.6-1.25 8974919060) TOTAL BILI (test code = 0.4 mg/dL 0.1-1.0 4964588573) CALCIUM (test code = 9.1 mg/dL 8.6-10.6 3414765955) T PROTEIN (test code = 7.2 g/dL 6.3-8.2 1017509242) ALBUMIN (test code = 4.0 g/dL 3.5-5 4616846939) ALK PHOS (test code = 75 U/L 34-122 2674266090) ALTv (test code = 37 U/L 5-50 1742-6) AST(SGOT) (test code = 25 U/L 13-40 6589432977) eGFR Calculation mL/min/1.73m2 (Non-) (test code = 2473744731) eGFR Calculation mL/min/1.73m2 () (test code = 7160474676) MARIBEL (test code = MARIBEL) Association of Glomerular Filtration Rate (GFR) and Staging of Kidney Disease* + --+ --+ ------+| GFR (mL/min/1.73 m2) ?| With Kidney Damage ?| ?Without Kidney Damage+ --------+ --------+ +| ?>90 ?| ?Stage one ?| ? Normal ?+ ---+ ---+ -------+| ?60-89 ?| ?Stage two ?| ? Decreased GFR ? + --+ --+ ------+| ?30-59 ?| ?Stage three ?| ? Stage three ? + --+ --+ ------+| ?15-29 ?| ?Stage four ? | ? Stage four ?+ ---+ ---+ -------+| ?<15 (or dialysis) ? ?| ?Stage five ? | ? Stage five ?+ ---+ ---+ -------+ *Each stage assumes the associated GFR level has been in effect for at least three months. ?Stages 1 to 5, with or without kidney disease, indicate chronic kidney disease. Notes: Determination of stages one and two (with eGFR >59mL/min/1.73 m2) requires estimation of kidney damage for at least three months as defined by structural or functional abnormalities of the kidney, manifested by either:Pathological abnormalities or Markers of kidney damage (including abnormalities in the composition of the blood or urine or abnormalities in imaging tests). Lab Interpretation Abnormal (test code = 62381-5) [facility] CenterLip[facility], [id number] 11:19:00 Test Item Value Reference Range Interpretation Comments LIPASE (test code = 1369767586) 85 U/L 0-220 Lab Interpretation (test code = Normal 49718-9) [facility] CenterCB with [id number] 10:57:00 Test Item Value Reference Range Interpretation Comments WBC (test code = See_Comment H [Automated 1084-2) message] The sy stem which generated this result transmitted reference range : 4.20 - 10.70 10*3/?L. The reference range was not used to interpret this result as normal/abnormal . RBC (test code = See_Comment [Automated 281-8) message] The sy stem which generated this result transmitted reference range : 4.26 - 5.52 10*6/?L. The reference range was not used to interpret this result as normal/abnormal . HGB (test code = 15.2 g/dL 12.2-16.4 718-7) HCT (test code = 44.4 % 38.4-49.3 4544-3) MCV (test code = 84.9 fL 81.7-95.6 787-2) MCH (test code = 29.1 pg 26.1-32.7 785-6) MCHC (test code = 34.2 g/dL 31.2-35 786-4) RDW-SD (test code = 36.7 fL 38.5-51.6 L 22426-5) RDW-CV (test code = 11.9 % 12.1-15.4 L 788-0) PLT (test code = See_Comment [Automated 777-3) message] The sy stem which generated this result transmitted reference range : 150 - 328 10*3/ ?L. The reference r autumn was not used to interpret this result as normal/abnormal . MPV (test code = 9.4 fL 9.8-13 L 44230-3) NRBC/100 WBC (test See_Comment [Automat ed code = 0016473516) message] The system which generated this result transmitted reference range : 0.0 - 10.0 /100 WBCs. The refer ence range was not u sed to interpret th is result as normal/abnormal . NRBC x10^3 (test code <0.01 See_Comment [Auto mated = 1478794849) message] The s ystem which generated this result transmitted reference range : 10*3/?L. The reference range was not used to interpret this result as normal/abnormal . GRAN MAT (NEUT) % 62.7 % (test code = 770-8) IMM GRAN % (test code 0.40 % = 4808124698) LYMPH % (test code = 24.8 % 736-9) MONO % (test code = 7.5 % 5905-5) EOS % (test code = 3.9 % 713-8) BASO % (test code = 0.7 % 706-2) GRAN MAT x10^3(ANC) 7.23 10*3/uL 1.99-6.95 H (test code = 5608033967) IMM GRAN x10^3 (test 0.05 10*3/uL 0-0.06 code = 7270143243) LYMPH x10^3 (test code 2.86 10*3/uL 1.09-3.23 = 731-0) MONO x10^3 (test code 0.86 10*3/uL 0.36-1.02 = 742-7) EOS x10^3 (test code = 0.45 10*3/uL 0.06-0.53 711-2) BASO x10^3 (test code 0.08 10*3/uL 0.01-0.09 = 704-7) Lab Interpretation Abnormal (test code = 86964-9) [facility] CenterXR CHEST 1 [id number] 04:15:59CHEST ONE VIEW HISTORY: ?Right-sided pain TECHNIQUE: ?AP view of the chest is obtained. FINDINGS: Lungs are clear. Heart size and mediastinal silhouette arenormal. No pleural effusion or pneumothorax is seen. No definite displaced rib fracture is seen in the visualized rib cage. CONCLUSIONS: No acute cardiopulmonary disease. [facility], Radiant Results Inft User - 10/04/2019 11:17 PM CDTCHEST ONE VIEWHISTORY: Right-sided painTECHNIQUE: AP view of the chest is obtained.FINDINGS: Lungs are clear. Heart size and mediastinal silhouette arenormal. No pleural effusion or pneumothorax is seen.No definite displaced rib fracture is seen in the visualized rib cage.CONCLUSIONS: No acute cardiopulmonary disease.[facility] CenteraPTT2020-04-28 04:06:00 Test Item Value Reference Range Interpretation Comments APTT Patient (test See_Comment [Automat ed code = 3173-2) message] The system which generated this result transmitted reference range : 23 - 38 Seconds . The reference range was not used to interpr et this result as normal/abnormal . MARIBEL (test code = MARIBEL) The [facility] patient population mean normal value for aPTT is 30 seconds. Lab Interpretation Normal (test code = 04740-1) [facility] CenterProthrombin Time (PT) / [id number] 04:06:00 Test Item Value Reference Range Interpretation Comments PROTIME PATIENT (test See_Comment [Auto mated message] code = 5964-2) The system wh ich generated this result transmitted ref erence range: 12.0 - 1 4.7 Seconds. The re ference range was not u sed to interpret this result as normal/abnor mal. INR (test code = 6301-6) Nor mal INR <1.1; Warfarin Therap eutic range 2.0 to 3. 0 or 2.5 to 3.5, dep ending upon the indica tions. Lab Interpretation (test Normal code = 04501-3) [facility] CenterUrinalysis2020-04-28 04:02:00 Test Item Value Reference Range Interpretation Comments APPEARANCE (test code = Clear Clear 7336343535) COLOR (test code = Straw Yellow A 5952603571) PH (test code = 4.8-8.0 4718383283) SP GRAVITY (test code = 1.003-1.030 7157884348) GLU U QUAL (test code = Normal Normal 6559023560) BLOOD (test code = Negative Negative 3974761136) KETONES (test code = Negative Negative 2856481792) PROTEIN (test code = Negative Negative 2887-8) UROBILIN (test code = 2.0 mg/dL Normal A 7354782510) BILIRUBIN (test code = Negative Negative 3223674184) NITRITE (test code = Negative Negative 9007842932) LEUK DALLAS (test code = Negative Negative 0924924790) RBC/HPF (test code = <1 See_Comment [Autom ated message] 5647371220) The system [employer] generated this result transmit ngoc reference range : 0 - 3 HPF. The refe rence range was not u sed to interpret th is result as normal/abnormal . WBC/HPF (test code = See_Comment [Autom ated message] 6175521219) The system [employer] generated this result transmit ngoc reference range : 0 - 5 HPF. The refe rence range was not u sed to interpret th is result as normal/abnormal . BACTERIA (test code = Few Negative A 8201538312) MUCOUS (test code = Slight Negative LPF A 3383759476) SQ EPITH (test code = <1 HPF 7541845355) Lab Interpretation (test Abnormal code = 49984-2) [facility] CenterBasic Metabolic Panel (NA, K, CL, CO2, GLUCOSE, BUN, CREATININE, CA)2019-10-05 04:00:00 Test Item Value Reference Range Interpretation Comments NA (test code = 139 mmol/L 135-145 5652381470) K (test code = 3.8 mmol/L 3.5-5 2164817287) CL (test code = 104 mmol/L 98-108 3069346075) CO2 TOTAL (test code = 28 mmol/L 23-31 2191224708) AGAP (test code = 2-16 6879235576) BUN (test code = 12 mg/dL 7-23 9323495565) GLUCOSE (test code = 105 mg/dL 70-110 1729281668) CREATININE (test code 0.85 mg/dL 0.6-1.25 = 0302790341) CALCIUM (test code = 9.5 mg/dL 8.6-10.6 8369305020) eGFR Calculation mL/min/1.73m2 (Non-) (test code = 9265105762) eGFR Calculation mL/min/1.73m2 () (test code = 0808970168) MARIBEL (test code = MARIBEL) Association of Glomerular Filtration Rate (GFR) and Staging of Kidney Disease* + -+ + ---+| GFR (mL/min/1.73 m2) ?| With Kidney Damage ?| ?Without Kidney Damage+ -------+ ------+ ---------+| ?>90 ?| ?Stage one ?| ? Normal ?+ --+ -+ ----+| ?60-89 ?| ?Stage two ?| ? Decreased GFR ? + -+ + ---+| ?30-59 ?| ?Stage three ?| ? Stage three ? + -+ + ---+| ?15-29 ?| ?Stage four ? | ? Stage four ?+ --+ -+ ----+| ?<15 (or dialysis) ? ?| ?Stage five ? | ? Stage five ?+ --+ -+ ----+ *Each stage assumes the associated GFR level has been in effect for at least three months. ?Stages 1 to 5, with or without kidney disease, indicate chronic kidney disease. Notes: Determination of stages one and two (with eGFR >59mL/min/1.73 m2) requires estimation of kidney damage for at least three months as defined by structural or functional abnormalities of the kidney, manifested by either:Pathological abnormalities or Markers of kidney damage (including abnormalities in the composition of the blood or urine or abnormalities in imaging tests). [facility] CenterHepatic Function Panel (ALB, T.PRO, BILI T, BU/BC, ALT, AST, ALK PHOS)2019-10-05 04:00:00 Test Item Value Reference Range Interpretation Comments TOTAL BILI (test code = 2999423194) 0.6 mg/dL 0.1-1.1 BILI UNCON (test code = 2754578602) 0.7 mg/dL 0.1-1.1 BILI CONJ (test code = 2544923758) 0.0 mg/dL 0-0.3 T PROTEIN (test code = 1149209125) 7.9 g/dL 6.3-8.2 ALBUMIN (test code = 3334569186) 4.6 g/dL 3.5-5 ALK PHOS (test code = 0899154929) 81 U/L 34-122 ALTv (test code = 1742-6) 55 U/L 5-50 H AST(SGOT) (test code = 6294311936) 36 U/L 13-40 Lab Interpretation (test code = Abnormal 75441-2) [facility] CenterLipase [id number] 04:00:00 Test Item Value Reference Range Interpretation Comments LIPASE (test code = 3877196636) 95 U/L 0-220 Lab Interpretation (test code = Normal 29356-6) [facility] CenterCREATINE [id number] 04:00:00 Test Item Value Reference Range Interpretation Comments CK (test code = 9555870035) 255 U/L 33-194 H Lab Interpretation (test code = Abnormal 34028-4) [facility] CenterCBC WITH [id number] 03:53:00 Test Item Value Reference Range Interpretation Comments WBC (test code = See_Comment [Automated 1678-2) message] The sy stem which generated this result transmitted reference range : 4.20 - 10.70 10*3/?L. The reference range was not used to interpret this result as normal/abnormal . RBC (test code = See_Comment [Automated 083-2) message] The sy stem which generated this result transmitted reference range : 4.26 - 5.52 10*6/?L. The reference range was not used to interpret this result as normal/abnormal . HGB (test code = 15.2 g/dL 12.2-16.4 718-7) HCT (test code = 44.7 % 38.4-49.3 4544-3) MCV (test code = 85.5 fL 81.7-95.6 787-2) MCH (test code = 29.1 pg 26.1-32.7 785-6) MCHC (test code = 34.0 g/dL 31.2-35 786-4) RDW-SD (test code = 36.7 fL 38.5-51.6 L 78435-9) RDW-CV (test code = 11.7 % 12.1-15.4 L 788-0) PLT (test code = See_Comment [Automated 777-3) message] The sy stem which generated this result transmitted reference range : 150 - 328 10*3/ ?L. The reference r autumn was not used to interpret this result as normal/abnormal . MPV (test code = 9.5 fL 9.8-13 L 47757-4) NRBC/100 WBC (test See_Comment [Automat ed code = 1106637215) message] The system which generated this result transmitted reference range : 0.0 - 10.0 /100 WBCs. The refer ence range was not u sed to interpret th is result as normal/abnormal . NRBC x10^3 (test code <0.01 See_Comment [Auto mated = 5736369854) message] The s ystem which generated this result transmitted reference range : 10*3/?L. The reference range was not used to interpret this result as normal/abnormal . GRAN MAT (NEUT) % 58.2 % (test code = 770-8) IMM GRAN % (test code 0.50 % = 1153800101) LYMPH % (test code = 29.9 % 736-9) MONO % (test code = 7.9 % 5905-5) EOS % (test code = 2.9 % 713-8) BASO % (test code = 0.6 % 706-2) GRAN MAT x10^3(ANC) 5.71 10*3/uL 1.99-6.95 (test code = 7813117678) IMM GRAN x10^3 (test 0.05 10*3/uL 0-0.06 code = 4421976145) LYMPH x10^3 (test code 2.94 10*3/uL 1.09-3.23 = 731-0) MONO x10^3 (test code 0.78 10*3/uL 0.36-1.02 = 742-7) EOS x10^3 (test code = 0.28 10*3/uL 0.06-0.53 711-2) BASO x10^3 (test code 0.06 10*3/uL 0.01-0.09 = 704-7) Lab Interpretation Abnormal (test code = 42368-7) [facility] CenterXR [id number] 03:50:121. Paucity of gas in the small bowel can be seen with fluid-filled loops ofbowel. EXAM: KUB HISTORY: Abdomen pain TECHNIQUE:KUB radiograph is obtained. FINDINGS:Examination is limited in quality secondary to patient's bodyhabitus. There is paucity of gas in the small bowel. Colon is outlined bythe abdomen. No definite radiopaque calcifications are seen superimposedover the renal shadows. No free airis noted under the diaphragm. [facility], Radiant Results Inft User - 10/04/2019 10:51 PM CDTEXAM: KUBHISTORY: Abdomen painTECHNIQUE:KUB radiograph is obtained.FINDINGS:Examination is limited in quality secondary to patient's bodyhabitus. There is paucity of gas in the small bowel. Colon is outlined bythe abdomen. No definite radiopaque calcifications are seen superimposedover the renal shadows. No free air is noted under the diaphragm.IMPRESSION1. Paucity of gas in the small bowel can be seen with fluid-filled loops ofbowel.[facility] [facility]
[2021-08-06] MEDS ORDERED: MORPHINE 4 MG/ML SYR ONE ×2 (10:30→12:42)
[2021-08-06] MEDS ORDERED: ONDANSETRON 4 MG/2 ML VIAL ONE (10:30)
--- NOTE | 2021-08-06 11:47 | RAD REPORT ---
EXAM DESCRIPTION: RAD - Knee Left 3 View - 08/06/2021 10:57 am CLINICAL HISTORY: PAIN COMPARISON: No comparisons FINDINGS: No acute fracture. No malalignment. No significant focal degenerative changes. Soft tissue swelling along the anterior aspect of the knee. IMPRESSION: No acute osseous abnormality involving the left knee.
--- NOTE | 2021-08-06 12:00 | RAD REPORT ---
EXAM DESCRIPTION: CT - Knee Left Wo Con - 08/06/2021 11:44 am CLINICAL HISTORY: r/o fracture COMPARISON: Knee Left 3 View dated 08/06/2021 FINDINGS: No left knee fracture identified. No malalignment. Soft tissue swelling along the ventral aspect of the knee. No significant focal degenerative changes are identified. No evidence of lipohema rthrosis. No significant knee effusion. IMPRESSION: No acute osseus abnormality involving the left knee.
--- NOTE | 2021-08-06 12:26 | RAD REPORT ---
EXAM DESCRIPTION: RAD - Ankle Left 3 View - 08/06/2021 12:14 pm CLINICAL HISTORY: PAIN COMPARISON: No comparisons FINDINGS/IMPRESSION: No acute fracture. No malalignment. Plantar aspect calcaneal spurring.
--- NOTE | 2021-08-06 17:45 | RAD REPORT ---
EXAM DESCRIPTION: MRI - Knee Left Wo Cont - 08/06/2021 5:34 pm CLINICAL HISTORY: ICD S 83.92 XD COMPARISON: CT August 06, 2021 TECHNIQUE: Axial, sagittal and coronal magnetic resonance imaging left knee pain FINDINGS: A complete tear patella tendon with retraction of the patella superiorly. No tear medial/lateral menisci The ACL and PCL are intact. The medial and lateral collateral ligaments are normal. The quadriceps tendon intact. Patellar facet cartilage is normal Moderate joint effusion. Marked edema within the anterior subcutaneous tissues IMPRESSION: Complete tear patellar tendon with retraction of the patella superiorly
[2021-08-06] MEDS ORDERED: HYDROCODONE/APAP 10/325 TAB ONE (17:57)
--- NOTE | 2021-08-06 18:15 | ER ---
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 Coronavirus screen: Vaccine status: Patient reports being unvaccinated. Ebola Screen: No symptoms or risks identified at this time. Initial Sepsis Screen: Does the patient meet any 2 criteria? No. Patient's initial sepsis screen is negative. Does the patient have a suspected source of infection? No. Patient's initial sepsis screen is negative. Risk Assessment: Do you want to hurt yourself or someone else? Patient reports no desire to harm self or others. Onset of symptoms was August 06, 2021. 10:15 Method Of Arrival: EMS: [facility] ph 10:15 Acuity: HENRY 4 ph Historical: - Allergies: 10:18 No Known Allergies; ph - Home Meds: 10:44 None [Active]; tw2 - PMHx: 10:44 None; tw2 - Immunization history:: Adult Immunizations unknown. - Social history:: Smoking status: Patient denies any tobacco usage or history of. Screenin:19 Abuse screen: Denies threats or abuse. Denies injuries from another. Nutritional ph screening: No deficits noted. Tuberculosis screening: No symptoms or risk factors identified. Fall Risk None identified. Assessment: 10:35 General: Appears in no apparent distress. obese, well groomed, Behavior is calm, tw2 cooperative, appropriate for age. Pain: Complains of pain in left knee. Neuro: Level of Consciousness is awake, alert, obeys commands, Oriented to person, place, time, situation. Cardiovascular: Patient's skin is warm and dry. Respiratory: Airway is patent Respiratory effort is even, unlabored, Respiratory pattern is regular, symmetrical. GI: No signs and/or symptoms were reported involving the gastrointestinal system. : No signs and/or symptoms were reported regarding the genitourinary system. Musculoskeletal: Circulation, motion, and sensation intact. Reports pain in left knee. 10:43 Reassessment: xray at bedside at this time. tw2 12:51 Reassessment: Patient appears in no apparent distress at this time. Patient and/or tw2 family updated on plan of care and expected duration. Pain level reassessed. Patient is alert, oriented x 3, equal unlabored respirations, skin warm/dry/pink. 16:27 Reassessment: Patient appears in no apparent distress at this time. Patient and/or ld1 family updated on plan of care and expected duration. Pain level reassessed. Patient is alert, oriented x 3, equal unlabored respirations, skin warm/dry/pink. Vital Signs: 10:15 BP 156 / 101; Pulse 87; Resp 18; Temp 97.8; Pulse Ox 98% on R/A; Weight 122.47 kg; ph Height 5 ft. 10 in. (177.80 cm); 12:50 BP 152 / 92; Pulse 82; Resp 17; Pulse Ox 98% on R/A; Pain 5/10; tw2 13:50 BP 132 / 80; Pulse 77; Resp 17; Pulse Ox 98% on R/A; tw2 14:33 BP 130 / 78; Pulse 71; Resp 17; Pulse Ox 98% on R/A; tw2 16:07 BP 140 / 84; Pulse 77; Resp 18; Pulse Ox 99% on R/A; ld1 17:45 BP 143 / 79; Pulse 82; Resp 18; Pulse Ox 99% on R/A; ld1 10:15 Body Mass Index 38.74 (122.47 kg, 177.80 cm) ph ED Course: 10:14 Patient arrived in ED. ph 10:17 Jad Samuel PA is PHCP. cp 10:17 Jad Preston MD is Attending Physician. cp 10:18 Triage completed. ph 10:19 Arm band placed on Patient placed in an exam room. ph 10:19 Patient has correct armband on for positive identification. Bed in low position. Call light in reach. Side rails up X 1. Pulse ox on. NIBP on. Door closed. Noise minimized. Warm blanket given. 10:20 Maintain EMS IV. Dressing intact. Good blood return noted. Site clean \\T\\ dry. tw2 10:25 Amy Cowart RN is Primary Nurse. tw2 10:58 XRAY Knee LEFT 3 view In Process Unspecified. EDMS 11:44 Knee Left Wo Con In Process Unspecified. EDMS 12:14 XRAY Ankle LEFT 3 view In Process Unspecified. EDMS 13:12 Awaiting: MRI exam at this time. tw2 15:00 Report given to YVES Stauffer. tw2 16:20 Primary Nurse role handed off by Amy Cowart RN bd 16:27 Xiomy Cormier RN is Primary Nurse. ld1 17:34 Knee Left Wo Cont In Process Unspecified. EDMS 19:03 No provider procedures requiring assistance completed. IV discontinued, intact, ld1 bleeding controlled, No redness/swelling at site. Administered Medications: 10:28 Drug: Zofran (Ondansetron) 4 mg Route: IVP; Site: right hand; vg1 12:48 Follow up: Response: No adverse reaction tw2 10:30 Drug: morphine 4 mg Route: IVP; Site: right hand; vg1 12:43 Follow up: Response: No adverse reaction tw2 12:48 Drug: morphine 4 mg {Note: RASS 0.} Route: IVP; Site: left wrist; tw2 18:04 Drug: [place] (HYDROcodone-acetaminophen) 10 mg-325 mg 1 tabs Route: PO; ld1 Outcome: 18:14 Discharge ordered by . cp 19:03 Discharged to home ambulatory, with crutches, with family. ld1 19:03 Condition: stable 19:03 Discharge instructions given to patient, family, Instructed on discharge instructions, follow up and referral plans. medication usage, Demonstrated understanding of instructions, follow-up care, medications, Prescriptions given X 2. 19:03 Patient left the ED. ld1 Signatures: Dispatcher [employer] EDMS Patricia Duff Patricia RN RN ph Jad Samuel PA PA cp Wise, Tara, RN RN tw2 Katelyn Garza RN RN vg1 Xiomy Cormier RN RN ld1 Corrections: (The following items were deleted from the chart) 10:28 10:27 General: Appears in no apparent distress. Behavior is calm, cooperative, ph appropriate for age, ph 10: 10:27 Pain: ph ph
--- NOTE | 2021-08-06 18:15 | EDPHYS ---
Physician Documentation [facility] Name: Milton Reeves Age: 40 yrs Sex: Male : 1980 Arrival Date: 08/06/2021 Time: 10:14 Bed 19 Private MD: ED Physician Jad Preston HPI: 08/06 10:25 This 40 yrs old Male presents to ER via EMS with complaints of Knee Pain. cp 10:25 The patient presents with decreased range of motion, an injury, pain, that is acute. cp The complaints affect the left knee. Context: resulted from a mis-step, while walking down stairs. Onset: The symptoms/episode began/occurred just prior to arrival. 10:25 Associated signs and symptoms: Pertinent positives: weakness, Pertinent negatives calf cp tenderness, numbness. Historical: - Allergies: 10:18 No Known Allergies; ph - Home Meds: 10:44 None [Active]; tw2 - PMHx: 10:44 None; tw2 - Immunization history:: Adult Immunizations unknown. - Social history:: Smoking status: Patient denies any tobacco usage or history of. ROS: 10:30 MS/extremity: Positive for decreased range of motion, pain, swelling, tenderness, of cp the left knee. 10:30 Constitutional: Negative for body aches, chills, fever, poor PO intake. cp 10:30 Neck: Negative for pain with movement, pain at rest. 10:30 Back: Negative for pain at rest, pain with movement. 10:30 Neuro: Negative for numbness. 10:30 All other systems are negative. Exam: 10:35 Constitutional: The patient appears in no acute distress, alert, awake, non-toxic, well cp developed, well nourished. 10:35 Head/Face: Normocephalic, atraumatic. cp 10:35 Chest/axilla: Inspection: normal, Palpation: is normal, no crepitus, no tenderness. 10:35 Cardiovascular: Rate: normal. 10:35 Respiratory: the patient does not display signs of respiratory distress, Respirations: normal, no use of accessory muscles, no retractions, labored breathing, is not present, Breath sounds: are clear throughout, no decreased breath sounds, no stridor, no wheezing. 10:35 Abdomen/GI: Inspection: abdomen appears normal, Palpation: abdomen is soft and non-tender, in all quadrants. 10:35 Back: pain, is absent, ROM is normal. 10:35 Musculoskeletal/extremity: Extremities: grossly normal except: noted in the anterior aspect left knee: pain, swelling, tenderness, palpable defect of left patella tendon, ROM: patient unable to lift lower leg and extend at knee, Pulses: noted to be 2+ in the left dorsalis pedis artery, the left knee Severe pain noted. 10:35 Skin: cellulitis, is not appreciated, no rash present. 10:35 Neuro: Orientation: to person, place \T\ time. Mentation: is normal. Vital Signs: 10:15 BP 156 / 101; Pulse 87; Resp 18; Temp 97.8; Pulse Ox 98% on R/A; Weight 122.47 kg; ph Height 5 ft. 10 in. (177.80 cm); 12:50 BP 152 / 92; Pulse 82; Resp 17; Pulse Ox 98% on R/A; Pain 5/10; tw2 13:50 BP 132 / 80; Pulse 77; Resp 17; Pulse Ox 98% on R/A; tw2 14:33 BP 130 / 78; Pulse 71; Resp 17; Pulse Ox 98% on R/A; tw2 16:07 BP 140 / 84; Pulse 77; Resp 18; Pulse Ox 99% on R/A; ld1 17:45 BP 143 / 79; Pulse 82; Resp 18; Pulse Ox 99% on R/A; ld1 10:15 Body Mass Index 38.74 (122.47 kg, 177.80 cm) ph Procedures: 18:15 Splinting: Splint applied to left knee using knee immobilizer, applied by nurse. cp Examined by me, post splint application: neurovascular intact, Patient tolerated well. MDM: 10:18 Patient medically screened. cp 11:00 Differential diagnosis: dislocation, open fracture, closed fracture, contusion, tendon cp rupture, ligament rupture. 11:14 ED course: no results on [place] Prescription website for controlled meds. cp 18:05 Data reviewed: vital signs, nurses notes, radiologic studies, CT scan, MRI, plain cp films, I have discussed the patient's presentation/case with the attending Emergency Department Physician; and as a result, I will discharge patient. 18:05 Test interpretation: by ED physician or midlevel provider: ECG, plain radiologic cp studies. Physician consultation: Elias Deutsch MD was called at 18:00, was contacted at 18:00, regarding patient's condition, outpatient follow-up, reports he would see patient in clinic but his practice does not cover worker's comp injuries. 08/06 10:18 Order name: XRAY Knee LEFT 3 view; Complete Time: 11:50 cp 08/06 11:50 Interpretation: Report reviewed. cp 08/06 11:10 Order name: XRAY Ankle LEFT 3 view; Complete Time: 12:31 cp 08/06 12:31 Interpretation: Report reviewed. cp 08/06 11:11 Order name: Knee Left Wo Con; Complete Time: 12:26 EDMS 08/06 12:30 Interpretation: Report reviewed. cp 08/06 14:10 Order name: Knee Left Wo Cont; Complete Time: 17:48 EDMS 08/06 10:18 Order name: IV; Complete Time: 10:25 cp 08/06 11:07 Order name: Knee Immobilizer; Complete Time: 18:04 cp 08/06 17:50 Order name: Crutches; Complete Time: 18:04 cp Administered Medications: 10:28 Drug: Zofran (Ondansetron) 4 mg Route: IVP; Site: right hand; vg1 12:48 Follow up: Response: No adverse reaction tw2 10:30 Drug: morphine 4 mg Route: IVP; Site: right hand; vg1 12:43 Follow up: Response: No adverse reaction tw2 12:48 Drug: morphine 4 mg {Note: RASS 0.} Route: IVP; Site: left wrist; tw2 18:04 Drug: [place] (HYDROcodone-acetaminophen) 10 mg-325 mg 1 tabs Route: PO; ld1 Disposition Summary: 08/06/21 18:14 Discharge Ordered Location: Home cp Problem: new cp Symptoms: have improved cp Condition: Stable cp Diagnosis - Spontaneous rupture of other tendons, left lower leg - left patella tendon cp - Fall (on) (from) other stairs and steps, initial encounter cp Followup: cp - With: Private Physician - When: 2 - 3 days - Reason: left patella tendon rupture, needs Orthopedist Discharge Instructions: - Patellar Tendon Tear cp - Discharge Summary Sheet tw2 Forms: - Medication Reconciliation Form cp - Thank You Letter cp - Work release form tw2 - Antibiotic Education cp - Prescription Opioid Use cp Prescriptions: - Ibuprofen 800 mg Oral Tablet - take 1 tablet by ORAL route every 8 hours As needed take with food; 30 tablet; cp Refills: 0, Product Selection Permitted - Tylenol-Codeine #3 300 mg-30 mg Oral - take 2 tablet by ORAL route every 8-10 hours; 20 tablet; Refills: 0, Product cp Selection Permitted Addendum: 08/09/2021 09:21 Co-signature as Attending Physician, Jad Preston MD I agree with the assessment and c prescott plan of care. Signatures: Dispatcher [employer] EDMS Jad Preston MD MD cha Hall, Patricia, RN RN ph Jad Samuel, STEVEN PA cp Amy Cowart RN RN tw2 Katelyn Garza RN RN vg1 Xiomy Cormier RN RN ld1 Corrections: (The following items were deleted from the chart) 08/06 17:23 12:33 Knee Right Wo Cont ordered. EDNM EDNM
[2021-08-06 19:09] VITALS: TEMP 97.8
[2021-08-06 19:14] VITALS: O2SAT 99
[2021-08-06 19:15] VITALS: BP 143/79
== END 2021-08-06 19:03 | disposition home or self-care (01) ==
LOC: ER 10:12
DX: S76.112A Strain of left quadriceps muscle, fascia and tendon, initial encounter (principal); W10.8XXA Fall (on) (from) other stairs and steps, initial encounter
CPT/HCPCS: 73700; 73562; 73610; 73721; 99284; J2405

== ENCOUNTER 2021-08-11 16:50 | Emergency (ER) | payer OTHER ==
--- OUTSIDE RECORDS SUMMARY | 2021-08-11 16:55 | XMS REPORT | Continuity of Care Document ---
:1980 Author Organization [facility] t Address [address] [place] [address] Care Team Providers Name Role Phone PCP, DOES NOT HAVE A Primary Care Physician Unavailable Khaliad Morelos RN Attending Clinician Unavailable Stevan Dc NP Attending Clinician Stevan DC Attending Clinician Unavailable MARTA AMAYA Attending Clinician Unavailable Luciano Calle MD Attending Clinician Luciano CALLE Attending Clinician Unavailable Sabino Guerrero MD Attending Clinician Jameel GARCÍA Attending [...] Policy Number Effective Date Expiration Date S [facility] [id number] 2020 00:00:00 AET[employer] O [id number] 2016 00:00:00 Problems Condition Condition Condition Status [...] 9-10 [facility] - 00:00: Medical 00 [place] Fatty Fatty Disease Active [facility] 00 [place] Abnormal Abnormal Disease [facility] - enzymes enzymes 00:00: Medical 00 [place] Abnormal Abnormal Disease [facility] - diagnostic diagnostic 00:00: Al dical imaging imaging 00 Center Acute Acute Disease Active [facility] respirator respirator 8-12 it y of y failure y failure 00:00: Luis s due to due to 00 Medical COVID-19 COVID-19 Branch No known No known Disease Unive rs active active ity of problems problems [facility] Allergies, Adverse Reactions, Alerts Allergy Allergy Status Severity Reaction(s) Onset Inactive Treating Comm ents Source Name Type Date Date Clinician NO KNOWN Allergy Active [facility] ALLERGIE [facility] NO KNOWN Drug Active [facility] ALLERGIE Class ity of S [facility] Family History Family Member Diagnosis Comments Start Date Stop Date Source Natural father Heart disease [facility] Natural mother Anxiety disorder [facility] Natural mother COPD [facility] Natural mother Depression [facility] Natural mother Hypertension [facility] Social History Social Habit Start Date Stop Date Quantity Comments Source Exposure to Yes University of SARS-CoV-2 [facility] (event) Branch History SDOH [facility] Alcohol Std Medical Cente r Drinks History SDOH [facility] - Alcohol Binge Medical Jhonny ter History SDOH [facility] - Alcohol Comment Medical C enter Alcohol intake 2021-03-13 2021-03-13 Lifetime [facility]k - 00:00:00 00:00:00 non-drinker Medical Cente r (finding) Tobacco use and 2021-02-14 2021-02-14 Never used SETH Garsia kes - exposure 00:00:00 00:00:00 Medical Center History SDOH 2021-02-14 2021-02-[address] [facility] - Alcohol Frequency 00:00:00 00:00:00 [facility] Sex Assigned At [birth year] SETH Reyes - 00:00:00 00:00:00 [facility] Smoking Status Start Date Stop Date Source Never smoker SETH Tse - M [facility] Unknown if ever smoked [facility] Medical [place] Medications Ordered Filled Start Stop Current Ordering Indication Dosage Frequency Signature Comments Components Source Medication Medication Date Date Medication? Clinician (SIG) Name Name multivitami 2020-06 Yes Take [facility]iron/foli 0-05 mouth. [facility] - c acid 12:13: Medical ([address] COMPLETE ORAL) multivitami 2020-06 Yes Take by [facility]/iron/foli 0-05 [facility]. [facility] - c acid 12:13: Medical ([address] COMPLETE ORAL) buPROPion 2020-06 Yes 150mg [...] at 1700, Until Discontinu ed, Routine traMADoL No 50mg 50 mg, Univer s (ULTRAM) [...] [place] 40 [place]Eq 00 :00 dose, [facility] Medical 01/18/21 at Branch 1330, Routine dexamethaso 2020- No 6mg 6 mg, IV U nivers ne 01-18 Push, ity of (DECADRON 14:45: 13:46 ONCE, 1 [place] PHOSPHATE[place] 00 :00 dose, [facility] Medi milka injection 6 01/18/21 at Br anch mg 0945, STAT iopamidol 2020- No [id number] 120mL 120 mL, Univers (ISOVUE 01-18 Intravenou ity o f 370-500 mL) 14:30: 13:04 s, ONCE, 1 [place] injection 00 :00 dose, [facility] Medic al 120 mL 01/18/21 at Branch 0930, Routine remdesivir 2020- No 200mg 200 mg, IV Univers 200 mg in 01-18 Infusion, ity of NaCl 0.9% 13:45: 15:04 ONCE, 1 [place] (NS[place] 100 mL 00 :00 dose, [facility] Med ical infusion 01/18/21 at [facility] h 0845, Administer over 60 Minutes, 100 mL
Is the patient mechanical ly ventilated ? NO
Is the patient requiring supplement al oxygen? YES KCL 2020- No 40meq 40 mEq, Univers (KLOR-CON 01-18 Oral, ity of M20) tablet 13:30: 13:46 ONCE, 1 [place] 40 mEq 00 :00 dose, [facility] Medical 01/18/21 at Branch 0830, Routine ketorolac 2020- No 30mg 30 mg, Unive rs (TORADOL) 01-18 Slow IV ity of injection 12:30: 11:43 Push, [place] 30 mg 00 :00 ONCE, 1 Medical dose, [place] Branch 01/18/21 at 0730, Routine
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 Restricted medication : JOHN GUERRERO ondansetron 2020- No 4mg 4 mg, Slow Univers (ZOFRAN [...] Until [place] 01/18/21 at 1549, Routine acetaminoph 2020- No 1000mg 1,000 mg, Univers en 01-13 Oral, ity of (TYLENOL) 09:15: 08:21 ONCE, 1 [place] tablet 00 :00 dose, Sat Medical 1,000 mg 01/13/21 at Branch 0415, DAE benzonatate No 100mg 100 mg, U nivers (TESSALON 01-13 Oral, ity of PERLES) 09:00: 08:21 ONCE, 1 [place] capsule 100 00 :00 dose, Sat Med ical mg 01/13/21 at Branch 0400, Routine ibuprofen Yes [id number] 600mg Take 1 Univers 600 mg 8-07 tablet by ity of tablet 00:00: mouth [place] 00 every 6 Medical (six) Branch hours as needed for Pain (scale 4-6). benzonatate 0 Yes [id number] 100mg Take 1 Univers 100 mg 8-07 capsule by ity of capsule 00:00: mouth 3 [place] 00 (three) Medical times Branch daily as needed for Cough. ondansetron Yes [id number] 4mg Take 1 Univers (ZOFRAN 8-07 tablet by ity of ODT) 4 mg 00:00: mouth [place] disintegrat 00 every 8 Medic al ing tablet (eight) Branch hours as needed for Nausea and Vomiting (N/V). albuterol Yes [id number] 2{puff} Inhale 2 Univers 90 8-07 Puffs ity of mcg/actuati 00:00: every 4 [place] as on inhaler 00 (four) Medical hours as Branch needed for Wheezing or Shortness of Breath. ibuprofen Yes [id number] 600mg Take 1 Univers 600 mg 8-07 tablet by ity of tablet 00:00: mouth [place] 00 every 6 Medical (six) Branch hours as needed for Pain (scale 4-6). benzonatate Yes [id number] 100mg Take 1 Univers 100 mg 8-07 capsule by ity of capsule 00:00: mouth 3 [place] 00 (three) Medical times Branch daily as needed for Cough. ondansetron Yes [id number] 4mg Take 1 Univers (ZOFRAN 8-07 tablet by ity of ODT) 4 mg 00:00: mouth [place] disintegrat 00 every 8 Medic al ing tablet (eight) Branch hours as needed for Nausea and Vomiting (N/V). albuterol Yes [id number] 2{puff} Inhale 2 Univers 90 8-07 Puffs ity of mcg/actuati 00:00: every 4 [place] as on inhaler 00 (four) Medical hours as Branch needed for Wheezing or Shortness of Breath. ketorolac 2019- No 30mg 30 mg, Unive rs (TORADOL) 02-26 Slow IV ity of injection 13:00: 12:14 Push, [place] 30 mg 00 :00 ONCE, 1 Medical dose, [place] Branch 02/27/20 at 0800, Routine
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 Restricted medication : JOHN GUERRERO ondansetron [...] 0645, 120 mL Routine lisinopriL 2020-0 Yes [id number] 10mg Take 1 U nivers 10 mg 9-20 tablet by ity of tablet 00:00: mouth at [place] 00 bedtime. Medical Branch traMADoL 2020-0 Yes [id number] 50mg Take 1 Univers (ULTRAM) 50 9-20 tablet by ity of mg tablet 00:00: mouth [place] 00 every 6 Medical (six) Branch hours as needed for Pain (scale 7-10). Indication s: acute pain ondansetron 2020-0 Yes [id number] 4mg Take 1 Univers (ZOFRAN) 4 9-20 tablet by ity of mg tablet 00:00: mouth [place] 00 every 8 Medical (eight) Branch hours as needed for Nausea and Vomiting (N/V). dicyclomine 2020-0 Yes [id number] 20mg Take 1 Univers 20 mg 9-20 tablet by ity of tablet 00:00: mouth [place] 00 every 6 Medical (six) Branch hours as needed for Abdominal pain. lisinopriL 2020-0 Yes [id number] 10mg Take 1 U nivers 10 mg 9-20 tablet by ity of tablet 00:00: mouth at [place] 00 bedtime. Medical Branch traMADoL 2020-0 Yes [id number] 50mg Take 1 Univers (ULTRAM) 50 9-20 tablet by ity of mg tablet 00:00: mouth [place] 00 every 6 Medical (six) Branch hours as needed for Pain (scale 7-10). Indication s: acute pain ondansetron 2020-0 Yes [id number] 4mg Take 1 Univers (ZOFRAN) 4 9-20 tablet by ity of mg tablet 00:00: mouth [place] 00 every 8 Medical (eight) Branch hours as needed for Nausea and Vomiting (N/V). dicyclomine 2020-0 Yes [id number] 20mg Take 1 Univers 20 mg 9-20 tablet by ity of tablet 00:00: mouth [place] 00 every 6 Medical (six) Branch hours as needed for Abdominal pain. lisinopriL 2020-0 Yes [id number] 10mg Take 1 U nivers 10 mg 9-20 tablet by ity of tablet 00:00: mouth at [place] 00 bedtime. Medical Branch traMADoL 2020-0 Yes [id number] 50mg Take 1 Univers (ULTRAM) 50 9-20 tablet by ity of mg tablet 00:00: mouth [place] 00 every 6 Medical (six) Branch hours as needed for Pain (scale 7-10). Indication s: acute pain ondansetron 2020-0 Yes [id number] 4mg Take 1 Univers (ZOFRAN) 4 9-20 tablet by ity of mg tablet 00:00: mouth [place] 00 every 8 Medical (eight) Branch hours as needed for Nausea and Vomiting (N/V). dicyclomine 2020-0 Yes [id number] 20mg Take 1 Univers 20 mg 9-20 tablet by ity of tablet 00:00: mouth [place] 00 every 6 Medical (six) Branch hours as needed for Abdominal pain. lisinopriL 2020-0 Yes [id number] 10mg Take 1 U nivers 10 mg 9-20 tablet by ity of tablet 00:00: mouth at [place] 00 bedtime. Medical Branch traMADoL 2020-0 Yes [id number] 50mg Take 1 Univers (ULTRAM) 50 9-20 tablet by ity of mg tablet 00:00: mouth [place] 00 every 6 Medical (six) Branch hours as needed for Pain (scale 7-10). Indication s: acute pain ondansetron 2020-0 Yes [id number] 4mg Take 1 Univers (ZOFRAN) 4 9-20 tablet by ity of mg tablet 00:00: mouth [place] 00 every 8 Medical (eight) Branch hours as needed for Nausea and Vomiting (N/V). dicyclomine 2020-0 Yes [id number] 20mg Take 1 Univers 20 mg 9-20 tablet by ity of tablet 00:00: mouth [place] 00 every 6 Medical (six) Branch hours as needed for Abdominal pain. lisinopriL 2020-0 Yes [id number] 10mg Take 1 U nivers 10 mg 9-20 tablet by ity of tablet 00:00: mouth at [place] 00 bedtime. Medical Branch traMADoL 2020-0 Yes [id number] 50mg Take 1 Univers (ULTRAM) 50 9-20 tablet by ity of mg tablet 00:00: mouth [place] 00 every 6 Medical (six) Branch hours as needed for Pain (scale 7-10). Indication s: acute pain ondansetron 2020-0 Yes [id number] 4mg Take 1 Univers (ZOFRAN) 4 9-20 tablet by ity of mg tablet 00:00: mouth [place] 00 every 8 Medical (eight) Branch hours as needed for Nausea and Vomiting (N/V). dicyclomine 2020-0 Yes [id number] 20mg Take 1 Univers 20 mg 9-20 tablet by ity of tablet 00:00: mouth [place] 00 every 6 Medical (six) Branch hours as needed for Abdominal pain. lisinopriL 2020-0 Yes [id number] 10mg Take 1 U nivers 10 mg 9-20 tablet by ity of tablet 00:00: mouth at [place] 00 bedtime. Medical Branch traMADoL 2020-0 Yes [id number] 50mg Take 1 Univers (ULTRAM) 50 9-20 tablet by ity of mg tablet 00:00: mouth [place] 00 every 6 Medical (six) Branch hours as needed for Pain (scale 7-10). Indication s: acute pain ondansetron 2020-0 Yes [id number] 4mg Take 1 Univers (ZOFRAN) 4 9-20 tablet by ity of mg tablet 00:00: mouth [place] 00 every 8 Medical (eight) Branch hours as needed for Nausea and Vomiting (N/V). dicyclomine 2020-0 Yes [id number] 20mg Take 1 Univers 20 mg 9-20 tablet by ity of tablet 00:00: mouth [place] 00 every 6 Medical (six) Branch hours as needed for Abdominal pain. lisinopriL 2020-0 Yes [id number] 10mg Take 1 U nivers 10 mg 9-20 tablet by ity of tablet 00:00: mouth at [place] 00 bedtime. Medical Branch traMADoL 2020-0 Yes [id number] 50mg Take 1 Univers (ULTRAM) 50 9-20 tablet by ity of mg tablet 00:00: mouth [place] 00 every 6 Medical (six) Branch hours as needed for Pain (scale 7-10). Indication s: acute pain ondansetron 2020-0 Yes [id number] 4mg Take 1 Univers (ZOFRAN) 4 9-20 tablet by ity of mg tablet 00:00: mouth [place] 00 every 8 Medical (eight) Branch hours as needed for Nausea and Vomiting (N/V). dicyclomine 2020-0 Yes [id number] 20mg Take 1 Univers 20 mg 9-20 tablet by ity of tablet 00:00: mouth [place] 00 every 6 Medical (six) Branch hours as needed for Abdominal pain. lisinopriL 2020-0 Yes [id number] 10mg Take 1 U nivers 10 mg 9-20 tablet by ity of tablet 00:00: mouth at [place] 00 bedtime. Medical Branch traMADoL 2020-0 Yes [id number] 50mg Take 1 Univers (ULTRAM) 50 9-20 tablet by ity of mg tablet 00:00: mouth [place] 00 every 6 Medical (six) Branch hours as needed for Pain (scale 7-10). Indication s: acute pain ondansetron 2019-0 Yes [id number] 4mg Take 1 Univers (ZOFRAN) 4 9-20 tablet by ity of mg tablet 00:00: mouth [place] 00 every 8 Medical (eight) Branch hours as needed for Nausea and Vomiting (N/V). dicyclomine 2019-0 Yes [id number] 20mg Take 1 Univers 20 mg 9-20 tablet by ity of tablet 00:00: mouth [place] 00 every 6 Medical (six) Branch hours as needed for Abdominal pain. ketorolac 2019-0 2020- No 30mg 30 mg, Unive rs (TORADOL) 10-04 04-29 Slow IV ity of injection 05:00: 04:59 Push, Q6H, [place] 30 mg 00 :00 4 doses, Medical First dose Branch on Fri10/05/19 at 0000, Last dose on Fri10/05/19 at 1800, Routine
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 Restricted medication : SUZIE CORTEZ NaCl 0.9% 2019-0 2020- No 1000mL at 999 Uni vers (NS) bolus 10-04 04-28 mL/hr, ity of infusion 04:45: 04:30 1,000 mL, Yas[place] as 1,000 mL 00 :00 IV Medical Infusion, Branch ONCE, 1 dose, Fri10/04/19 at 2345, STAT ibuprofen 2019-0 Yes [id number] 800mg Take 1 U nivers 800 mg 4-27 tablet by ity of tablet 00:00: mouth [place] 00 every 8 Medical (eight) Branch hours. methocarbam 2020-0 Yes [id number] 500mg Take 1 Univers ol 500 mg 4-27 tablet by ity o f tablet 00:00: mouth (four) Medical times Branch daily. ibuprofen 2020-0 Yes [id number] 800mg Take 1 U nivers 800 mg 4-27 tablet by ity of tablet 00:00: mouth 00 every 8 Medical (eight) Branch hours. methocarbam 2020-0 Yes [id number] 500mg Take 1 Univers ol 500 mg 4-27 tablet by ity o f tablet 00:00: mouth (four) Medical times Branch daily. ibuprofen 2020-0 Yes [id number] 800mg Take 1 U nivers 800 mg 4-27 tablet by ity of tablet 00:00: mouth 00 every 8 Medical (eight) Branch hours. methocarbam 2020-0 Yes [id number] 500mg Take 1 Univers ol 500 mg 4-27 tablet by ity o f tablet 00:00: mouth (four) Medical times Branch daily. ibuprofen 2020-0 Yes [id number] 800mg Take 1 U nivers 800 mg 4-27 tablet by ity of tablet 00:00: mouth 00 every 8 Medical (eight) Branch hours. methocarbam 2020-0 Yes [id number] 500mg Take 1 Univers ol 500 mg 4-27 tablet by ity o f tablet 00:00: mouth (four) Medical times Branch daily. ibuprofen 2020-0 Yes [id number] 800mg Take 1 U nivers 800 mg 4-27 tablet by ity of tablet 00:00: mouth 00 every 8 Medical (eight) Branch hours. methocarbam 2020-0 Yes [id number] 500mg Take 1 Univers ol 500 mg 4-27 tablet by ity o f tablet 00:00: mouth (four) Medical times Branch daily. ibuprofen 2020-0 Yes [id number] 800mg Take 1 U nivers 800 mg 4-27 tablet by ity of tablet 00:00: mouth 00 every 8 Medical (eight) Branch hours. methocarbam 2020-0 Yes [id number] 500mg Take 1 Univers ol 500 mg 4-27 tablet by ity o f tablet 00:00: mouth (four) Medical times Branch daily. methocarbam 2020-0 Yes [id number] 500mg Take 1 Univers ol 500 mg 4-27 tablet by ity o f tablet 00:00: mouth 00 (four) Medical times Branch daily. methocarbam 2020-0 Yes [id number] 500mg Take 1 Univers ol 500 mg 4-27 tablet by ity o f tablet 00:00: mouth 4 00 (four) Medical times Branch daily. ibuprofen 2019-0 Yes [id number] 800mg Take 1 U nivers 800 mg 4-27 tablet by ity of tablet 00:00: mouth 00 every 8 Medical (eight) Branch hours. methocarbam 2020-0 Yes [id number] 500mg Take 1 Univers ol 500 mg 4-27 tablet by ity o f tablet 00:00: mouth 4 00 (four) Medical times Branch daily. ibuprofen 2019-0 2020- No [id number] 800mg Take 1 Univers 800 mg 4-27 08-07 tablet by ity of tablet 00:00: 00:00 mouth [place] 00 :00 every 8 Medical (eight) Branch hours. Vital Signs Vital Name Observation Time Observation Value Comments Source HEIGHT 2021-02-14 12:52:00 180.3 cm WEIGHT 2021-02-14 12:52:00 109.77 kg HEIGHT 2021-02-14 12:52:00 180.3 cm WEIGHT 2021-02-14 12:52:00 109.77 kg Systolic blood 2021-01-19 02:00:00 139 mm[facility]Hg[facility] 2021-01-19 02:00:00 83 mm[Hg] Unive [facility] Heart rate 2021-01-19 02:00:00 85 /min [facility] Oxygen saturation in 2021-01-19 02:00:00 99 /min [facility] Arterial blood by [facility] Pulse oximetry Branch Respiratory rate 2021-01-19 01:00:00 20 /min [facility] Body temperature 2021-01-18 11:04:00 37.78 Jing [facility] Body height 2021-01-18 11:04:[address] [facility] Body weight 2021-01-18 11:04:[address] [facility] BMI 2021-01-18 11:04:00 34.87 kg/m2 [facility] Systolic blood 2021-01-13 08:00:00 161 mm[Hg] Univer sity of pressure [place] [facility] Diastolic blood 2021-01-13 08:00:00 98 mm[Hg] Unive rsity of pressure [place] [facility] Heart rate 2021-01-13 08:00:00 80 /min [facility]i ty [facility] [place] [facility] Respiratory rate 2021-01-13 08:00:00 20 /min Univ ersity of [place] [facility] Oxygen saturation in 2021-01-13 08:00:00 99 /min University of Arterial blood by [place] [facility] Pulse oximetry Branch Body temperature 2021-01-13 03:37:00 37.44 Jing Univ ersity of [place] [facility] Body height 2021-01-13 03:37:00 180.3 cm [facility] [place] [facility] Body weight 2021-01-13 03:37:00 113.399 kg [facility] [place] [facility] BMI 2021-01-13 03:37:00 34.87 kg/m2 [facility] [place] [facility] Systolic blood 2021-01-12 03:13:00 167 mm[Hg] Univer sity of pressure [place] [facility] Diastolic blood 2021-01-12 03:13:00 115 mm[Hg] Unive rsity of pressure [place] [facility] Heart rate 2021-01-12 03:13:00 101 /min [facility] [place] [facility] Body temperature 2021-01-12 03:13:00 37.94 Jing Univ ersity of [place] [facility] Respiratory rate 2021-01-12 03:13:00 20 /min Univ ersity [facility] [place] [facility] Body height 2021-01-12 03:13:00 180.3 cm [facility]i [facility] [place] [facility] Body weight 2021-01-12 03:13:00 113.399 kg [facility] [place] [facility] BMI 2021-01-12 03:13:00 34.87 kg/m2 [facility] [place] [facility] Oxygen saturation in 2021-01-12 03:13:00 97 /min University of Arterial blood by [place] [facility] milka Pulse oximetry Branch Systolic blood 2020-11-22 15:44:00 152 mm[Hg] Univer sity of pressure [place] [facility] Diastolic blood 2020-11-22 15:44:00 94 mm[Hg] Unive rsity of pressure [place] [facility] Heart rate 2020-11-22 15:44:00 78 /min [facility] [place] [facility] Body temperature 2020-11-22 15:44:00 36.5 Jing [facility] [place] [facility] Respiratory rate 2020-11-22 15:44:00 18 /min Univ ers[facility] [place] [facility] Body height 2020-11-22 15:44:00 180.3 cm [facility] [place] [facility] Body weight 2020-11-22 15:44:00 117.935 kg [facility] [place] [facility] BMI 2020-11-22 15:44:00 36.26 kg/m2 [facility] [place] [facility] Oxygen saturation in 2020-11-22 15:44:00 98 /min University of Arterial blood by [facility] Pulse oximetry Branch Systolic blood 2020-02-27 11:00:00 160 mm[Hg] Univer sity of pressure [place] [facility] Diastolic blood 2020-02-27 11:00:00 106 mm[Hg] Unive rsity of pressure [place] [facility] Heart rate 2020-02-27 11:00:00 75 /min [facility] [place] [facility] Respiratory rate 2020-02-27 11:00:00 20 /min Univ ersity [facility] [place] [facility] Oxygen saturation in 2020-02-27 11:00:00 96 /min University of Arterial blood by [facility] Pulse oximetry Branch Body temperature 2020-02-27 10:32:00 36.22 Jing Univ [facility] [place] [facility] Body height 2020-02-27 10:32:00 182.9 cm [facility] [place] [facility] Body weight 2020-02-27 10:32:00 124.739 kg [facility] [place] [facility] BMI 2020-02-27 10:32:00 37.30 kg/m2 [facility] [place] [facility] Systolic blood 2019-10-05 04:00:00 163 mm[Hg] Univer sity of pressure [place] [facility] Diastolic blood 2019-10-05 04:00:00 99 mm[Hg] Unive rsity of pressure [place] [facility] Heart rate 2019-10-05 04:00:00 97 /min [facility] [place] [facility] Oxygen saturation in 2019-10-05 04:00:00 96 /min University of Arterial blood by [facility] Pulse oximetry Branch Body temperature 2019-10-05 03:24:00 36.89 Jing [facility] Respiratory rate 2019-10-05 03:24:00 17 /min [facility] Body height 2019-10-05 03:24:[address] [facility] Body weight 2019-10-05 03:24:[address] [facility] BMI 2019-10-05 03:24:00 34.87 kg/m2 [facility] Body height 2021-03-13 11:17:00 180.3 cm [facility] Body weight 2021-03-13 11:17:00 108.863 kg [facility] BMI 2021-03-13 11:17:00 33.47 kg/m2 [facility] Systolic blood 2021-02-14 12:52:00 139 mm[Hg] [facility] Diastolic blood 2021-02-14 12:52:00 93 mm[Hg] [facility] Heart rate 2021-02-14 12:52:00 83 /min [facility] Body temperature 2021-02-14 12:52:00 36.67 Jing [facility] Oxygen saturation in 2021-02-14 12:52:00 97 /min [facility] Arterial blood by Medical Ce nter Pulse oximetry Procedures Procedure Date / Time Performing Clinician Source Performed CMV PCR, QUANTITATIVE 2021-02-14 14:55:00 Desmond Calle [facility] BASIC METABOLIC PANEL 2021-02-14 14:55:[address] [facility] () [facility] HEPATIC FUNCTION PANEL 2021-02-14 14:55:00 Desmond Calle [facility] CBC W/PLT COUNT & AUTO 2021-02-14 14:55:00 Desmond Calle [facility] PROTHROMBIN TIME/INR 2021-02-14 14:55:00 Desmond Calle [facility] HEPATITIS B CORE 2021-02-14 14:55:00 Desmond Calle [facility] TOTAL [facility] HEPATITIS B SURFACE 2021-02-14 14:55:00 Desmond Calle [facility] S t [facility] ANTIBODY [facility] HEPATITIS A ANTIBODY, 2021-02-14 14:55:00 Desmond Calle [facility] IGG [facility] FERRITIN 2021-02-14 14:55:00 Desmond Calle [facility] [id number], 2021-02-14 14:55:00 Desmond Calle [facility] CBC W/PLT COUNT & AUTO 2021-02-14 14:55:[address] [facility] HEPATITIS B SURFACE 2021-01-18 17:54:00 Tariq Jorgensen [facility] ANTIGEN [facility] HCV ANTIBODY 2021-01-18 17:54:00 Jameel [facility] HEPATITIS A VIRUS 2021-01-18 17:54:00 Jameel [facility] ANTIBODY IGM [facility] HEPATITIS B CORE 2021-01-18 17:54:00 Jameel [facility] ANTIBODY IGM Medical Branch PHOSPHORUS 2021-01-18 17:53:00 Jameel [facility] LACTATE DEHYDROGENASE 2021-01-18 17:53:00 Tariq Jorgensen [facility] sity [facility] CREATINE KINASE 2021-01-18 17:53:00 Jameel [facility] MAGNESIUM 2021-01-18 17:53:00 Jameel [facility] FERRITIN SERUM 2021-01-18 17:53:00 Jameel [facility] CT ABDOMEN PELVIS W 2021-01-18 13:18:30 uSzie Cortez [facility] CONTRAST [facility] Branch CT CHEST PULMONARY 2021-01-18 13:18:30 John Guerrero [facility] ANGIOGRAM Medical Branch COMP. METABOLIC PANEL 2021-01-18 11:42:00 John Guerrero [facility] ([id number]) Medical Branch CBC WITH DIFF 2021-01-18 11:42:00 John Guerrero [facility] D-DIMER 2021-01-18 11:42:00 [facility]ro [facility] [facility] CONSENT/REFUSAL FOR 2021-01-18 10:43:14 Doctor Unassigned, No [facility] [place] [facility] NOTICE OF PRIVACY 2021-01-13 03:12:35 Doctor Unassigned, No Univ ersity [facility] CONSENT/REFUSAL FOR 2021-01-13 03:12:13 Doctor Unassigned, No [facility] [place] [facility] NOTICE OF PRIVACY 2021-01-12 03:00:22 Doctor Unassigned, No [facility] [place] CONSENT/REFUSAL FOR 2021-01-12 03:00:00 Doctor Unassigned, No [facility] [place] [facility] TREAT[facility] [place] ASSIGNMENT OF BENEFITS 2020-11-22 15:58:53 Doctor Unassigned, No [facility] Branch CT ABDOMEN PELVIS W 2020-02-27 11:32:43 John Guerrero [facility] CONTRAST Medical Branch URINALYSIS 2020-02-27 11:01:00 John Guerrero [facility] LIPASE 2020-02-27 10:39:00 John Guerrero [facility] COMP. METABOLIC PANEL 2020-02-27 10:39:00 John Guerrero [facility] ([id number]) Medical [place] CBC WITH DIFF 2020-02-27 10:39:00 John Guerrero [facility] NOTICE OF PRIVACY 2020-02-27 10:23:10 Doctor Unassigned, No Univ ersity [facility] CONSENT/REFUSAL FOR 2020-02-27 10:20:58 Doctor Unassigned, No [facility] [place] DIAG[facility] TREAT[facility] XR CHEST 1 VW 2019-10-05 04:10:53 Suzie Cortez [facility] XR KUB 2019-10-05 03:46:03 Diego Suzie [facility] CREATINE KINASE 2019-10-05 03:36:[address] [facility] LIPASE 2019-10-05 03:36:[address] [facility] HEPATIC FUNCTION PANEL 2019-10-05 03:36:00 Suzie Cortez [facility] ([id number]) (ALB,T.PRO,BILI [facility] T,BU/BC,ALT,AST,ALK PHOS) BASIC METABOLIC PANEL 2019-10-05 03:36:00 Diego Suzie [facility] (NA, K, CL, CO2, Medical Branch GLUCOSE, BUN, CREATININE, CA) CBC WITH DIFFERENTIAL 2019-10-05 03:36:00 Diego Suzie [facility] PROTHROMBIN TIME / INR 2019-10-05 03:36:00 Suzie Cortez [facility] ACTIVATED PARTIAL 2019-10-05 03:36:00 Diego [facility] THRMPLAS [facility] URINALYSIS 2019-10-05 03:36:[address] [facility] Plan of Care Planned Activity Planned Date Details Comments Source Future Scheduled 2021-06-[address] [facility] - Test 00:00:00 (12+) [code = [facility] DEPRESSION SCREENING (12+)] Future Scheduled 2021-06-[address] [facility] - Test 00:00:00 (12+) [code = [facility] DEPRESSION SCREENING (12+)] Future Scheduled 2021-02-[address] [facility] - Test 00:00:00 (#1) [code = [facility] INFLUENZA VACCINE (#1)] Future Scheduled 2021-02-[address] [facility] - Test 00:00:00 (#1) [code = [facility] INFLUENZA VACCINE (#1)] Future Scheduled [address] [facility] 00:00:00 (procedure) [code = [facility] [id number]] Future Scheduled [address] [facility] 00:00:00 (procedure) [code = [facility] [id number]] Future Scheduled 2001 DTAP/TDAP/TD VACCINES CH I [...] Type Clinicians Facility Department ID 2021-04-09 Emergency [facility] [id number] Univers 14:58:14 ity [facility] 2021-04-09 Emergency [facility] [id number] Univers [facility]48[facility]09 Emergency [facility] [id number] Univers 13:34:09 [facility] 2021-04-06 Emergency [facility] [id number] Univers 18:28:05 [facility] 2021-03-23 2021-03-23 Telephone [facility] [id number] 00:[facility] 00:00:00 Lizbeth samuel Khalida [facility] 2021-03-13 2021-03-13 Video - Nael [facility] [id number] 11:15:58 15:05:38 Telemedici Leeanne Gonzalez [facility] 2021-03-13 2021-03-[address] [facility] [id number] SLE 11:15:58 15:05:38 LEEANNE 2021-02-22 2021-02-[address] [facility] [id number] SLEH 00:00:00 00:00:00 PRASUN 2021-02-15 2021-02-15 Documentat Jethro [facility] [id number] [facility] 00[facility] [facility] 2021-02-14 2021-02-14 Office RUTH Calle [facility] [id number] 10:33:30 11:33:30 Visit [facility] Luciano [facility] 2021-02-14 2021-02-14 Outpatient [facility] SLE [id number] SLE 00:00:00 00:00:00 [facility] 2021-01-18 2021-01-18 [facility] John Guerrero Sabino [facility] 1.2.840. [id number] Univers 06:07:00 21:56:00 Encounter Tariq Jorgensen [id number] ity of [place]una[place] Shaffer 4.2.7.2.686 [facility] [id number] [facility] 084 Branch 2021-01-12 2021-01-13 Emergency Mark Foster [facility] [id number] Univers 22:40:00 03:32:00 Brissa Vines 350.1.13.10 i ty of [place] 4.2.7.2.686 [facility] [id number] [facility] 084 Branch 2021-01-11 2021-01-12 Emergency [facility] [id number] Univers 22:14:00 00:50:00 Mohinder 350.1.13.10 i ty of [place] 4.2.7.2.686 [facility] [id number] [facility] 084 Branch 2021-01-11 2021-01-11 Orders Doctor RUCKER 1.2.840.114 [id number] Univers 00:00:00 00:00:00 Only Unassigned, GIBRAN 350.1.13.10 ity of [place] [facility] 4.2.7.2.686 Yasir [id number] [facility] 009 Branch 2020-11-22 2020-11-22 [facility] [id number] Univers 10:36:13 11:06:13 Visit Raymundo Vines 350.1.13.10 [place] [id number] [facility] 085 [facility] 2020-11-22 2020-11-22 Outpatient R RAYMUNDO BOLOM [facility] [id number] Univers 10:30:00 10:30:00 RAYMUNDO BLOOM [id number] ity of [facility] 2020-11-22 2020-11-22 Outpatient R DESHAUN BLOOMNDDelaney [facility] [id number] Univers 10:30:00 10:30:00 RAYMUNDO BLOOM [facility] 2020-11-22 2020-11-22 Orders Doctor ALKA 1.2.840.114 [id number] Univers 00:00:00 00:00:00 Only Unassigned, GIBRAN 350.1.13.10 [facility] 4.2.7.2.686 Yasir as [id number] [facility] 009 Branch 2020-02-27 2020-02-27 [facility] [id number] Univers 05:27:00 07:27:00 John Sabino Mohinder 350.1.13.10 [place] [id number] [place] [address] Branch 2019-10-04 2019-10-04 [facility] [id number] Univers 22:25:41 23:37:00 SUZIE ity [facility] 2019-10-04 2019-10-04 [facility] [id number] Univers 22:25:41 23:37:00 Suzie Mohinder 350.1.13.10 i [place] [id number] [address] Results Test Description Test Time Test Comments Results Result Comments Source HEPATITIS B CORE ANTIBODY, TOTAL 2021-02-15 15:44:00 Test Item Value Reference Range Interpretation Comme nts HEPATITIS B CORE TOTAL ANTIBODY (GAVIN) (test code = Nonreactive Nonreactive 497) Tools Administrator ID - FERNANDO FCMV PCR, [id number] 13:55:00 Test Item Value Reference Range Interpretation [...] and its performance characteristics determined by the [facility] Path ology Department, Section of Molecular Pathology. It has not been cleared or approved by the U.S. Food and Drug Administration (FDA), since FDA approval is not required for clinical use of the test. Validation was done as required by The Clinical Laboratory Improvement Amendments of 1988.HEPATITIS B SURFACE [id number] 17:28:00 Test Item Value Reference Range Interpretation Comments HEPATITIS B SURFACE ANTIBODY < mIU/mL <8.0 (GAVIN) (test code = 647) Tools Administrator ID - CDPHEPATITIS A ANTIBODY, [id number] 17:26:00 Test Item Value Reference Range Interpretation Comments HEPATITIS A IGG ANTIBODY (BEAKER) Nonreactive Nonreactive (test code = 2797) Tools Administrator ID - [id number] 16:28:00 Test Item Value Reference Range Interpretation Comments ALPHA-1 ANTITRYPSIN (BEAKER) 141.30 mg/dL 90.00-200.00 (test code = 502) Tools Administrator ID - [id number] 16:07:00 Test Item Value Reference Range Interpretation Comments FERRITIN (BEAKER) (test code = 238.52 ng/mL 5.00-275.00 361) Tools Administrator ID - PIAYA LBASIC METABOLIC [id number] 15:46:00 Test Item Value Reference Range Interpretation [...] S NOT APPLICABLE FOR DIALYSIS PATIEN TS. Tools Administrator ID - PIAYA LHEPATIC FUNCTION [id number] 15:46:00 Test Item Value Reference Range Interpretation [...] Specimen slightly (test code = 347) hemolyzed Tools Administrator ID - PIAYA LPROTHROMBIN TIME/[id number] 15:33:00 Test Item Value Reference Range Interpretation Comments PROTIME (BEAKER) 12.0 seconds 11.9-14.2 (test code = 759) INR (BEAKER) (test 0.90 See_Comment [Automat ed message] code = 370) The system [employer] generated this result transmitted ref erence range: [...] PERCENT (BEAKER) (test code = 2801) HCV [id number] 23:07:07 Test Item Value Reference Range Interpretation Comments HCV Ab (test code = 93844-9) Negative HCV Semi-Quantitative (test code = 27380-6) [facility] A VIRUS ANTIBODY [id number] 22:56:04 Test Item Value Reference Range Interpretation Comments HAVM Negative Semi-Quantitative (test code = 51482-9) MARIBEL (test code = HAVAb IgM Interpretative MARIBEL) Information: Reactive greater than or equal to 1.2 Biotin has been reported to cause a negative bias, interpret results relative to patient's use of biotin. [facility] B CORE ANTIBODY [id number] 22:56:04 Test Item Value Reference Range Interpretation Comments HBCM Negative Semi-Quantitative (test code = 82725-2) MARIBEL (test code = Biotin has been reported MARIBEL) to cause a negative bias, interpret results relative to patient's use of biotin. [facility] [id number] 22:50:19 Test Item Value Reference Range Interpretation Comments HBsAg Semi-Quantitative (test code = Negative Negative 5195-3) [facility]FERRITIN [id number] 21:54:34 Test Item Value Reference Range Interpretation Comments FERRITIN (test code = 6850.0 ng/mL 18.0-464.0 H 8645585609) MARIBEL (test code = MARIBEL) Biotin has been reported to cause a negative bias, interpret results relative to patient's use of biotin. Lab Interpretation (test Abnormal code = 73282-9) [facility]CREATINE [id number] 19:13:34 Test Item Value Reference Range Interpretation Comments CK (test code = 8033349782) 2920 U/L 33-194 H Lab Interpretation (test code = Abnormal 74832-7) [facility]MAGNESIUM2021-08-12 18:37:28 Test Item Value Reference Range Interpretation Comments MAGNESIUM (test code = 8500326884) 2.2 mg/dL 1.7-2.4 Lab Interpretation (test code = Normal 39316-6) [facility]PHOSPHORUS2021-08-12 18:37:28 Test Item Value Reference Range Interpretation Comments PHOSPHORUS (test code = 1520719696) 3.3 mg/dL 2.5-5.0 Lab Interpretation (test code = Normal 77981-3) [facility] HospitalLACTATE [id number] 18:28:57 Test Item Value Reference Range Interpretation Comments LDH (test code = 2703090900) 3128 U/L 300-600 H Lab Interpretation (test code = Abnormal 65622-0) [facility]CT [facility]BD[facility] PELVIS W [id number] 15:15:23 No acute intra-abdominal or pelvic abnormality. [...] reviewed this study and agree with the abovereport.[facility] CHEST PULMONARY [id number] 13:31:27 1. No evidence of acute or [...] this study and agree with theabove report. [facility]. METABOLIC PANEL (65585)2021-01-18 12:12:28 Test Item Value Reference Range Interpretation Comments NA (test code = 131 mmol/L 135-145 L 4099479262) K (test code = 3.1 mmol/L 3.5-5.0 L 7881772922) CL (test code = 95 mmol/L 98-108 L 7330426605) CO2 TOTAL (test code = 25 mmol/L 23-31 9448588591) AGAP (test code = 2-16 5829091268) BUN (test code = 13 mg/dL 7-23 4075529345) GLUCOSE (test code = 124 mg/dL 70-110 H 2525602528) CREATININE (test code = 1.11 mg/dL 0.60-1.25 9347627700) TOTAL BILI (test code = 0.9 mg/dL 0.1-1.1 1696479738) CALCIUM (test code = 8.2 mg/dL 8.6-10.6 L 1424109567) T PROTEIN (test code = 6.9 g/dL 6.3-8.2 7050980053) ALBUMIN (test code = 3.7 g/dL 3.5-5.0 1710675284) ALK PHOS (test code = 121 U/L 34-122 5273795887) ALTv (test code = 428 U/L 5-50 H 1742-6) AST(SGOT) (test code = 638 U/L 13-40 H 4077013091) eGFR (test code = mL/min/1.73m2 4762025447) MARIBEL (test code = MARIBEL) Association of [...] tests). Lab Interpretation Abnormal (test code = 98035-9) [facility] WITH [id number] 12:08:54 Test Item Value Reference Range Interpretation Comments WBC (test code = See_Comment L [Automated 6690-2) message] The sy stem which generated this [...] (test code = 36.8 fL 38.5-51.6 L 34210-4) RDW-CV (test code = 12.2 % 12.1-15.4 788-0) PLT (test code = See_Comment L [Automated 777-3) message] The sy stem which generated this result transmitted reference range : 150 - 328 10*3/ ?L. The reference r autumn was not used to interpret this result as normal/abnormal . MPV (test code = 11.0 fL 9.8-13.0 50711-6) IPF % (test code = 6.6 % 1.2-10.7 Platelet count 4070361167) measured by fluorescence method. NRBC/100 WBC (test See_Comment [Automat ed code = 6634352525) message] The system which generated this result transmitted reference range : 0.0 - 10.0 /100 WBCs. The refer ence range was not u sed to interpret th is result as normal/abnormal . NRBC x10^3 (test code <0.01 See_Comment [Auto mated = 7355211339) message] The s ystem which generated this result transmitted reference range : 10*3/?L. The reference range was not used to interpret this result as normal/abnormal . GRAN MAT (NEUT) % 67.2 % (test code = 770-8) IMM GRAN % (test code 0.30 % = 8116584937) LYMPH % (test code = 28.1 % 736-9) MONO % (test code = 4.1 % 5905-5) EOS % (test code = 0.0 % 713-8) BASO % (test code = 0.3 % 706-2) GRAN MAT x10^3(ANC) 2.61 10*3/uL 1.99-6.95 (test code = 7817342228) IMM GRAN x10^3 (test <0.03 0.00-0.06 code = 1062631274) LYMPH x10^3 (test code 1.09 10*3/uL 1.09-3.23 = 731-0) MONO x10^3 (test code 0.16 10*3/uL 0.36-1.02 L = 742-7) EOS x10^3 (test code = <0.03 0.06-0.53 L 711-2) BASO x10^3 (test code <0.03 0.01-0.09 = 704-7) Lab Interpretation Abnormal (test code = 69098-9) [facility] HospitalD-[id number] 12:05:45 Test Item Value Reference Interpretation Comments Range D-DIMER (test code = See_Comment H [Autom ated 8033605942) message] The system which generated this result [...] diagnosis. Lab Interpretation Abnormal (test code = 30035-4) [facility] HospitalUrinalysis2020-09-20 11:28:00 Test Item Value Reference Range Interpretation Comments APPEARANCE (test code = Clear Clear 6920758017) COLOR (test code = Yellow Yellow 9097441353) PH (test code = 4.8-8.0 5502875628) SP GRAVITY (test code = 1.003-1.030 7967360736) GLU U QUAL (test code = Normal Normal 8062534620) BLOOD (test code = Negative Negative 4039723090) KETONES (test code = Negative Negative 7437294705) PROTEIN (test code = Negative Negative 2887-8) UROBILIN (test code = Normal Normal 8654672959) BILIRUBIN (test code = Negative Negative 2191753509) NITRITE (test code = Negative Negative 5926262809) LEUK DALLAS (test code = Negative Negative 0105986961) RBC/HPF (test code = See_Comment [Autom ated message] 6449416203) The system [employer] generated this result transmitted ref erence range: 0 - 3 HP F. The reference range was not used to int erpret this result as normal/abnormal . WBC/HPF (test code = See_Comment [Autom ated message] 1900735856) The system [employer] generated this result transmitted ref erence range: 0 - 5 HP F. The reference range was not used to int erpret this result as normal/abnormal . BACTERIA (test code = Few Negative A 0284416904) MUCOUS (test code = Slight Negative LPF A 5199065593) Lab Interpretation (test Abnormal code = 24805-3) [facility] Metabolic [id number] 11:19:00 Test Item Value Reference Range Interpretation Comments NA (test code = 136 mmol/L 135-145 2248333145) K (test code = 3.9 mmol/L 3.5-5 7399617534) CL (test code = 102 mmol/L 98-108 2004191581) CO2 TOTAL (test code = 25 mmol/L 23-31 5949171744) AGAP (test code = 2-16 6061020502) BUN (test code = 14 mg/dL 7-23 7491349116) GLUCOSE (test code = 120 mg/dL 70-110 H 0249796472) CREATININE (test code = 0.98 mg/dL 0.6-1.25 1333972206) TOTAL BILI (test code = 0.4 mg/dL 0.1-1.6 4437519473) CALCIUM (test code = 9.1 mg/dL 8.6-10.6 3630420774) T PROTEIN (test code = 7.2 g/dL 6.3-8.2 3315159960) ALBUMIN (test code = 4.0 g/dL 3.5-5 7356619959) ALK PHOS (test code = 75 U/L 34-122 0780348755) ALTv (test code = 37 U/L 5-50 1742-6) AST(SGOT) (test code = 25 U/L 13-40 7044965686) eGFR Calculation mL/min/1.73m2 (Non-) (test code = 6048427408) eGFR Calculation mL/min/1.73m2 () (test code = 8436261316) MARIBEL (test code = MARIBEL) Association of [...] tests). Lab Interpretation Abnormal (test code = 59293-9) [facility] HospitalLipase, [id number] 11:19:00 Test Item Value Reference Range Interpretation Comments LIPASE (test code = 4932928959) 85 U/L 0-220 Lab Interpretation (test code = Normal 20708-9) [facility] HospitalCB with [id number] 10:57:00 Test Item Value Reference Range Interpretation Comments WBC (test code = See_Comment H [Automated 9931-2) message] The sy stem which generated this result transmitted reference range : 4.20 - 10.70 10*3/?L. The reference range was not used to interpret this result as normal/abnormal . RBC (test code = See_Comment [Automated 163-9) message] The sy stem which generated this result transmitted reference range : 4.26 - 5.52 10*6/?L. The reference range was not used to interpret this result as normal/abnormal . HGB (test code = 15.2 g/dL 12.2-16.4 078-7) HCT (test code = 44.4 % 38.4-49.3 4544-3) MCV (test code = 84.9 fL 81.7-95.6 787-2) MCH (test code = 29.1 pg 26.1-32.7 785-6) MCHC (test code = 34.2 g/dL 31.2-35 786-4) RDW-SD (test code = 36.7 fL 38.5-51.6 L 50112-0) RDW-CV (test code = 11.9 % 12.1-15.4 L 788-0) PLT (test code = See_Comment [Automated 777-3) message] The sy stem which generated this result transmitted reference range : 150 - 328 10*3/ ?L. The reference r autumn was not used to interpret this result as normal/abnormal . MPV (test code = 9.4 fL 9.8-13 L 62159-8) NRBC/100 WBC (test See_Comment [Automat ed code = 8701122949) message] The system which generated this result transmitted reference range : 0.0 - 10.0 /100 WBCs. The refer ence range was not u sed to interpret th is result as normal/abnormal . NRBC x10^3 (test code <0.01 See_Comment [Auto mated = 4240583745) message] The s ystem which generated this result transmitted reference range : 10*3/?L. The reference range was not used to interpret this result as normal/abnormal . GRAN MAT (NEUT) % 62.7 % (test code = 770-8) IMM GRAN % (test code 0.40 % = 6094416288) LYMPH % (test code = 24.8 % 736-9) MONO % (test code = 7.5 % 5905-5) EOS % (test code = 3.9 % 713-8) BASO % (test code = 0.7 % 706-2) GRAN MAT x10^3(ANC) 7.23 10*3/uL 1.99-6.95 H (test code = 6772040031) IMM GRAN x10^3 (test 0.05 10*3/uL 0-0.06 code = 7700386961) LYMPH x10^3 (test code 2.86 10*3/uL 1.09-3.23 = 731-0) MONO x10^3 (test code 0.86 10*3/uL 0.36-1.02 = 742-7) EOS x10^3 (test code = 0.45 10*3/uL 0.06-0.53 711-2) BASO x10^3 (test code 0.08 10*3/uL 0.01-0.09 = 704-7) Lab Interpretation Abnormal (test code = 00197-0) [facility] CHE[facility] 1 [id number] 04:15:59CHEST ONE VIEW HISTORY: ?Right-sided pain TECHNIQUE: ?AP view of the chest is obtained. FINDINGS: Lungs are clear. Heart size and mediastinal silhouette arenormal. No pleural effusion or pneumothorax is seen. No definite displaced rib fracture is seen in the visualized rib cage. CONCLUSIONS: No acute cardiopulmonary disease. [facility], Radiant Results Inft User - 10/04/2019 11:17 PM CDTCHEST ONE VIEWHISTORY: Right-sided painTECHNIQUE: AP view of the chest is obtained.FINDINGS: Lungs are clear. Heart size and mediastinal silhouette arenormal. No pleural effusion or pneumothorax is seen.No definite displaced rib fracture is seen in the visualized rib cage.CONCLUSIONS: No acute cardiopulmonary disease.[facility] HospitalaPTT2020-04-28 04:06:00 Test Item Value Reference Range Interpretation Comments APTT Patient (test See_Comment [Automat ed code = 3173-2) message] The system which generated this result transmitted reference range : 23 - 38 Seconds . The reference range was not used to interpr et this result as normal/abnormal . MARIBEL (test code = MARIBEL) [facility] patient population mean normal value for aPTT is 30 seconds. Lab Interpretation Normal (test code = 74506-6) [facility] HospitalProthrombin Time (PT) / [id number] 04:06:00 Test Item Value Reference Range Interpretation [...] tions. Lab Interpretation (test Normal code = 89468-2) [facility] HospitalUrinalysis2020-04-28 04:02:00 Test Item Value Reference Range Interpretation Comments APPEARANCE (test code = Clear Clear 6261293424) COLOR (test code = Straw Yellow A 4240154249) PH (test code = 4.8-8.0 6461669504) SP GRAVITY (test code = 1.003-1.030 0649232181) GLU U QUAL (test code = Normal Normal 8283441729) BLOOD (test code = Negative Negative 9701850984) KETONES (test code = Negative Negative 6830292868) PROTEIN (test code = Negative Negative 2887-8) UROBILIN (test code = 2.0 mg/dL Normal A 2416268678) BILIRUBIN (test code = Negative Negative 3634904060) NITRITE (test code = Negative Negative 4314549790) LEUK DALLAS (test code = Negative Negative 9172316496) RBC/HPF (test code = <1 See_Comment [Autom ated message] 6005851421) The system [employer] generated this result transmit ngoc reference range : 0 - 3 HPF. The refe rence range was not u sed to interpret th is result as normal/abnormal . WBC/HPF (test code = See_Comment [Autom ated message] 4749961026) The system [employer] generated this result transmit ngoc reference range : 0 - 5 HPF. The refe rence range was not u sed to interpret th is result as normal/abnormal . BACTERIA (test code = Few Negative A 2057394370) MUCOUS (test code = Slight Negative LPF A 5614687149) SQ EPITH (test code = <1 HPF 0293515612) Lab Interpretation (test Abnormal code = 86432-2) [facility] (NA, K, CL, CO2, GLUCOSE, BUN, CREATININE, CA)2019-10-05 04:00:00 Test Item Value Reference Range Interpretation Comments NA (test code = 139 mmol/L 135-145 6321771376) K (test code = 3.8 mmol/L 3.5-5 8264536983) CL (test code = 104 mmol/L 98-108 3402128981) CO2 TOTAL (test code = 28 mmol/L 23-31 2171368584) AGAP (test code = 2-16 7744504171) BUN (test code = 12 mg/dL 7-23 2251814281) GLUCOSE (test code = 105 mg/dL 70-110 3904959754) CREATININE (test code 0.85 mg/dL 0.6-1.25 = [id number]) CALCIUM (test code = 9.5 mg/dL 8.6-10.6 5009793488) eGFR Calculation mL/min/1.73m2 (Non-) (test code = 7955990886) eGFR Calculation mL/min/1.73m2 () (test code = 7959845551) MARIBEL (test code = MARIBEL) Association of [...] or urine or abnormalities in imaging tests). [facility] (ALB, T.PRO, BILI T, BU/BC, ALT, AST, ALK PHOS)2019-10-05 04:00:00 Test Item Value Reference Range Interpretation Comments TOTAL BILI (test code = 2619040881) 0.6 mg/dL 0.1-1.1 BILI UNCON (test code = 4220971875) 0.7 mg/dL 0.1-1.1 BILI CONJ (test code = 6661130790) 0.0 mg/dL 0-0.3 T PROTEIN (test code = 9624771211) 7.9 g/dL 6.3-8.2 ALBUMIN (test code = 2983500966) 4.6 g/dL 3.5-5 ALK PHOS (test code = 1799451150) 81 U/L 34-122 ALTv (test code = 1742-6) 55 U/L 5-50 H AST(SGOT) (test code = 8939103444) 36 U/L 13-40 Lab Interpretation (test code = Abnormal 64078-4) [facility] [id number] 04:00:00 Test Item Value Reference Range Interpretation Comments LIPASE (test code = 4720338437) 95 U/L 0-220 Lab Interpretation (test code = Normal 21780-2) [facility] [id number] 04:00:00 Test Item Value Reference Range Interpretation Comments CK (test code = 3606453320) 255 U/L 33-194 H Lab Interpretation (test code = Abnormal 91968-6) [facility]CBC WITH [id number] 03:53:00 Test Item Value Reference Range Interpretation Comments WBC (test code = See_Comment [Automated 1080-2) message] The sy stem which generated this result transmitted reference range : 4.20 - 10.70 10*3/?L. The reference range was not used to interpret this result as normal/abnormal . RBC (test code = See_Comment [Automated 056-4) message] The sy stem which generated this [...] (test code = 36.7 fL 38.5-51.6 L 07091-0) RDW-CV (test code = 11.7 % 12.1-15.4 L 788-0) PLT (test code = See_Comment [Automated 777-3) message] The sy stem which generated this result transmitted reference range : 150 - 328 10*3/ ?L. The reference r autumn was not used to interpret this result as normal/abnormal . MPV (test code = 9.5 fL 9.8-13 L 37576-7) NRBC/100 WBC (test See_Comment [Automat ed code = 5809514300) message] The system which generated this result transmitted reference range : 0.0 - 10.0 /100 WBCs. The refer ence range was not u sed to interpret th is result as normal/abnormal . NRBC x10^3 (test code <0.01 See_Comment [Auto mated = 0957837119) message] The s ystem which generated this result transmitted reference range : 10*3/?L. The reference range was not used to interpret this result as normal/abnormal . GRAN MAT (NEUT) % 58.2 % (test code = 770-8) IMM GRAN % (test code 0.50 % = 7321200225) LYMPH % (test code = 29.9 % 736-9) MONO % (test code = 7.9 % 5905-5) EOS % (test code = 2.9 % 713-8) BASO % (test code = 0.6 % 706-2) GRAN MAT x10^3(ANC) 5.71 10*3/uL 1.99-6.95 (test code = 2322893897) IMM GRAN x10^3 (test 0.05 10*3/uL 0-0.06 code = 2284274205) LYMPH x10^3 (test code 2.94 10*3/uL 1.09-3.23 = 731-0) MONO x10^3 (test code 0.78 10*3/uL 0.36-1.02 = 742-7) EOS x10^3 (test code = 0.28 10*3/uL 0.06-0.53 711-2) BASO x10^3 (test code 0.06 10*3/uL 0.01-0.09 = 704-7) Lab Interpretation Abnormal (test code = 84912-7) [facility]XR [id number] 03:50:121. Paucity of gas in the small [...] No free airis noted under the diaphragm. [facility], Radiant Results Inft User - 10/04/2019 10:51 [...] bowel can be seen with fluid-filled loops ofbowel.[facility]
[2021-08-11] MEDS ORDERED: HYDROCODONE/APAP 10/325 TAB ONE (17:36)
--- NOTE | 2021-08-11 18:41 | EDPHYS ---
Physician Documentation [facility] Name: Milton Reeves Age: 40 yrs Sex: Male : 1980 Arrival Date: 08/11/2021 Time: 16:52 Bed 12 Private MD: ED Physician Quan Mcpherson HPI: 08/11 17:51 This 40 yrs old Male presents to ER via Wheelchair with complaints of Left Knee pain. pm1 17:51 The patient presents with pain. The complaints affect the left knee. Context: The pm1 problem was sustained at work, resulted from the patient falling, injury while walking down stairs, the patient is not able to bear weight, the patient is not able to ambulate, Problem is a result from a previous injury: No. Onset: The symptoms/episode began/occurred 5 day(s) ago. Modifying factors: The symptoms are alleviated by elevating leg, the symptoms are aggravated by movement. Associated signs and symptoms: Pertinent negatives numbness, tingling. Treatment prior to arrival includes: prescription medications, codeine, knee immoblizer. Severity of symptoms: in the emergency department the symptoms are actually worse. The patient has not experienced similar symptoms in the past. The patient has been recently seen at the [facility] Emergency Department, this week, for similar complaints X-rays were performed, CT scan was performed, was given a prescription for pain medications, MRI shows ruptured patellar tendon. Historical: - Allergies: 17:08 No Known Allergies; ag7 - PMHx: 17:08 None; ag7 - PSHx: 17:08 None; ag7 - Immunization history:: Adult Immunizations up to date. - Social history:: Smoking status: . ROS: 17:51 Constitutional: Negative for fever, chills, and weight loss, Cardiovascular: Negative pm1 for chest pain, palpitations, and edema, Respiratory: Negative for shortness of breath, cough, wheezing, and pleuritic chest pain. 17:51 Skin: Negative for injury, rash, and discoloration, Neuro: Negative for headache, weakness, numbness, tingling, and seizure. 17:51 MS/extremity: Positive for pain, of the left knee. 17:51 All other systems are negative. Exam: 17:51 Constitutional: This is a well developed, well nourished patient who is awake, alert, pm1 and in no acute distress. Head/Face: Normocephalic, atraumatic. 17:51 Skin: Warm, dry with normal turgor. Normal color with no rashes, no lesions, and no evidence of cellulitis. 17:51 Cardiovascular: Exam negative for acute changes, Rate: normal, Rhythm: regular, Pulses: no pulse deficits are appreciated. 17:51 Respiratory: Exam negative for acute changes, respiratory distress, shortness of breath. 17:51 Musculoskeletal/extremity: Extremities: grossly normal except: noted in the left knee: tenderness, There is no evidence of swelling. 17:51 Neuro: Exam negative for acute changes, Orientation: is normal, Mentation: is normal, Motor: is normal, moves all fours. Vital Signs: 17:04 BP 161 / 107; Pulse 108; Resp 20; Temp 98.9; Pulse Ox 96% on R/A; Weight 122.47 kg; ag7 Height 5 ft. 11 in. (180.34 cm) (R); Pain 8/10; 18:53 BP 148 / 74; Pulse 92; Resp 18; Pulse Ox 100% on R/A; ke1 17:04 Body Mass Index 37.66 (122.47 kg, 180.34 cm) ag7 MDM: 17:04 Patient medically screened. pm1 17:25 ED course: Readjusted knee brace and patient reports improvement in comfort and pain. pm1 18:40 Data reviewed: vital signs. Data interpreted: Pulse oximetry: on room air is 96 %. pm1 Interpretation: normal. Counseling: I had a detailed discussion with the patient and/or guardian regarding: the historical points, exam findings, and any diagnostic results supporting the discharge/admit diagnosis, the need for outpatient follow up, to return to the emergency department if symptoms worsen or persist or if there are any questions or concerns that arise at home. Administered Medications: 17:35 Drug: [place] (HYDROcodone-acetaminophen) 10 mg-325 mg 1 tabs Route: PO; ke1 18:00 Follow up: Response: Pain is decreased ke1 Disposition: 08/12 07:23 Co-signature as Attending Physician, Quan Mcpherson MD. rn Disposition Summary: 08/11/21 18:41 Discharge Ordered Location: Home pm1 Problem: new pm1 Symptoms: have improved pm1 Condition: Stable pm1 Diagnosis - Unspecified injury of other muscle(s) and tendon(s) at lower leg level, left leg, pm1 subsequent encounter - patellar tendon injjury Followup: pm1 - With: Emergency Department - When: As needed - Reason: Worsening of condition Followup: pm1 - With: Private Physician - When: 2 - 3 days - Reason: Recheck today's complaints, Continuance of care, Re-evaluation by your physician Followup: pm1 - With: Elias Deutsch MD - When: 2 - 3 days - Reason: Recheck today's complaints, Continuance of care, Re-evaluation by your physician Discharge Instructions: - Discharge Summary Sheet pm1 - Acute Knee Pain, Adult pm1 - Patellar Tendon Tear pm1 Forms: - Medication Reconciliation Form pm1 - Thank You Letter pm1 - Antibiotic Education pm1 - Prescription Opioid Use pm1 Prescriptions: - Tylenol-Codeine #3 300 mg-30 mg Oral - take 2 tablet by ORAL route every 6 hours As needed; 20 tablet; Refills: 0, pm1 Product Selection Permitted Signatures: Quan Mcpherson MD MD rn Marinas, Patrick, NP TARRING MACHINE OPERATOR pm1 Sam Valdes RN RN ke1 Alicia Singer RN RN ag7 Corrections: (The following items were deleted from the chart) 08/11 17:10 17:08 Home Meds: Acetaminophen Oral; ag7 ag7 18:43 18:41 Pain in left knee - patellar rupture pm1 pm1
--- NOTE | 2021-08-11 18:41 | ER ---
Nurse's Notes [facility] Name: Milton Reeves Age: 40 yrs Sex: Male : 1980 Arrival Date: 08/11/2021 Time: 16:52 Bed 12 Private MD: Diagnosis: Unspecified injury of other muscle(s) and tendon(s) at lower leg level, left leg, subsequent encounter-patellar tendon injjury Presentation: 08/11 17:04 Chief complaint: Patient states: "Friday I ruptured my patellar tendon to the left ag7 lower extremity and I have unresolved pain, brace not fitting and no pain medication". Coronavirus screen: Client denies travel out of the [place] in the last 14 days. At this time, the client does not indicate any symptoms associated with coronavirus-19. Ebola Screen: No symptoms or risks identified at this time. Initial Sepsis Screen: Does the patient meet any 2 criteria? No. Patient's initial sepsis screen is negative. Does the patient have a suspected source of infection? No. Patient's initial sepsis screen is negative. Risk Assessment: Do you want to hurt yourself or someone else? Patient reports no desire to harm self or others. Onset of symptoms was August 06, 2021. 17:04 Method Of Arrival: Wheelchair ag7 17:04 Acuity: HENRY 3 ag7 Triage Assessment: 17:15 Injury Description: Deformity sustained to left knee RUPTURE PATELLAR TENDON. ke1 Historical: - Allergies: 17:08 No Known Allergies; ag7 - PMHx: 17:08 None; ag7 - PSHx: 17:08 None; ag7 - Immunization history:: Adult Immunizations up to date. - Social history:: Smoking status: . Screenin:15 Abuse screen: Denies threats or abuse. Nutritional screening: No deficits noted. ke1 Tuberculosis screening: No symptoms or risk factors identified. Fall Risk Fall in past 12 months (25 points). No secondary diagnosis (0 pts). No IV (0 pts). Ambulatory Aid- Furniture (30 pts.). Gait- Impaired (20 pts.). Mental Status- Oriented to own ability (0 pts). Total Restrepo Fall Scale indicates High Risk Score (45 or more points). Fall prevention measures have been instituted. Placed Close to Nursing Station Frequent Obs/Assessments Occuring Family Present and informed to notify staff if the need to leave the bedside. Assessment: 17:15 General: Appears uncomfortable, Behavior is appropriate for age. Pain: Complains of ke1 pain in left leg Pain does not radiate. Pain currently is 7 out of 10 on a pain scale. Neuro: Level of Consciousness is awake, alert, Oriented to person, place, time, situation. Cardiovascular: Heart tones S1 S2 Capillary refill < 3 seconds Pulses are all present. Respiratory: Airway is patent Breath sounds are clear bilaterally. GI: Abdomen is obese. Musculoskeletal: Capillary refill < 3 seconds, Range of motion: limited in left knee and left ankle BRACE LEFT LEG Denies numbness in, left leg. 18:26 Reassessment: Patient denies pain at this time. Patient states symptoms have improved. ke1 18:53 Reassessment: Patient denies pain at this time. Patient states feeling better. Patient ke1 states symptoms have improved. Vital Signs: 17:04 BP 161 / 107; Pulse 108; Resp 20; Temp 98.9; Pulse Ox 96% on R/A; Weight 122.47 kg; ag7 Height 5 ft. 11 in. (180.34 cm) (R); Pain 8/10; 18:53 BP 148 / 74; Pulse 92; Resp 18; Pulse Ox 100% on R/A; ke1 17:04 Body Mass Index 37.66 (122.47 kg, 180.34 cm) ag7 ED Course: 16:52 Patient arrived in ED. jj6 16:56 Isaac Brunson NP is PHCP. pm1 16:56 Quan Mcpherson MD is Attending Physician. pm1 17:06 Sam Valdes, RN is Primary Nurse. ke1 17:08 Triage completed. ag7 17:11 Arm band placed on right wrist. ag7 17:15 Fall risk band placed. Bed in low position. Call light in reach. Adult w/ patient. ke1 18:44 Elias Deutsch MD is Referral Physician. pm1 18:53 No provider procedures requiring assistance completed. Patient did not have IV access ke1 during this emergency room visit. Administered Medications: 17:35 Drug: [place] (HYDROcodone-acetaminophen) 10 mg-325 mg 1 tabs Route: PO; ke1 18:00 Follow up: Response: Pain is decreased ke1 Outcome: 18:41 Discharge ordered by MD. pm1 18:53 Discharged to home via wheelchair, with family. ke1 18:53 Condition: good 18:53 Discharge instructions given to patient. 18:54 Patient left the ED. ke1 Signatures: Isaac Brunson PRECINCT COMMANDING OFFICER PRECINCT COMMANDING OFFICER pm1 Nathan Claudette jj6 Sam Valdes RN RN ke1 Alicia Singer RN RN ag7 Corrections: (The following items were deleted from the chart) 17:10 17:08 Home Meds: Acetaminophen Oral; ag7 ag7 17:38 17:15 Musculoskeletal: Capillary refill < 3 seconds, Range of motion: limited in left ke1 knee and left ankle ke1 17:42 17:39 Abuse screen: Denies threats or abuse. ke1 ke1 17:42 17:39 Nutritional screening: No deficits noted. ke1 ke1 17:42 17:39 Tuberculosis screening: No symptoms or risk factors identified. ke1 ke1 17:42 17:39 Fall Risk Fall in past 12 months (25 points). No secondary diagnosis (0 pts). No ke1 IV (0 pts). Ambulatory Aid- Furniture (30 pts.). Gait- Impaired (20 pts.). Mental Status- Oriented to own ability (0 pts). Total Restrepo Fall Scale indicates High Risk Score (45 or more points). Fall prevention measures have been instituted. Placed Close to Nursing Station Frequent Obs/Assessments Occuring Family Present and informed to notify staff if the need to leave the bedside ke1 17:56 17:15 Musculoskeletal: Capillary refill < 3 seconds, Range of motion: limited in left ke1 knee and left ankle BRACE LEFT LEG ke1
[2021-08-11 19:08] VITALS: TEMP 98.9
[2021-08-11 19:09] VITALS: BP 148/74; O2SAT 100
== END 2021-08-11 18:54 | disposition home or self-care (01) ==
LOC: ER 16:50
DX: S86.8 Injury of other muscles and tendons at lower leg level (principal)
CPT/HCPCS: 99283

== ENCOUNTER 2022-05-20 09:15 | Emergency (ER) | payer OTHER ==
--- OUTSIDE RECORDS SUMMARY | 2022-05-20 09:23 | XMS REPORT | Continuity of Care Document ---
:1980 Author Organization [facility] t Address [address] [place] [address] Care Team Providers Name Role Phone TREASURE GEMINI M Primary Care Physician Unavailable JAYJAY TALAMANTES Attending Clinician Unavailable RADHA PATINO Attending Clinician Unavailable JOSE NATONIO BADILLO Attending Clinician Unavailable Jayjay Talamantes Attending Clinician CAN LATHAM Attending Clinician Unavailable Suzie Cortez MD Attending Clinician Can Latham MD Attending Clinician Doctor Unassigned, [place] Attending Clinician Unavailable JAYJAY TALAMANTES Attending Clinician Unavailable JOSE ANTONIO BADILLO Attending Clinician Unavailable Jose Antonio Badillo Attending Clinician Radha Patino Attending Clinician Mary Kate Souza Attending Clinician MARY KATE SOUZA Attending Clinician Unavailable Lizbeth Morelos RN Attending Clinician Unavailable Leeanne Dc NP Attending Clinician LEEANNE DC Attending Clinician Unavailable DYLAN AMAYA Attending Clinician Unavailable Kelly Calle MD Attending Clinician KELLY CALLE Attending Clinician Unavailable John Guerrero MD Attending Clinician Junaid Shaffer MD Attending Clinician Mark Lerma Attending Clinician Raymundo Bloom MD Attending Clinician RAYMUNDO BLOOM Attending Clinician Unavailable RAYMUNDO BLOOM Attending Clinician Unavailable SUZIE CORTEZ Attending Clinician Unavailable CAN LATHAM Admitting Clinician Unavailable Can Latham MD Admitting Clinician Junaid Shaffer MD Admitting Clinician SUZIE CORTEZ Admitting Clinician Unavailable Payers Payer Name Policy Type Policy Number Effective Date Expiration Date S doc [employer] Ind[employer]ity [id number] 2021 COMP 00:00:00 [facility] MEDICA[facility] STAR [id number] 2021 00:00:00 [facility] [id number] 2020 00:00:00 [facility] [id number] PPO/POS [facility] [id number] 2022 [place] 00:00:00 [place] [id number] 2021 2021 00:00:00 00:00:00 AETNA O [id number] 2016 00:00:00 Problems Condition Condition Condition Status Onset Resolution Last Treating Co mments Source Name Details Category Date Date Treatment Clinician Date NOHEMI (acute NOHEMI (acute Disease Active 2021-06 U nivers kidney kidney 1-13 ity of injury) injury) 00:00: [address] Branch Obesity Obesity Disease Active 2021-06 Univers (BMI (BMI 1-13 ity of 30-39.9) 30-39.9) 00:00: [address] Obesity Obesity Disease Active [facility] ([facility] ([facility] 9-10 [facility] 30-39.9[facility] 30-39.9) 00:00: Medica l 00 Center Encounter Encounter Disease Active [facility] for 9-10 [facility] screening screening 00:00: [facility] [place] for other for other 00 Cent er viral viral diseases diseases Acute Acute Disease Active [facility] hepatitis hepatitis 9-10 [facility] 00:00: Medical 00 Center Fatty Fatty Disease Active [facility] liver liver 9-10 [facility] 00:00: Medical 00 Center Abnormal Abnormal Disease [facility] liver liver 9 [facility] enzymes enzymes 00:00: Medical 00 Center Abnormal Abnormal Disease [facility] liver 9-08 [facility] diagnostic diagnostic 00:00: Me dical imaging imaging 00 Center Acute Acute Disease Active [facility] respirator respirator 8-12 it y of y failure [place] failure [place] due to [place] Medical COVID-19 COVID-19 Branch Acute Acute Disease Active Univers respirator respirator 8-12 it y of y failure y failure 00:[place] due [place] due to 00 Medical COVID-19 COVID-19 Branch No known No known Disease Unive rs active active ity of problems problems [facility] Allergies, Adverse Reactions, Alerts Allergy Allergy Status Severity Reaction(s) Onset Inactive Treating Comm ents Source Name Type Date Date Clinician NO KNOWN Allergy [facility] Drug Active [facility] ALLERGIE Class ity of S [facility] Family History Family Member Diagnosis Comments Start Date Stop Date Source Natural father Heart disease [facility] Natural mother Anxiety disorder [facility] Natural mother COPD [facility] Natural mother Depression [facility] Natural mother Hypertension [facility] Social History Social Habit Start Date Stop Date Quantity Comments Source History of Cigarette Smoker Universi ty of tobacco use [facility] History SDOH [facility] Alcohol Std Medical Cent[facility] r Drinks History SDOH [facility] Alcohol Binge Medical Jhonny ter History SDOH [facility] Alcohol Comment Medical C enter Exposure to 2022-04-11 2022-04-21 Not sure University of SARS-CoV-2 00:00:00 14:09:00 [facility] (event) Branch Tobacco Comment 2022-04-21 2022-04-21 Vape quit 72 hrs Uni versity of 00:00:00 00:00:00 ago [facility] Branch Alcohol intake 2021-03-13 2021-03-[address] [address] [facility] 00:00:00 00:00:00 non-drinker Medical Cente r (finding) Tobacco use and 2021-02-14 2021-02-[address] [facility] [facility] exposure 00:00:00 00:00:00 Medical Center History SDOH 2021-02-14 2021-02-[address] [facility] Alcohol Frequency 00:00:00 00:00:00 Medical Center Sex Assigned At [address] [facility] 00:00:00 00:[facility]:00 Medical Center Smoking Status Start Date Stop Date Source Ex-smoker 2022-04-21 00:00:00 2022-04-21 [facility] [place] 00:00:00 Medical Branch Never smoker [facility] Tobacco smoking [facility] [place] consumption unknown Medical Bran ch Medications Ordered Filled Start Stop Current Ordering Indication Dosage Frequency Signature Comments Components Source Medication Medication Date Date Medication? Clinician (SIG) Name Name hydralAZINE 2021-06 No 5mg 5 mg, Slow Univers (APRESOLINE 1-15 11-15 IV Push, ity of ) injection 20:45: 20:20 ONCE, 1 [place] 5 mg 00 :00 dose, On Medical Tue Branch 04/23/22 at 1445, STAT apixaban 2021-06 Yes 5mg Take 5 mg Univ ers (ELIQUIS) 5 1-15 by mouth ity of mg tablet 18:10: in the [place] 23 morning Medical and 5 mg Branch in the evening. hydroCHLORO 2021-06 Yes 12.5mg Take 12.5 Univers thiazide 1-15 mg by ity of 12.5 mg 18:10: mouth in [place] capsule 23 the Medical morning. Branch meloxicam 2021-06- No 15mg Take 15 mg U nivers 15 mg 1-15 11-15 by mouth ity of tablet 14:24: 00:00 every 6 [place] 24 :00 (six) Medical hours as Branch needed for Pain. ibuprofen 2021-06- No 800mg Take 800 Un mal[place] 800 mg 1-15 11-15 mg by ity of tablet 14:23: 00:00 mouth in [place] 24 :00 the Medical morning Branch and 800 mg at noon and 800 mg in the evening. HYDROcodone 2021-06- No 1{tbl} Take 1 U nivers -acetaminop 1-15 11-15 tablet by it y of hen 10-325 14:23: 00:00 mouth [place] mg tablet 24 :00 every 6 Medical (six) Branch hours as needed for Pain (scale 7-10). ketorolac 2021-06 Yes 15mg 15 mg, Univer s (TORADOL) 1-15 Slow IV ity of injection 00:32: Push, [place] 15 mg 18 Q6HPRN, Medical Starting Branch on [facility] 04/22/22 at 1832, Until Discontinu ed, Routine, Pain (scale 4-6) meloxicam 2021-06 Yes 15mg Take 1 Univer s 15 mg 1-15 tablet by ity of tablet 00:00: mouth in [place] 00 the Medical morning. Branch lisinopriL 2021-06 Yes 10mg 10 mg, Unive rs (PRINIVIL,Z 1-14 Oral, ity of ESTRIL) 20:45: DAILY, [place] tablet 10 00 First dose Medi [place] mg on [facility] 04/22/22 at 1445, Until Discontinu ed, Routine KCL 2021-06- No 40meq 40 mEq, Univers (KLOR-CON -22 04-14 Oral, Q2H, ity of M20) tablet 14:45: 17:24 2 doses, [place] 40 mEq 00 :00 First dose Medical on [facility] 04/22/22 at 0845, Last dose on [facility] 04/22/22 at 1000, Routine apixaban 2021-06 Yes 5mg 5 mg, Univers (ELIQUIS) 1-14 Oral, BID, ity of tablet 5 mg 14:00: First dose [place] 00 on [facility] 04/22/22 Branch at 0800, Until Discontinu ed, Routine
Indicatio ns: DVT/PE zolpidem 2021-06 Yes 10mg 10 mg, Univers (AMBIEN) 1-14 Oral, ity of tablet 10 06:02: QHSPRN, [place] mg 52 Starting Medical on [facility] 04/22/22 at 0002, Until Discontinu ed, Routine, Insomnia traMADoL 2021-06 Yes [id number] 50mg 50 mg, Univers (ULTRAM) 1-14 Oral, ity of tablet 50 03:07: Q6HPRN, [place] mg 22 Starting Medical on [facility] 04/21/22 at 2107, Until Discontinu ed, Routine, Pain (scale 7-10) benzonatate 2021-06 Yes 100mg 100 mg, Un malcolm (TESSALON 1-14 Oral, ity of PERLES) 03:06: TIDPRN, [place] capsule 100 53 Starting Medi mil[place] mg on [facility] 04/21/22 at 2106, Until Discontinu ed, Routine, Cough albuterol 2021-06 Yes 2{puff} 2 Puff, Un mal[place] (VENTOLIN) -14 Inhalation ity of inhaler 2 03:06: , Q4HPRN, [place] as Puff 45 Starting Medical on [facility] 04/21/22 at 2106, Until Discontinu ed, Routine, Wheezing, Shortness of Breath NaCl 0.9% 2021-06- No 1000mL at 125 Uni vers (NS) IV 06-21 mL/hr, IV ity of infusion 23:30: 14:33 Infusion, Yas[place] as 1,000 mL 00 :56 CONTINUOUS Medic al , Starting Branch on [place] 04/21/22 at 1730, Until Fri04/22/22 at 0833, Routine enoxaparin 2021-06- No 40mg 40 mg, Univ ers (LOVENOX) 06-2114 Subcutaneo ity of injection 23:00: 03:10 [place], DAILY, [place] 40 mg 00 :01 First dose Medical on [facility] 04/21/22 at 1700, Until Discontinu ed, Routine NaCl 0.9% 2021-06- No 1000mL at 999 Uni vers (NS) bolus 06-21- mL/hr, ity of infusion 22:15: 21:08 1,000 mL, [place] as 1,000 mL 00 :00 IV Medical Infusion, Branch ONCE, 1 dose, On [place] 04/21/22 at 1615, STAT iopamidol 2021-06- No [id number] 75mL 75 mL, Univers (ISOVUE 06-21- Intravenou ity o f 370-500 mL) 21:20: 21:30 s, ONCE, 1 [place] injection 00 :00 dose, On Medica l 75 mL [place] Branch 04/21/22 at 1530, Routine multivitami 2020-06 Yes Take by [facility] n/iron/foli 0-05 mouth. [facility] c acid 12:13: Medical ([address] COMPLETE ORAL) multivitami 2020-06 Yes Take by [facility] n/iron/foli 0-05 mouth. [facility] c acid 12:13: Medical ([address] COMPLETE ORAL) multivitami 2020-06 Yes Take by [facility] n/iron/foli 0-05 mouth. [facility] c acid 12:13: Medical ([address] COMPLETE ORAL) multivitami 2020-06 Yes Take by [facility] n/iron/foli 0-05 mouth. [facility] c acid 12:13: Medical ([address] COMPLETE ORAL) buPROPion 2020-06 Yes 150mg QD Take [address] (WELLBUTRIN 0-03 mg by [facility] XL) 150 MG 00:00: mouth Medica l 24 hr 00 every Center tablet morning. buPROPion 2020-06 Yes 150mg QD Take [address] (WELLBUTRIN 0-03 mg by [facility] XL) 150 MG 00:00: mouth Medica l 24 hr 00 every Center tablet morning. buPROPion 2020-06 Yes 150mg QD Take [address] (WELLBUTRIN 0-03 mg by [facility] XL) 150 MG 00:00: mouth Medica l 24 hr 00 every Center tablet morning. buPROPion 2020-06 Yes 150mg QD Take [address] (WELLBUTRIN 0-03 mg by [facility] XL) 150 MG 00:00: mouth Medica l 24 hr 00 every Center tablet morning. NaCl 0.9% Yes 2000mL at 999 Univ ers (NS) IV 8-13 mL/hr, ity of infusion 01:00: Intravenou Yasir as 2,000 mL 00 s, Medical CONTINUOUS Branch , Starting [place] 01/18/21 at 2000, Until Discontinu ed, DAE enoxaparin Yes 40mg 40 mg, Unive rs (LOVENOX) 8-12 Subcutaneo ity of injection 22:00: [place], DAILY, [place] 40 mg 00 First dose Medical on [place] Branch 01/18/21 at 1700, Until Discontinu ed, Routine traMADoL 2020- No 50mg 50 mg, Univer s (ULTRAM) 01-18 Oral, ity of tablet 50 20:48: 20:47 Q4HPRN, [place] mg 58 :58 Starting Medical [place] 01/18/21 at 1548, Until 01/20/21 at 1547, Routine, Pain (scale 4-6), Pain (scale 7-10) KCL No 40meq 40 mEq, Univers (KLOR-CON 01-18 Oral, ity of M20) tablet 18:30: 19:18 ONCE, 1 [place] 40 mEq 00 :00 dose, [facility] Medical 01/18/21 at Branch 1330, Routine dexamethaso 2020- No 6mg 6 mg, IV U nivers ne 01-18 Push, ity of (DECADRON 14:45: 13:46 ONCE, 1 [place] PHOSPHATE) 00 :00 dose, [place] Medi [place] injection 6 01/18/21 at Br anch mg 0945, STAT iopamidol 2020- No [id number] 120mL 120 mL, Univers (ISOVUE 01-18 Intravenou [...] dose, [place] Med ical infusion 01/18/21 at [facility] 0845, Administer over 60 Minutes, 100 mL
Is the patient mechanical ly ventilated ? NO
Is the patient requiring supplement al oxygen? YES KCL 2020- No 40meq 40 mEq, Univers (KLOR-CON 01-18 Oral, ity of M20) tablet 13:30: 13:46 ONCE, 1 [place] 40 mEq 00 :00 dose, [facility] Medical 01/18/21 at Branch 0830, Routine ketorolac 2020- No 30mg 30 mg, Unive rs (TORADOL) 01-18 Slow IV ity of injection 12:30: 11:43 Push, [place] 30 mg 00 :00 ONCE, 1 Medical dose, [place] Branch 01/18/21 at 0730, Routine
food court team member approving Restricted medication : JOHN GUERRERO [...] mg 01/13/21 at Branch 0415, DAE benzonatate 2020- No 100mg 100 mg, U nivers (TESSALON 01-13 Oral, ity of PERLES) 09:00: 08:21 ONCE, 1 [place] capsule 100 00 :00 dose, Sat Med ical mg 01/13/21 at Branch 0400, Routine ibuprofen 0 Yes [id number] 600mg Take 1 Univers 600 mg 8- tablet by ity of tablet 00:00: mouth [place] 00 every 6 Medical (six) Branch hours as needed for Pain (scale 4-6). benzonatate 0 Yes [id number] 100mg Take 1 Univers 100 mg 8- capsule by ity of capsule 00:00: mouth 3 [place] 00 (three) Medical times Branch daily as needed for Cough. ondansetron 2021-0 Yes [id number] 4mg Take 1 Univers (ZOFRAN 8-07 tablet by ity of ODT) 4 mg 00:00: mouth [place] disintegrat 00 every 8 Medic al ing tablet (eight) Branch hours as needed for Nausea and Vomiting (N/V). albuterol 2020-0 Yes [id number] 2{puff} Inhale 2 Univers 90 8-07 Puffs ity of mcg/actuati 00:00: every 4 [place] as on inhaler 00 (four) Medical hours as Branch needed for Wheezing or Shortness of Breath. ibuprofen 2020-0 Yes [id number] 600mg Take 1 Univers 600 mg 8-07 tablet by ity of tablet 00:00: mouth [place] 00 every 6 Medical (six) Branch hours as needed for Pain (scale 4-6). benzonatate 2020-0 Yes [id number] 100mg Take 1 Univers 100 mg 8-07 capsule by ity of capsule 00:00: mouth 3 [place] 00 (three) Medical times Branch daily as needed for Cough. ondansetron 2020-0 Yes [id number] 4mg Take 1 Univers (ZOFRAN 8-07 tablet by ity of ODT) 4 mg 00:00: mouth [place] disintegrat 00 every 8 Medic al ing tablet (eight) Branch hours as needed for Nausea and Vomiting (N/V). albuterol 2020-0 Yes [id number] 2{puff} Inhale 2 Univers 90 8-07 Puffs ity of mcg/actuati 00:00: every 4 [place] as on inhaler 00 (four) Medical hours as Branch needed for Wheezing or Shortness of Breath. ibuprofen 2020-0 Yes [id number] 600mg Take 1 Univers 600 mg 8-07 tablet by ity of tablet 00:00: mouth [place] 00 every 6 Medical (six) Branch hours as needed for Pain (scale 4-6). benzonatate 2021-0 Yes [id number] 100mg Take 1 Univers 100 mg 8-07 capsule by ity of capsule 00:00: mouth 3 [place] 00 (three) Medical times Branch daily as needed for Cough. ondansetron 2020-0 Yes [id number] 4mg Take 1 Univers (ZOFRAN 8-07 tablet by ity of ODT) 4 mg 00:00: mouth [place] disintegrat 00 every 8 Medic al ing tablet (eight) Branch hours as needed for Nausea and Vomiting (N/V). albuterol Yes [id number] 2{puff} Inhale 2 Univers 90 8-07 Puffs ity of mcg/actuati 00:00: every 4 [place] as on inhaler 00 (four) Medical hours as Branch needed for Wheezing or Shortness of Breath. benzonatate Yes [id number] 100mg Take 1 Univers 100 mg 8-07 capsule by ity of capsule 00:00: mouth 3 [place] 00 (three) Medical times Branch daily as needed for Cough. ondansetron Yes [id number] 4mg Take 1 Univers (ZOFRAN 8-07 tablet by ity of ODT) 4 mg 00:00: mouth [place] disintegrat 00 every 8 Medic al ing tablet (eight) Branch hours as needed for Nausea and Vomiting (N/V). albuterol Yes [id number] 2{puff} Inhale 2 Univers 90 8-07 Puffs ity of mcg/actuati 00:00: every 4 [place] as on inhaler 00 (four) Medical hours as Branch needed for Wheezing or Shortness of Breath. ibuprofen 2021- No [id number] 600mg Take 1 Univers 600 mg 01-13 11-15 tablet by ity of tablet 00:00: 00:00 mouth [place] 00 :00 every 6 Medical (six) Branch hours as needed for Pain (scale 4-6). ketorolac 2019- No 30mg 30 mg, Unive rs (TORADOL) 02-26 Slow IV ity of injection 13:00: 12:14 Push, [place] 30 mg 00 :00 ONCE, 1 Medical dose, [place] [facility] 02/27/20 at 0800, Routine
food court team member approving Restricted medication : JOHN GUERRERO [...] [place] Branch 02/27/20 at 0700, Routine iohexol 2019-0 2020- No 120mL 120 mL, Unive rs (OMNIPAQUE 02-26 Intravenou it y of 350 11:45: 11:28 s, ONCE, 1 [place] BULK-100 00 :00 dose, Sun Medica l mL) 02/27/20 at Branch injection 0645, 120 mL Routine lisinopriL 2020-0 Yes [id number] 10mg Take 1 U nivers 10 mg 9-20 tablet by ity of tablet 00:00: mouth at [place] 00 bedtime. Medical Branch traMADoL 2020-0 Yes [id number] 50mg Take 1 Univers (ULTRAM) 50 9-20 tablet by ity of mg tablet 00:00: mouth [place] 00 every 6 Medical (six) Branch hours as needed for Pain (scale 7-10). Indication s: acute pain ondansetron 2020-0 Yes [id number] 4mg Take 1 Univers (ZOFRAN) 4 9-20 tablet by ity of mg tablet 00:00: mouth [place] 00 every 8 Medical (eight) Branch hours as needed for Nausea and Vomiting (N/V). dicyclomine 2020-0 Yes [id number] 20mg Take 1 Univers 20 mg 9-20 tablet by ity of tablet 00:00: mouth [place] 00 every 6 Medical (six) Branch hours as needed for Abdominal pain. lisinopriL 2020-0 Yes [id number] 10mg Take 1 U nivers 10 mg 9-20 tablet by ity of tablet 00:00: mouth at [place] 00 bedtime. Medical Branch traMADoL 2020-0 Yes [id number] 50mg Take 1 Univers (ULTRAM) 50 9-20 tablet by ity of mg tablet 00:00: mouth [place] 00 every 6 Medical (six) Branch hours as needed for Pain (scale 7-10). Indication s: acute pain ondansetron 2020-0 Yes [id number] 4mg Take 1 Univers (ZOFRAN) 4 9-20 tablet by ity of mg tablet 00:00: mouth [place] 00 every 8 Medical (eight) Branch hours as needed for Nausea and Vomiting (N/V). dicyclomine 2020-0 Yes [id number] 20mg Take 1 Univers 20 mg 9-20 tablet by ity of tablet 00:00: mouth [place] 00 every 6 Medical (six) Branch hours as needed for Abdominal pain. lisinopriL 2020-0 Yes [id number] 10mg Take 1 U nivers 10 mg 9-20 tablet by ity of tablet 00:00: mouth at [place] 00 bedtime. Medical Branch traMADoL 2020-0 Yes [id number] 50mg Take 1 Univers (ULTRAM) 50 9-20 tablet by ity of mg tablet 00:00: mouth [place] 00 every 6 Medical (six) Branch hours as needed for Pain (scale 7-10). Indication s: acute pain ondansetron 2020-0 Yes [id number] 4mg Take 1 Univers (ZOFRAN) 4 9-20 tablet by ity of mg tablet 00:00: mouth [place] 00 every 8 Medical (eight) Branch hours as needed for Nausea and Vomiting (N/V). dicyclomine 2020-0 Yes [id number] 20mg Take 1 Univers 20 mg 9-20 tablet by ity of tablet 00:00: mouth [place] 00 every 6 Medical (six) Branch hours as needed for Abdominal pain. lisinopriL 2020-0 Yes [id number] 10mg Take 1 U nivers 10 mg 9-20 tablet by ity of tablet 00:00: mouth at [place] 00 bedtime. Medical Branch traMADoL 2020-0 Yes [id number] 50mg Take 1 Univers (ULTRAM) 50 9-20 tablet by ity of mg tablet 00:00: mouth [place] 00 every 6 Medical (six) Branch hours as needed for Pain (scale 7-10). Indication s: acute pain ondansetron 2020-0 Yes [id number] 4mg Take 1 Univers (ZOFRAN) 4 9-20 tablet by ity of mg tablet 00:00: mouth [place] 00 every 8 Medical (eight) Branch hours as needed for Nausea and Vomiting (N/V). dicyclomine 2020-0 Yes [id number] 20mg Take 1 Univers 20 mg 9-20 tablet by ity of tablet 00:00: mouth [place] 00 every 6 Medical (six) Branch hours as needed for Abdominal pain. lisinopriL 2020-0 Yes [id number] 10mg Take 1 U nivers 10 mg 9-20 tablet by ity of tablet 00:00: mouth at [place] 00 bedtime. Medical Branch traMADoL 2020-0 Yes [id number] 50mg Take 1 Univers (ULTRAM) 50 9-20 tablet by ity of mg tablet 00:00: mouth [place] 00 every 6 Medical (six) Branch hours as needed for Pain (scale 7-10). Indication s: acute pain ondansetron 2020-0 Yes [id number] 4mg Take 1 Univers (ZOFRAN) 4 9-20 tablet by ity of mg tablet 00:00: mouth [place] 00 every 8 Medical (eight) Branch hours as needed for Nausea and Vomiting (N/V). dicyclomine 2020-0 Yes [id number] 20mg Take 1 Univers 20 mg 9-20 tablet by ity of tablet 00:00: mouth [place] 00 every 6 Medical (six) Branch hours as needed for Abdominal pain. lisinopriL 2020-0 Yes [id number] 10mg Take 1 U nivers 10 mg 9-20 tablet by ity of tablet 00:00: mouth at [place] 00 bedtime. Medical Branch traMADoL 2020-0 Yes [id number] 50mg Take 1 Univers (ULTRAM) 50 9-20 tablet by ity of mg tablet 00:00: mouth [place] 00 every 6 Medical (six) Branch hours as needed for Pain (scale 7-10). Indication s: acute pain ondansetron 2020-0 Yes [id number] 4mg Take 1 Univers (ZOFRAN) 4 9-20 tablet by ity of mg tablet 00:00: mouth [place] 00 every 8 Medical (eight) Branch hours as needed for Nausea and Vomiting (N/V). dicyclomine 2020-0 Yes [id number] 20mg Take 1 Univers 20 mg 9-20 tablet by ity of tablet 00:00: mouth [place] 00 every 6 Medical (six) Branch hours as needed for Abdominal pain. lisinopriL 2020-0 Yes [id number] 10mg Take 1 U nivers 10 mg 9-20 tablet by ity of tablet 00:00: mouth at [place] 00 bedtime. Medical Branch traMADoL 2020-0 Yes [id number] 50mg Take 1 Univers (ULTRAM) 50 9-20 tablet by ity of mg tablet 00:00: mouth [place] 00 every 6 Medical (six) Branch hours as needed for Pain (scale 7-10). Indication s: acute pain ondansetron 2020-0 Yes [id number] 4mg Take 1 Univers (ZOFRAN) 4 9-20 tablet by ity of mg tablet 00:00: mouth [place] 00 every 8 Medical (eight) Branch hours as needed for Nausea and Vomiting (N/V). dicyclomine 2020-0 Yes [id number] 20mg Take 1 Univers 20 mg 9-20 tablet by ity of tablet 00:00: mouth [place] 00 every 6 Medical (six) Branch hours as needed for Abdominal pain. lisinopriL 2020-0 Yes [id number] 10mg Take 1 U nivers 10 mg 9-20 tablet by ity of tablet 00:00: mouth at [place] 00 bedtime. Medical Branch traMADoL 2020-0 Yes [id number] 50mg Take 1 Univers (ULTRAM) 50 9-20 tablet by ity of mg tablet 00:00: mouth [place] 00 every 6 Medical (six) Branch hours as needed for Pain (scale 7-10). Indication s: acute pain ondansetron 2020-0 Yes [id number] 4mg Take 1 Univers (ZOFRAN) 4 9-20 tablet by ity of mg tablet 00:00: mouth [place] 00 every 8 Medical (eight) Branch hours as needed for Nausea and Vomiting (N/V). dicyclomine 2020-0 Yes [id number] 20mg Take 1 Univers 20 mg 9-20 tablet by ity of tablet 00:00: mouth [place] 00 every 6 Medical (six) Branch hours as needed for Abdominal pain. lisinopriL 2020-0 Yes [id number] 10mg Take 1 U nivers 10 mg 9-20 tablet by ity of tablet 00:00: mouth at [place] 00 bedtime. Medical Branch traMADoL 2020-0 Yes [id number] 50mg Take 1 Univers (ULTRAM) 50 9-20 tablet by ity of mg tablet 00:00: mouth [place] 00 every 6 Medical (six) Branch hours as needed for Pain (scale 7-10). Indication s: acute pain ondansetron 2020-0 Yes [id number] 4mg Take 1 Univers (ZOFRAN) 4 9-20 tablet by ity of mg tablet 00:00: mouth [place] 00 every 8 Medical (eight) Branch hours as needed for Nausea and Vomiting (N/V). dicyclomine 2020-0 Yes [id number] 20mg Take 1 Univers 20 mg 9-20 tablet by ity of tablet 00:00: mouth [place] 00 every 6 Medical (six) Branch hours as needed for Abdominal pain. lisinopriL 2020-0 Yes [id number] 10mg Take 1 U nivers 10 mg 9-20 tablet by ity of tablet 00:00: mouth at [place] 00 bedtime. Medical Branch traMADoL 2019- Yes [id number] 50mg Take 1 Univers (ULTRAM) 50 9-20 tablet by ity of mg tablet 00:00: mouth [place] 00 every 6 Medical (six) Branch hours as needed for Pain (scale 7-10). Indication s: acute pain dicyclomine Yes [id number] 20mg Take 1 Univers 20 mg 9-20 tablet by ity of tablet 00:00: mouth [place] 00 every 6 Medical (six) Branch hours as needed for Abdominal pain. ondansetron 2021- No [id number] 4mg Take 1 Univers (ZOFRAN) 4 9-20 11-15 tablet by ity of mg tablet 00:00: 00:00 mouth [place] 00 :00 every 8 Medical (eight) Branch hours as needed for Nausea and Vomiting (N/V). ketorolac 2019- No 30mg 30 mg, Unive rs (TORADOL) 10-04 0429 Slow IV ity of injection 05:00: 04:59 Push, Q6H, [place] 30 mg 00 :00 4 doses, Medical First dose Branch on Fri10/05/19 at 0000, Last dose on Fri10/05/19 at 1800, Routine
food court team member approving Restricted medication : SUZIE CORTEZ NaCl 0.9% 2019- No 1000mL at 999 Uni vers (NS) bolus 10-04-28 mL/hr, ity of infusion 04:45: 04:30 1,000 mL, Yasir as 1,000 mL 00 :00 IV Medical Infusion, Branch ONCE, 1 dose, Fri10/04/19 at 2345, STAT ibuprofen 2019- Yes [id number] 800mg Take 1 U nivers 800 mg 4-27 tablet by ity of tablet 00:00: mouth [place] 00 every 8 Medical (eight) Branch hours. methocarbam 2019-0 Yes [id number] 500mg Take 1 Univers ol 500 mg 4-27 tablet by ity o f tablet 00:00: mouth 00 (four) Medical times Branch daily. ibuprofen 2019-0 Yes [id number] 800mg Take 1 U nivers 800 mg 4-27 tablet by ity of tablet 00:00: mouth [place] 00 every 8 Medical (eight) Branch hours. methocarbam 2020-0 Yes [id number] 500mg Take 1 [facility] 500 mg 4-27 tablet by ity o f tablet 00:00: mouth (four) Medical times Branch daily. ibuprofen 2020-0 Yes [id number] 800mg Take 1 U nivers 800 mg 4-27 tablet by ity of tablet 00:00: mouth [place] 00 every 8 Medical (eight) Branch hours. methocarbam 2020-0 Yes [id number] 500mg Take 1 [facility] 500 mg 4-27 tablet by ity o f tablet 00:00: mouth (four) Medical times Branch daily. ibuprofen 2020-0 Yes [id number] 800mg Take 1 U nivers 800 mg 4-27 tablet by ity of tablet 00:00: mouth 00 every 8 Medical (eight) Branch hours. methocarbam 2020-0 Yes [id number] 500mg Take 1 [facility] 500 mg 4-27 tablet by ity o f tablet 00:00: mouth (four) Medical times Branch daily. ibuprofen 2020-0 Yes [id number] 800mg Take 1 U nivers 800 mg 4-27 tablet by ity of tablet 00:00: mouth 00 every 8 Medical (eight) Branch hours. methocarbam 2020-0 Yes [id number] 500mg Take 1 [facility] 500 mg 4-27 tablet by ity o f tablet 00:00: mouth (four) Medical times Branch daily. ibuprofen 2020-0 Yes [id number] 800mg Take 1 U nivers 800 mg 4-27 tablet by ity of tablet 00:00: mouth 00 every 8 Medical (eight) Branch hours. methocarbam 2020-0 Yes [id number] 500mg Take 1 [facility] 500 mg 4-27 tablet by ity o f tablet 00:00: mouth (four) Medical times Branch daily. methocarbam 2020-0 Yes [id number] 500mg Take 1 [facility] 500 mg 4-27 tablet by ity o f tablet 00:00: mouth (four) Medical times Branch daily. methocarbam 2020-0 Yes [id number] 500mg Take 1 [facility] 500 mg 4-27 tablet by ity o f tablet 00:00: mouth (four) Medical times Branch daily. methocarbam 2020-0 Yes [id number] 500mg Take 1 [facility] ol 500 mg 4-27 tablet by ity o f tablet 00:00: mouth 4 [place] 00 (four) Medical times Branch daily. ibuprofen Yes [id number] 800mg Take 1 U nivers 800 mg 4-27 tablet by ity of tablet 00:00: mouth [place] 00 every 8 Medical (eight) Branch hours. methocarbam Yes [id number] 500mg Take 1 [facility] 500 mg 4-27 tablet by ity o f tablet 00:00: mouth 4 [place] 00 (four) Medical times Branch daily. methocarbam 2021- No [id number] 500mg Take 1 [facility] 500 mg 4-27 11-15 tablet by ity of tablet 00:00: 00:00 mouth 4 [place] 00 :00 (four) Medical times Branch daily. ibuprofen 2020- No [id number] 800mg Take 1 Univers 800 mg 4-27 08-07 tablet by ity of tablet 00:00: 00:00 mouth [place] 00 :00 every 8 Medical (eight) Branch hours. Vital Signs Vital Name Observation Time Observation Value Comments Source Systolic blood 2022-04-23 22:13:00 152 mm[Hg] [facility] Diastolic blood 2022-04-23 22:13:00 106 mm[Hg] [facility] Heart rate 2022-04-23 22:13:00 99 /min [facility] Body temperature 2022-04-23 22:13:00 36.39 Jing [facility] Respiratory rate 2022-04-23 22:13:00 16 /min [facility] Oxygen saturation in 2022-04-23 22:13:00 97 /min [facility] Arterial blood by [facility] Pulse oximetry Branch Body weight 2022-04-23 09:43:00 126.962 kg [facility] BMI 2022-04-23 09:43:00 39.04 kg/m2 [facility] Body height 2022-04-21 23:12:00 180.3 cm [facility] HEIGHT 2021-02-14 12:52:00 180.3 cm WEIGHT 2021-02-14 12:52:00 109.77 kg HEIGHT 2021-02-14 12:52:00 180.3 cm WEIGHT 2021-02-14 12:52:00 109.77 kg Systolic blood 2021-01-19 02:00:00 139 mm[Hg] [facility] [place] [facility] Diastolic blood 2021-01-19 02:00:00 83 mm[Hg] [facility] [place] [facility] Heart rate 2021-01-19 02:00:00 85 /min [facility] [place] [facility] Oxygen saturation in 2021-01-19 02:00:00 99 /min [facility] Arterial blood by [place] [employer] [facility] Pulse oximetry Branch Respiratory rate 2021-01-19 01:00:00 20 /min [facility] [place] [facility] Body temperature 2021-01-18 11:04:00 37.78 Jing [facility] [place] [facility] Body height 2021-01-18 11:04:00 180.3 cm [facility] [place] [facility] Body weight 2021-01-18 11:04:00 113.399 kg [facility] [place] [facility] BMI 2021-01-18 11:04:00 34.87 kg/m2 [facility] [place] [facility] Systolic blood 2021-01-13 08:00:00 161 mm[Hg] [facility] [place] [facility] Diastolic blood 2021-01-13 08:00:00 98 mm[Hg] [facility] [place] [facility] Heart rate 2021-01-13 08:00:00 80 /min [facility] [place] [facility] Respiratory rate 2021-01-13 08:00:00 20 /min [facility] [place] [facility] Oxygen saturation in 2021-01-13 08:00:00 99 /min [facility] Arterial blood by [place] [employer] [facility] Pulse oximetry Branch Body temperature 2021-01-13 03:37:00 37.44 Jing [facility] [place] [facility] Body height 2021-01-13 03:37:00 180.3 cm [facility] [place] [facility] Body weight 2021-01-13 03:37:00 113.399 kg [facility] [place] [facility] BMI 2021-01-13 03:37:00 34.87 kg/m2 [facility] [place] [facility] Systolic blood 2021-01-12 03:13:00 167 mm[Hg] [facility] [place] [facility] Diastolic blood 2021-01-12 03:13:00 115 mm[Hg] [facility] [place] [facility] Heart rate 2021-01-12 03:13:00 101 /min [facility] [place] [facility] Body temperature 2021-01-12 03:13:00 37.94 Jing [facility] [place] [facility] Respiratory rate 2021-01-12 03:13:00 20 /min [facility] [place] [facility] Body height 2021-01-12 03:13:00 180.3 cm [facility] [place] [facility] Body weight 2021-01-12 03:13:00 113.399 kg [facility] [place] [facility] BMI 2021-01-12 03:13:00 34.87 kg/m2 [facility] [place] [facility] Oxygen saturation in 2021-01-12 03:13:00 97 /min [facility] Arterial blood by [place] [employer] [facility] Pulse oximetry Branch Systolic blood 2020-11-22 15:44:00 152 mm[Hg] [facility] [place] [facility] Diastolic blood 2020-11-22 15:44:00 94 mm[Hg] [facility] [place] [facility] Heart rate 2020-11-22 15:44:00 78 /min [facility] [place] [facility] Body temperature 2020-11-22 15:44:00 36.5 Jing [facility] [place] [facility] Respiratory rate 2020-11-22 15:44:00 18 /min [facility] [place] [facility] Body height 2020-11-22 15:44:00 180.3 cm [facility] [place] [facility] Body weight 2020-11-22 15:44:00 117.935 kg [facility] [place] [facility] BMI 2020-11-22 15:44:00 36.26 kg/m2 [facility] [place] [facility] Oxygen saturation in 2020-11-22 15:44:00 98 /min [facility] Arterial blood by [place] [employer] [facility] Pulse oximetry Branch Systolic blood 2020-02-27 11:00:00 160 mm[Hg] [facility] [place] [facility] Diastolic blood 2020-02-27 11:00:00 106 mm[Hg] [facility] [place] [facility] Heart rate 2020-02-27 11:00:00 75 /min [facility] [place] [facility] [place] Respiratory rate 2020-02-27 11:00:00 20 /min [facility] Oxygen saturation in 2020-02-27 11:00:00 96 /min [facility] Arterial blood by [facility] Pulse oximetry Branch Body temperature 2020-02-27 10:32:00 36.22 Jing [facility]ity of [facility] Body height 2020-02-27 10:32:00 182.9 cm [facility] [place] [facility] Body weight 2020-02-27 10:32:00 124.739 kg [facility] [place] [facility] BMI 2020-02-27 10:32:00 37.30 kg/m2 [facility] Systolic blood 2019-10-05 04:00:00 163 mm[Hg] [facility] Diastolic blood 2019-10-05 04:00:00 99 mm[Hg] [facility] Heart rate 2019-10-05 04:00:00 97 /min [facility] Oxygen saturation in 2019-10-05 04:00:00 96 /min [facility] Arterial blood by [facility] Pulse oximetry Branch Body temperature 2019-10-05 03:24:00 36.89 Jing [facility] ersity of [facility] Respiratory rate 2019-10-05 03:24:00 17 /min Univ [facility] Body height 2019-10-05 03:24:00 180.3 cm [facility] [place] [facility] [place] Body weight 2019-10-05 03:24:00 113.399 kg [facility] BMI 2019-10-05 03:24:00 34.87 kg/m2 [facility] Body height 2021-03-13 11:17:00 180.[address] [facility] Body weight 2021-03-13 11:17:00 108.[address] [facility] BMI 2021-03-13 11:17:00 33.47 kg/m2 [facility] Systolic blood 2021-02-14 12:52:00 139 mm[Hg] [facility] Diastolic blood 2021-02-14 12:52:00 93 mm[Hg] [facility] Heart rate 2021-02-14 12:52:00 83 /min [facility] Body temperature 2021-02-14 12:52:00 36.67 Jing [facility] Oxygen saturation in 2021-02-14 12:52:00 97 /min [facility] Arterial blood by Medical Ce [facility] Pulse oximetry Procedures Procedure Date / Time Performing Clinician Source Performed PHOSPHORUS 2022-04-23 10:26:00 [facility] 2022-04-23 10:26:00 Jameel [facility] HEPATIC FUNCTION PANEL 2022-04-23 10:26:00 Jameel [facility] ([id number]) (ALB,T.PRO,BILI Medical Branch T,BU/BC,ALT,AST,ALK PHOS) BASIC METABOLIC PANEL 2022-04-23 10:26:00 [facility] (NA, K, CL, CO2, Medical Branch GLUCOSE, BUN, CREATININE, CA) CBC WITH DIFF 2022-04-23 10:26:00 [facility] 2022-04-22 10:02:00 Jameel [facility] HEPATIC FUNCTION PANEL 2022-04-22 10:02:00 Can Latham [facility] ([id number]) (ALB,T.PRO,[facility] T,BU/BC,ALT,AST,ALK PHOS) BASIC METABOLIC PANEL 2022-04-22 10:02:00 Can Latham [facility] (NA, K, CL, CO2, Medical Branch GLUCOSE, BUN, CREATININE, CA) CBC WITH DIFF 2022-04-22 10:02:00 Jameel [facility] LACTIC ACID WHOLE BLOOD 2022-04-22 01:55:00 Jameel [facility] PHOSPHORUS 2022-04-22 01:54:00 [facility] ACUTE CARE ARTERIAL 2022-04-21 21:43:00 Suzie Cortez [facility] BLOOD GAS Medical Branch CT ABDOMEN PELVIS W 2022-04-21 21:28:54 Suzie Cortez [facility] CONTRAST [facility] URINALYSIS 2022-04-21 20:29:00 Suzie Cortez [facility] URINE DRUG (IMMUNOASSAY) 2022-04-21 20:29:00 Suzie Cortez [facility] SCREEN W/O REFLEX CREATINE KINASE 2022-04-21 20:27:00 Can Latham [facility] LIPASE 2022-04-21 20:27:00 Suzie Cortez [facility] COMP. METABOLIC PANEL 2022-04-21 20:27:00 Suzie Cortez [facility] ([id number]) [facility] SALICYLATE 2022-04-21 20:27:00 Suzie Cortez [facility] ETHANOL 2022-04-21 20:27:00 Diego Suzie [facility] CBC WITH DIFF 2022-04-21 20:27:00 Suzie Cortez [facility] PROTHROMBIN TIME / INR 2022-04-21 20:27:00 [facility] 2022-04-21 20:27:00 Suzie Cortez [facility] THRMPLAS KATLIN [facility] LACTIC ACID WHOLE BLOOD 2022-04-21 20:27:00 Suzie Cortez [facility] EKG-12 LEAD 2022-04-21 20:17:02 Suzie Cortez [facility] NOTICE OF PRIVACY 2022-04-21 19:53:31 Doctor Unassigned, No [facility] PRACTICES Name [facility] CONSENT/REFUSAL FOR 2022-04-21 19:53:16 [facility] Name [facility] CMV PCR, QUANTITATIVE 2021-02-14 14:55:00 Kelly Calle [facility] BASIC METABOLIC PANEL 2021-02-14 14:55:00 Kelly Calle [facility] (7) Center HEPATIC FUNCTION PANEL 2021-02-14 14:55:00 Kelly Calle I [facility] CBC W/PLT COUNT & AUTO 2021-02-14 14:55:00 Kelly Calle [facility] DIFFERENTIAL Center PROTHROMBIN TIME/INR 2021-02-14 14:55:00 AyannaKelly nielsen [facility] HEPATITIS B CORE 2021-02-14 14:55:00 Kelly Calle. SETH [facility] ANTIBODY, TOTAL Center HEPATITIS B SURFACE 2021-02-14 14:55:00 AyannaKelly nielsen [facility] ANTIBODY Center HEPATITIS A ANTIBODY, 2021-02-14 14:55:00 AyannaKelly blunt [facility] IGG Center FERRITIN 2021-02-14 14:55:[address] [facility] [id number]\\, 2021-02-14 14:55:00 Kelly Calle [facility] SERUM [employer] CBC W/PLT COUNT & AUTO 2021-02-14 14:55:00 Kelly Calle CH I [facility] DIFFERENTIAL [employer] HEPATITIS B SURFACE 2021-01-18 17:54:00 Can Latham [facility] ANTIGEN [facility] Branch HCV ANTIBODY 2021-01-18 17:54:00 Jameel [facility] HEPATITIS A VIRUS 2021-01-18 17:54:00 Jameel [facility] ANTIBODY IGM Medical Branch HEPATITIS B CORE 2021-01-18 17:54:00 Jameel [facility] ANTIBODY IGM Medical Branch PHOSPHORUS 2021-01-18 17:53:00 Jameel [facility] LACTATE DEHYDROGENASE 2021-01-18 17:53:00 Can Latham [facility] CREATINE KINASE 2021-01-18 17:53:00 Jameel [facility] MAGNESIUM 2021-01-18 17:53:00 Jameel [facility] FERRITIN SERUM 2021-01-18 17:53:[address] [facility] CT ABDOMEN PELVIS W 2021-01-18 13:18:30 Suzie Cortez [facility] CONTRAST Medical Branch CT CHEST PULMONARY 2021-01-18 13:18:30 John Guerrero [facility] ANGIOGRAM Medical Branch COMP. METABOLIC PANEL 2021-01-18 11:42:00 John Guerrero [facility] ([id number]) Medical Branch CBC WITH DIFF 2021-01-18 11:42:00 John Guerrero [facility] D-DIMER 2021-01-18 11:42:00 John Guerrero [facility] CONSENT/REFUSAL FOR 2021-01-18 10:43:14 Doctor Unassigned, No [facility] [place] [facility] Name Medical Branch NOTICE OF PRIVACY 2021-01-13 03:12:35 [facility]igned, No [facility] CONSENT/REFUSAL FOR 2021-01-13 03:12:13 Doctor Unassigned, No [facility] [place] DIAGNOSIS AND TREATMENT Name Medical Branch NOTICE OF PRIVACY 2021-01-12 03:00:22 Doctor [facility]assigned, No [facility] CONSENT/REFUSAL FOR 2021-01-12 03:00:00 Doctor Unassigned, No [facility] [place] DIAGNOSIS AND TREATMENT Name Medical Branch ASSIGNMENT OF BENEFITS 2020-11-22 15:58:53 Doctor Unassigned, No [facility] Medical Branch CT ABDOMEN PELVIS W 2020-02-27 11:32:43 John Guerrero [facility] CONTRAST Medical Branch URINALYSIS 2020-02-27 11:01:00 John Guerrero [facility] [place] LIPASE 2020-02-27 10:39:00 John Guerrero [facility] COMP. METABOLIC PANEL 2020-02-27 10:39:00 John Guerrero [facility] ([id number]) Medical Branch CBC WITH DIFF 2020-02-27 10:39:00 John Guerrero [facility] NOTICE OF PRIVACY 2020-02-27 10:23:10 Doctor Unassigned, No [facility] Branch CONSENT/REFUSAL FOR 2020-02-27 10:20:58 Doctor Unassigned, No [facility] [place] DIAGNOSIS AND TREATMENT Name Medical Branch XR CHEST 1 VW 2019-10-05 04:10:53 Cortez, [facility] XR KUB 2019-10-05 03:46:03 Diego Suzie [facility] CREATINE KINASE 2019-10-05 03:36:00 Diego Suzie [facility] LIPASE 2019-10-05 03:36:00 Diego Suzie [facility] HEPATIC FUNCTION PANEL 2019-10-05 03:36:00 Suzie Cortez [facility] ([id number]) (ALB,T.PRO,BILI [facility] Branch T,BU/BC,ALT,AST,ALK PHOS) BASIC METABOLIC PANEL 2019-10-05 03:36:00 Diego Suzie [facility] (NA, K, CL, CO2, Medical Branch GLUCOSE, BUN, CREATININE, CA) CBC WITH DIFFERENTIAL 2019-10-05 03:36:00 Diego [facility] PROTHROMBIN TIME / INR 2019-10-05 03:36:00 Diego Suzie [facility] ACTIVATED PARTIAL 2019-10-05 03:36:00 Diego [facility] THRMPLAS KATLIN [facility] URINALYSIS 2019-10-05 03:36:00 Suzie Cortez [facility] Plan of Care Planned Activity Planned Date Details Comments Source Future Scheduled 2022-03-[address] [facility] Test 00:00[facility]00 [facility] (12+) [code = Tobacco Cessation Counseling and Screening (12+)] Future Scheduled 2022-02-[address] [facility] Test 00:00:00 (#1) [code = [facility] INFLUENZA VACCINE (#1)] Future Scheduled 2022-02-[address] [facility] Test 00:00:00 (#1) [code = [facility] INFLUENZA VACCINE (#1)] Future Scheduled 2021-06-[address] [facility] Test 00:00:00 (12+) [code = Medical Center DEPRESSION SCREENING (12+)] Future Scheduled 2021-06-[address] [facility] Test 00:00:00 (12+) [code = Medical Center DEPRESSION SCREENING (12+)] Future Scheduled 2021-06-[address] [facility] Test 00:00:00 (12+) [code = Medical Center DEPRESSION SCREENING (12+)] Future Scheduled 2021-06-[address] [facility] Test 00:00:00 (12+) [code = [facility] Center DEPRESSION SCREENING (12+)] Future Scheduled 2021-02-[address] [facility] Test 00:00:00 (#1) [code = Medical Center INFLUENZA VACCINE (#1)] Future Scheduled 2021-02-[address] [facility] Test 00:00:00 (#1) [code = [facility] Center INFLUENZA VACCINE (#1)] Future Scheduled [address] [facility] 00:00:00 (procedure) [code = [facility] [id number]] Future Scheduled [address] [facility] 00:00:00 (procedure) [code = [facility] [id number]] Future Scheduled [address] [facility] 00:00:00 (procedure) [code = [facility] [id number]] Future Scheduled [address] [facility] 00:00:00 (procedure) [code = [facility] [id number]] Future Scheduled 2001 DTAP/TDAP/TD VACCINES [facility] 00:00:00 (1 - Tdap) [code = Medical C enter DTAP/TDAP/TD VACCINES (1 - Tdap)] Future Scheduled 2001 DTAP/TDAP/TD VACCINES [facility] 00:00:00 (1 - Tdap) [code = Medical C enter DTAP/TDAP/TD VACCINES (1 - Tdap)] Future Scheduled 2001 DTAP/TDAP/TD VACCINES [facility] 00:00:00 (1 - Tdap) [code = Medical C enter DTAP/TDAP/TD VACCINES (1 - Tdap)] Future Scheduled 2001 DTAP/TDAP/TD VACCINES [facility] 00:00:00 (1 - Tdap) [code = Medical C enter DTAP/TDAP/TD VACCINES (1 - Tdap)] Future Scheduled 2000 HEPATITIS C [facility]CRE[facility]00 [code = HEPATITIS C Medical Center SCREENING] Future Scheduled 2000 HEPATITIS C [facility]:00 [code = HEPATITIS C Medical Center SCREENING] Future Scheduled 2000 HEPATITIS C [facility]CRE[facility]:00:00 [code = HEPATITIS C Medical Center SCREENING] Future Scheduled 2000 HEPATITIS C [facility]:00:00 [code = HEPATITIS C Medical Center SCREENING] Future Scheduled 1987-10-01 COVID-19 VACCINE (1) [facility] 00:00:00 [code = COVID-[address] VACCINE (1)] Future Scheduled 1987-10-01 COVID-19 VACCINE (1) [facility] Test 00:00:00 [code = COVID-[address] VACCINE (1)] Future Scheduled 1983-04-01 COVID-19 VACCINE (#1) [facility] 00:00:00 [code = COVID-[address] VACCINE (#1)] Future Scheduled 1983-04-01 COVID-19 VACCINE (#1) [facility] 00:[facility]:00 [code = COVID-[address] VACCINE (#1)] Encounters Start End Encounter Admission Attending Care Care Encounter Source Date/Time Date/Time Type Type Clinicians Facility Department ID 2022-05-07 Outpatient [facility] [id number] [place] 04:22:08 [id number] Health 2022-04-23 Outpatient [facility] [id number] [place] 04:18:22 [id number] Health 2022-04-22 Outpatient [facility] [id number] [place] 08:16:52 [id number] Health 2022-04-05 Outpatient [facility] [id number] [place] 14:26:29 [id number] Outpatient [facility] [id number] [place] 09:02:31 [id number] Outpatient [facility] [id number] [place] 04:12:01 [id number] Health 2022-03-25 Outpatient [facility] [id number] [place] 09:38:32 [id number] Health 2022-03-22 Outpatient [facility] [id number] [place] 04:11:47 [id number] Health 2022-03-21 Outpatient [facility] [id number] [place] 04:05:10 [id number] Health 2022-03-13 Outpatient [facility] [id number] [place] 04:03:45 [facility] 2022-03-11 [place]patient [place] [id number] [place] 11:44:05 [facility] 2022-03-08 [place]patient [place] [id number] [place] 04:07:22 [id number] [facility] 2022-02-21 Outpatient [place] [id number] [place] 11:51:37 [id number] [facility] 2022-02-20 [place]patient [place] [id number] [place] 04:06:53 [id number] [facility] 2022-02-19 Outpatient [place] [id number] [place] 13:36:02 [id number] [facility] 2022-02-07 [place]patient [place] [id number] [place] 07:14:55 [id number] [facility] 2022-01-31 Outpatient [place] [id number] [place] 13:43:19 [id number] [facility] 2022-01-21 Outpatient [place] [id number] [place] 11:10:51 [id number] [facility] 2022-01-11 Outpatient [place] [id number] [place] 04:14:07 [id number] [facility] 2021-12-29 Outpatient [place] [id number] [place] 04:16:38 [id number] [facility] 2021-12-27 Outpatient ALBIN, [place] [id number] [place] 08:11:56 JAYJAY [id number] [facility] 2021-12-20 Outpatient [place] [id number] [place] 11:18:04 [id number] [facility] 2021-12-13 Outpatient SUKUMAR, [place] [id number] [place] 16:32:04 RADHA [id number] [facility] 2021-11-30 Outpatient [place] [id number] [place] 04:25:40 [id number] [facility] 2021-11-29 Outpatient ALBIN, [place] [id number] UT 13:06:51 JAYJAY [id number] [facility] 2021-11-21 Outpatient ALBIN, [place] [id number] [place] 01:05:11 JAYJAY [id number] [facility] 2021-11-20 Outpatient [place] [id number] [place] 09:56:41 [id number] [facility] 2021-11-08 Outpatient UTH [place] [id number] [place] 13:55:39 [id number] [facility] 2021-11-01 Outpatient [facility] [id number] [place] 16:21:45 [id number] [facility] 2021-10-31 Outpatient [facility] [id number] [place] 04:25:06 [id number] [facility] 2021-10-30 Outpatient [facility] [id number] [place] 04:24:33 [id number] [facility] 2021-10-29 Outpatient ALBIN, [facility] [id number] [place] 09:41:27 JAYJAY [id number] [facility] 2021-10-12 Outpatient [facility] [id number] [place] 04:24:52 [id number] [facility] 2021-10-08 Outpatient [facility] [id number] [place] 13:45:46 [id number] [facility] 2021-10-01 Outpatient SUKUMAR, [facility] [id number] [place] 10:30:22 RADHA [id number] [facility] 2021-09-24 Outpatient ALBIN, [facility] [id number] [place] 16:41:40 JAYJAY [id number] [facility] 2021-09-07 Outpatient [facility] [id number] [place] 04:28:15 [id number] [facility] 2021-09-04 Outpatient ALBIN, [facility] [id number] [place] 12:48:38 JAYJAY [id number] [facility] 2021-09-03 Outpatient [facility] [id number] [place] 14:55:42 [id number] [facility] 2021-08-31 Outpatient [facility] [id number] [place] 08:16:30 [id number] [facility] 2021-08-27 Outpatient ALBIN, [facility] [facility] [id number] [place] 11:04:01 [facility] SUKUMAR, [facility] [id number] [place] 09:38:20 RADHA [facility] 2021-08-17 Outpatient [facility] [id number] [place] 11:07:21 [facility] 2021-08-16 Outpatient ALBIN, [facility] [id number] [place] 11:51:43 [facility] Emergency [facility] [id number] Univers 14:58:14 ity [facility] 2021-04-09 Emergency [facility] [id number] Univers 13:48:30 ity [facility] 2021-04-09 Emergency [facility] [id number] Univers 13:34:09 ity [facility] 2021-04-06 Emergency [facility] [id number] Univers 18:28:05 [place]y [place] [facility] 2022-06-04 2022-06-04 Outpatient ALBIN [facility] [id number] [place] 13:45:00 13:45:00 [facility] 2022-05-29 2022-05-29 Outpatient ABY [facility] [id number] [place] 10:15:00 10:15:00 [facility] 2022-04-16 2022-05-15 Outpatient Albin 2.16.840. 2.16.840.1. [id number] 15:00:00 23:59:00 [facility] [id number] 3.615.57 5.57 2022-05-06 2022-05-06 Outpatient SUKUMAR [facility] [id number] [place] 10:00:00 10:12:15 RADHA anglin 2022-05-06 2022-05-06 Outpatient [facility] [id number] [place] 10:00:00 10:00:00 [facility] 2022-04-21 2022-04-23 Outpatient Mi TRACIEDEJON [facility] [id number] Univers 14:13:00 18:08:00 CAN it[place] of [facility] 2022-04-21 2022-04-23 Emergency Suzie Cortez [facility] 1.2.840. 114 [id number] Univers 14:13:00 18:08:00 [place] 350.1.13.10 ity of [place] 4.2.7.2.686 [facility] [phone] [facility] 081 Branch 2022-04-21 2022-04-21 Orders Doctor ALKA 1.2.840.114 [id number] Univers 00:00:00 00:00:00 Only Unassigned, GIBRAN 350.1.13.10 ity of [place] [facility] 4.2.7.2.686 Yasir [id number] [facility] [place] 009 Branch 2022-04-04 2022-04-04 Outpatient [facility] [id number] [place] 16:35:00 17:06:13 Health 2022-04-04 2022-04-04 Outpatient ALBIN, [facility] [id number] [place] 15:45:00 17:06:13 JAYJAY Health 2022-03-28 2022-03-28 Outpatient SUKUMAR, [facility] [id number] [place] 09:15:00 10:11:33 RADHA Healt h 2022-03-20 2022-03-20 Outpatient ALBIN [facility] [id number] 05:18:00 23:59:00 [facility] 2022-03-20 2022-03-20 Outpatient Albin [facility] [id number] 05:18:00 23:59:00 Jayjay Kneny 05 2022-03-20 2022-03-20 Outpatient Albin [facility] [id number] 05:18:00 23:59:00 Jayjay Kenny 05 2022-03-19 2022-03-19 [facility] [id number] [place] 14:15:00 14:00:00 JOSE ANTONIO Health 2022-03-19 2022-03-19 Outpatient ABY, [facility] [id number] [place] 14:00:00 14:00:00 JOSE ANTONIO Health 2022-03-04 2022-03-04 [facility] [id number] Memoria 07:27:00 12:55:00 JOSE ANTONIO l Josue Longoria Memscotty l 2022-03-04 2022-03-04 [facility] [place] [id number] 07:27:00 12:55:00 Jose Antonio 04 Chris 2022-02-08 2022-02-08 Outpatient ABY, [facility] [id number] [place] 13:30:00 13:30:00 JOSE ANTONIO Health 2022-02-07 2022-02-07 Outpatient [facility] [id number] [place] 14:00:00 14:19:34 Health 2022-02-05 2022-02-05 [facility] [id number] [place] 14:00:00 14:48:27 JOSE ANTONIO Health 2021-12-19 2022-01-17 Outpatient Sukumar, 2.16.840. 2.16.840.1. 4 [id number] 08:00:00 23:59:00 Radha [id number] Aliya 3.615.57 5.57 2022-01-16 2022-01-16 Outpatient ALBIN [facility] [id number] 14:38:00 23:59:00 [facility] 2022-01-16 2022-01-16 Outpatient Albin [facility] [id number] 14:38:00 23:59:00 Jayjay Kenny 03 2022-01-10 2022-01-10 Outpatient ALBIN, [facility] [id number] [place] 14:15:00 15:04:30 [facility] 2021-11-08 2021-12-07 Outpatient Sukumar, 2.16.840. 2.16.840.1. 4 [id number] 13:50:00 23:59:00 Radha 1.448270. [id number] Aliya 3.615.57 5.57 2021-10-01 2021-10-02 Outpatient [facility], [facility] [id number] 15:50:01 04:57:00 Mary Kate Y 02 2021-10-01 2021-10-02 Emergency E [facility] 7502 [facility] 15:50:00 04:57:00 MARY KATE 2021-08-22 2021-08-22 Outpatient ALBIN [facility] [id number] 10:35:00 23:59:00 [facility] 2021-08-22 2021-08-22 Outpatient Albin [facility] [id number] 10:35:00 23:59:00 Jayjay Kenny 2021-03-23 2021-03-23 Telephone Jethro [facility] [id number] [facility] 00:00:00 00:00:00 Lizbeth Lopez [facility] 2021-03-13 2021-03-13 [facility], [facility] [id number] 12:00:00 15:05:38 Telemedici Leeanne Gonzalez [facility] 2021-03-13 2021-03-13 Outpatient SANTI MURILLO [facility] [id number] SLE 11:15:58 15:05:38 LEEANNE 2021-02-22 2021-02-22 Outpatient RUTH AMAYA [facility] [id number] SLEH 00:00:00 00:00:00 PRASUN 2021-02-15 2021-02-15 Documentat Jethro, [facility] [id number] 00:00:00 00:00:00 corry Lopez [facility] 2021-02-14 2021-02-14 Office RUTH Calle [facility] [id number] 10:33:30 11:33:30 [facility] 2021-02-14 2021-02-14 Outpatient RUTH CALLE [facility] [id number] SLE 00:00:00 00:00:00 [facility] 2021-01-18 2021-01-18 [place] 1.2.840. 114 [id number] Univers 06:07:00 21:56:00 Encounter Can [place] 350.1.13.10 ity of [place] Shaffer 4.2.7.2.[address] [place] [address] [phone] [place] [address] Branch 2021-01-12 2021-01-13 Emergency Mark Foster [facility] 1.2.840.114 [id number] Univers 22:40:00 03:32:00 Brissa Vines 350.1.13.10 i ty of [place] 4.2.7.2.[address] [place] [address] [phone] [place] [address] Branch 2021-01-11 2021-01-12 Emergency [facility] [id number] Univers 22:14:00 00:50:00 Mohinder 350.1.13.10 i ty of [place] 4.2.7.2.[address] [place] [address] [id number] [place] [id number] [place] 2021-01-11 2021-01-11 Orders Doctor ALKA 1.2.840.114 [id number] Univers 00:00:00 00:00:00 Only Unassigned, GIBRAN 350.1.13.10 ity of [place] [facility] 4.2.7.2.686 Yasir as [id number] [address] 2020-11-22 2020-11-22 Office Cathie [facility] 1.2.610.703 [id number] Univers 10:36:13 11:06:13 Visit Raymundo Vines 350.1.13.10 ity of [place]2.7.2.686 [place] [facility] [id number] [address] 2020-11-22 2020-11-22 Outpatient R RAYMUNDO BLOOM [facility] [id number] Univers 10:30:00 10:30:00 RAYMUNDO BLOOM itkim [facility] 2020-11-22 2020-11-22 Orders Doctor ALKA 1.2.840.114 [id number] Univers 00:00:00 00:00:00 Only Unassigned, GIBRAN 350.1.13.10 ity of [place] [facility] 4.2.7.2.686 Yasir as [id number] [address] 2020-02-27 2020-02-27 Emergency [facility] [id number] Univers 05:27:00 07:27:00 John [place] 350.1.13.10 ity of [place] [id number] [address] 2019-10-04 2019-10-04 Emergency [facility] [id number] Univers 22:25:41 23:37:00 SUZIE ity [facility] 2019-10-04 2019-10-04 [facility] 1.2.160.220 [id number] Univers 22:25:41 23:37:00 Suzie V[place] 350.1.13.10 i ty of [place] [phone] [facility] 084 Branch Results Test Description Test Time Test Comments Results Result Comments Source MAGNESIUM 2022-04-23 11:37:02 Test Item Value Reference Range Interpretation Comme nts MAGNESIUM (test code = 0078692855) 2.3 mg/dL 1.7-2.4 Lab Interpretation (test code = 40387-7) Normal [facility] (NA, K, CL, CO2, GLUCOSE, BUN, CREATININE, CA)2022-04-23 11:36:42 Test Item Value Reference Range Interpretation Comments NA (test code = 138 mmol/L 135-145 3886893093) K (test code = 3.5 mmol/L 3.5-5.0 9434291381) CL (test code = 104 mmol/L 98-108 0989329040) CO2 TOTAL (test code 25 mmol/L 23-31 = 0949227397) AGAP (test code = 2-16 9601771982) BUN (test code = 10 mg/dL 7-23 3387948076) GLUCOSE (test code = 100 mg/dL 70-110 5174384426) CREATININE (test code 0.87 mg/dL 0.60-1.25 = 6263037876) CALCIUM (test code = 8.9 mg/dL 8.6-10.6 6721702578) eGFR (test code = mL/min/1.73m2 0934821871) MARIBEL (test code = MARIBEL) Association of Glomerular Filtration Rate (GFR) and Staging of Kidney Disease* + + +- +| GFR (mL/min/1.73 m2) ?| With Kidney Damage ?| ?Without Kidney Damage+ ------+ ----+ ------+| ?>90 ?| ?Stage one ?| ? Normal ?+ -+ + -+| ?60-89 ?| ?Stage two ?| ? Decreased GFR ? + + +- +| ?30-59 ?| ?Stage three ?| ? Stage three ? + + +- +| ?15-29 ?| ?Stage four ? | ? Stage four ?+ -+ + -+| ?<15 (or dialysis) ? ?| ?Stage five ? | ? Stage five ?+ -+ + -+ *Each stage assumes the associated GFR level [...] or urine or abnormalities in imaging tests). [facility]2022-[facility]-15 11:36:27 Test Item Value Reference Range Interpretation Comments PHOSPHORUS (test code = 2348748585) 3.5 mg/dL 2.5-5.0 Lab Interpretation (test code = Normal 22658-5) [facility] (13045) (ALB,T.PRO,BILI T,BU/BC,ALT,AST,ALK PHOS)2022-04-23 11:36:26 Test Item Value Reference Range Interpretation Comments TOTAL BILI (test code = 8084675535) 0.9 mg/dL 0.1-1.1 BILI UNCON (test code = 3031977608) 0.7 mg/dL 0.1-1.1 BILI CONJ (test code = 0853540896) 0.0 mg/dL 0.0-0.3 T PROTEIN (test code = 3789808313) 7.2 g/dL 6.3-8.2 ALBUMIN (test code = 7503221235) 4.2 g/dL 3.5-5.0 ALK PHOS (test code = 9415377561) 87 U/L 34-122 ALTv (test code = 1742-6) 37 U/L 5-50 AST(SGOT) (test code = 5268028627) 31 U/L 13-40 Lab Interpretation (test code = Normal 18752-6) [facility] WITH [id number] 11:02:40 Test Item Value Reference Range Interpretation Comments WBC (test code = See_Comment [Automated 6690-2) message] The sy stem which generated this result transmitted reference range : 4.20 - 10.70 10*3/?L. The reference range was not used to interpret this result as normal/abnormal . RBC (test code = See_Comment [Automated 789-8) message] The sy stem which generated this result transmitted reference range : 4.26 - 5.52 10*6/?L. The reference range was not used to interpret this result as normal/abnormal . HGB (test code = 14.1 g/dL 12.2-16.4 718-7) HCT (test code = 40.8 % 38.4-49.3 4544-3) MCV (test code = 83.3 fL 81.7-95.6 787-2) MCH (test code = 28.8 pg 26.1-32.7 785-6) MCHC (test code = 34.6 g/dL 31.2-35.0 786-4) RDW-SD (test code = 37.2 fL 38.5-51.6 L 57929-9) RDW-CV (test code = 12.3 % 12.1-15.4 788-0) PLT (test code = See_Comment [Automated 777-3) message] The sy stem which generated this result transmitted reference range : 150 - 328 10*3/ ?L. The reference r autumn was not used to interpret this result as normal/abnormal . MPV (test code = 9.7 fL 9.8-13.0 L 41907-8) NRBC/100 WBC (test See_Comment [Automat ed code = 4468609001) message] The system which generated this result transmitted reference range : 0.0 - 10.0 /100 WBCs. The refer ence range was not u sed to interpret th is result as normal/abnormal . NRBC x10^3 (test code See_Comment [Auto mated = 9583126570) message] The s ystem which generated this result transmitted reference range : 10*3/?L. The reference range was not used to interpret this result as normal/abnormal . GRAN MAT (NEUT) % 56.5 % (test code = 770-8) IMM GRAN % (test code 0.30 % = 2207754689) LYMPH % (test code = 30.3 % 736-9) MONO % (test code = 11.5 % 5905-5) EOS % (test code = 0.8 % 713-8) BASO % (test code = 0.6 % 706-2) GRAN MAT x10^3(ANC) 5.22 10*3/uL 1.99-6.95 (test code = 1484766149) IMM GRAN x10^3 (test 0.03 10*3/uL 0.00-0.06 code = 7558169330) LYMPH x10^3 (test code 2.80 10*3/uL 1.09-3.23 = 731-0) MONO x10^3 (test code 1.06 10*3/uL 0.36-1.02 H = 742-7) EOS x10^3 (test code = 0.07 10*3/uL 0.06-0.53 711-2) BASO x10^3 (test code 0.06 10*3/uL 0.01-0.09 = 704-7) Lab Interpretation Abnormal (test code = 00954-1) [facility] HospitalCREAT[facility] [id number] 22:44:28 Test Item Value Reference Range Interpretation Comments CK (test code = 0702651487) 619 U/L 33-194 H Lab Interpretation (test code = Abnormal 46307-3) [facility] HospitalSALICYLATE2022-11-13 21:23:00 SALICYLATE<10mg/L106/21/2021 3:23 PM [facility] Range: ? Analgesic and Antipyretic Use ? 20- 100 mg/L ? ? Anti-Inflammatory Use ? 100-250 mg/L Toxic Range: ? Greater than 300 mg/LUnShannon Medical CenterETHANOL2022-11-13 21:22:55ALCOHOL<10mg/dL04/21/2022 3:22 PM [facility]<10 Vycpictf72-231 Toxic>100 Depression of MORTGAGE PROCESSING CLERK>400 Fatalities ReportedUnShannon Medical CenterACETAMINOPHEN 2022-04-21 21:22:55 Test Item Value Reference Range Interpretation Comments ACETAMINOP (test code = 10.0-30.0 L 9387853635) MARIBEL (test code = MARIBEL) Toxic: Greater than 200 ug/mL @ 4 hour post ingestion or greater than 50 ug/mL @ 12 hour post ingestion Lab Interpretation (test Abnormal code = 01072-7) [facility] WITH [id number] 21:21:49 Test Item Value Reference Range Interpretation Comments WBC (test code = See_Comment H [Automated 6690-2) message] The system which generated this result transmit papito reference range : 4.20 - 10.70 10*3/?L. The reference range was not used to interpret this result as normal/abnormal . RBC (test code = See_Comment H [Automated 789-8) message] The system which generated this result transmit papito reference range : 4.26 - 5.52 10*6/?L. The reference range was not used to interpret this result as normal/abnormal . HGB (test code = 17.7 g/dL 12.2-16.4 H 718-7) HCT (test code = 48.6 % 38.4-49.3 4544-3) MCV (test code = 80.1 fL 81.7-95.6 L 787-2) MCH (test code = 29.2 pg 26.1-32.7 785-6) MCHC (test code = 36.4 g/dL 31.2-35.0 H 786-4) RDW-SD (test code = 34.7 fL 38.5-51.6 L 25356-6) RDW-CV (test code = 12.1 % 12.1-15.4 788-0) PLT (test code = See_Comment H [Automated 777-3) message] The system which generated this result transmit papito reference range : 150 - 328 10*3/ ?L. The reference range was not u sed to interpret th is result as normal/abnormal . MPV (test code = 9.8 fL 9.8-13.0 56542-6) NRBC/100 WBC (test See_Comment [Automat ed code = 1781951867) message] The system which generated this result transmit papito reference range : 0.0 - 10.0 /100 WBCs. The reference range was not used to interpret this result as normal/abnormal . NRBC x10^3 (test code See_Comment [Auto mated = 7219357692) message] The system which generated this result transmit papito reference range : 10*3/?L. The reference range was not used to interpret this result as normal/abnormal . GRAN MAT (NEUT) % 73.6 % (test code = 770-8) IMM GRAN % (test code 0.40 % = 4308898133) LYMPH % (test code = 16.0 % 736-9) MONO % (test code = 9.6 % 5905-5) EOS % (test code = 0.1 % 713-8) BASO % (test code = 0.3 % 706-2) GRAN MAT x10^3(ANC) 11.52 10*3/uL 1.99-6.95 H (test code = 6803566587) IMM GRAN x10^3 (test 0.07 10*3/uL 0.00-0.06 H code = 4859052182) LYMPH x10^3 (test code 2.50 10*3/uL 1.09-3.23 = 731-0) MONO x10^3 (test code 1.51 10*3/uL 0.36-1.02 H = 742-7) EOS x10^3 (test code = 0.06-0.53 L 711-2) BASO x10^3 (test code 0.05 10*3/uL 0.01-0.09 = 704-7) Lab Interpretation Abnormal (test code = 96165-9) [facility] HospitalL[facility] Acid Whole [id number] 21:18:32 Test Item Value Reference Range Interpretation Comments LACTIC ACID (test code = 2.21 mmol/L 0.50-2.20 H 0039127987) Lab Interpretation (test code = Abnormal 05302-1) [facility] HospitalACTIVATED PARTIAL THRMPLAS [id number] 21:04:23 Test Item Value Reference Range Interpretation Comments APTT Patient (test See_Comment [Automat ed code = 3173-2) message] The system which generated this result transmitted reference range : 23 - 38 Seconds . The reference range was not used to interpr et this result as normal/abnormal . MARIBEL (test code = MARIBEL) The [facility] patient population mean normal value for aPTT is 30 seconds. Lab Interpretation Normal (test code = 12139-7) [facility] HospitalPROTHROMBIN TIME / [id number] 21:02:22 Test Item Value Reference Range Interpretation Comments PROTIME PATIENT (test See_Comment H [Auto mated message] code = 5964-2) The system [employer] generated this result transmitted ref erence range: 12.0 - 1 4.7 Seconds. The reference range was not used to int erpret this result as normal/abnormal . INR (test code = 6301-6) Nor mal INR <1.1; Warfarin Therap eutic range 2.0 to 3. 0 or 2.5 to 3.5, dep ending upon the indica tions. Lab Interpretation (test Abnormal code = 07211-7) [facility] HospitalCOMP. METABOLIC PANEL (20307)2022-04-21 20:58:25 Test Item Value Reference Range Interpretation Comments NA (test code = 139 mmol/L 135-145 5166670017) K (test code = 3.6 mmol/L 3.5-5.0 7385459307) CL (test code = 100 mmol/L 98-108 6607670497) CO2 TOTAL (test code = 22 mmol/L 23-31 L 6658896831) AGAP (test code = 2-16 H 3433352242) BUN (test code = 17 mg/dL 7-23 2618274652) GLUCOSE (test code = 116 mg/dL 70-110 H 7203924416) CREATININE (test code = 1.29 mg/dL 0.60-1.25 H 3955865646) TOTAL BILI (test code = 1.1 mg/dL 0.1-1.5 0748139333) CALCIUM (test code = 10.1 mg/dL 8.6-10.6 3776396107) T PROTEIN (test code = 9.3 g/dL 6.3-8.2 H 8288036459) ALBUMIN (test code = 5.4 g/dL 3.5-5.0 H 5483461540) ALK PHOS (test code = 134 U/L 34-122 H 1227280631) ALTv (test code = 45 U/L 5-50 1742-6) AST(SGOT) (test code = 37 U/L 13-40 8998471919) eGFR (test code = mL/min/1.73m2 9428225636) MARIBEL (test code = MARIBEL) Association of [...] tests). Lab Interpretation Abnormal (test code = 17190-9) [facility] HospitalLIPASE2022-11-13 20:57:44 Test Item Value Reference Range Interpretation Comments LIPASE (test code = 7188781269) 108 U/L 0-220 Lab Interpretation (test code = Normal 19370-2) [facility] HospitalHEPATITIS B CORE ANTIBODY, [id number] 15:44:00 Test Item Value Reference Range Interpretation Comments HEPATITIS B CORE TOTAL ANTIBODY Nonreactive Nonreactive (GAVIN) (test code = 497) [employer] Stamping Press Operator RITU Berger FERNANDO FCMV PCR, [id number] 13:55:00 Test Item Value Reference Range Interpretation Comments CMV VIRAL LOAD - Negative or below See_Comment [Auto mated message] NEGATIVE (GAVIN) the linear range The sy stem which (test code = of the assay generated this 2558) (<300 IU/mL) result transmit papito reference range : <300 - >3,00 0,000 [...] management of antiviral therapy. For treatment of CMV infection due to reactivation in transplant recipients, a threshold between 4,000 and 5,000 copies/mLis suggested. For treatment of primary CMV infection, a lower threshold can be used.CMV infection may also be monitored using weekly serial measurements. Serial measurements of CMV DNA viral load can be evaluated by identifying a 10-fold change, as well as assessing the CMV DNA viral load and the clinical context for each patient.The plasma CMV DNA viral load was detected using quantitative polymerase chain reaction and fluorescent monitoring of a specific hybridized probe. Genetic variation and other factors can affect the accuracy of nucleic acid testing. Therefore, the results should be interpreted in light of clinical data. A negative result may not exclude the presence of CMV disease.This test was developed and its performance characteristics determined by the [facility] Pathol ogy Department, Section of Molecular Pathology. It has not been cleared or approved by the U.S. Foodand Drug Administration (FDA), since FDA approval is not required for clinical use of the test. Validation was done as required by The Clinical Laboratory Improvement Amendments of 1988.HEPATITIS B SURFACE [id number] 17:28:00 Test Item Value Reference Range Interpretation Comments HEPATITIS B SURFACE ANTIBODY < mIU/mL <8.0 (Silversky) (test code = 647) [employer] Stamping [employer] Operator ID - CDPHEPATITIS A ANTIBODY, [id number] 17:26:00 Test Item Value Reference Range Interpretation Comments HEPATITIS A IGG ANTIBODY (Silversky) Nonreactive Nonreactive (test code = 2797) [employer] Stamping [employer] Operator ID - [id number] 16:28:00 Test Item Value Reference Range Interpretation Comments ALPHA-1 ANTITRYPSIN (Silversky) 141.30 mg/dL 90.00-200.00 (test code = 502) [employer] Stamping [employer] Operator ID - [id number] 16:07:00 Test Item Value Reference Range Interpretation Comments FERRITIN (BEAKER) (test code = 238.52 ng/mL 5.00-275.00 361) [employer] Stamping [employer] Operator ID - PIAYA LBASIC METABOLIC [id number] 15:46:00 Test Item Value Reference Range Interpretation [...] 697) EGFR (BEAKER) (test 74 mL/min/1.73 ESTIMA PAPITO GFR IS code = 1092) sq m NOT ACCURATE CREATININE CLEARANCE IN PREDICTING GLOMERULAR FILTRATION RATE . ESTIMATED GFR I S NOT APPLICABLE FOR DIALYSIS PATIEN TS. Die Stamping Press Operator ID - PIAYA LHEPATIC FUNCTION [id number] 15:46:00 Test Item Value Reference Range Interpretation [...] Specimen slightly (test code = 347) hemolyzed Die Stamping Press Operator ID Celine MIR LPROTHROMBIN TIME/[id number] 15:33:00 Test Item Value Reference Range Interpretation Comments PROTIME (BEAKER) 12.0 seconds 11.9-14.2 (test code = 759) INR (BEAKER) (test 0.90 See_Comment [Automat ed message] code = 370) The system [employer] generated this result transmitted ref erence range: <=5.90. The reference range was not used to int erpret this result as normal/abnormal . RECOMMENDED COUMADIN/WARFARIN INR THERAPY RANGESSTANDARD DOSE: 2.0 - 3.0 Includes: PROPHYLAXIS for venous thrombosis, systemic embolization; TREATMENT for venous thrombosis and/or pulmonary embolus.HIGH RISK: Target INR is 2.5-3.5 for patients with mechanical heart valves.CBC W/PLT COUNT & AUTO [id number] 15:28:00 Test Item Value Reference Range Interpretation [...] PERCENT (BEAKER) (test code = 2801) HCV [id number] 23:07:07 Test Item Value Reference Range Interpretation Comments HCV Ab (test code = 45451-5) Negative HCV Semi-Quantitative (test code = 56738-3) [facility] A VIRUS ANTIBODY [id number] 22:56:04 Test Item Value Reference Range Interpretation Comments HAVM Negative Semi-Quantitative (test code = 31967-6) MARIBEL (test code = HAVAb IgM Interpretative MARIBEL) Information: Reactive greater than or equal to 1.2 Biotin has been reported to cause a negative bias, interpret results relative to patient's use of biotin. [facility] B CORE ANTIBODY [id number] 22:56:04 Test Item Value Reference Range Interpretation Comments HBCM Negative Semi-Quantitative (test code = 49586-6) MARIBEL (test code = Biotin has been reported MARIBEL) to cause a negative bias, interpret results relative to patient's use of biotin. [facility] B SURFACE [id number] 22:50:19 Test Item Value Reference Range Interpretation Comments HBsAg Semi-Quantitative (test code = Negative Negative 5195-3) [id number] 21:54:34 Test Item Value Reference Range Interpretation Comments FERRITIN (test code = 6850.0 ng/mL 18.0-464.0 H 1535086135) MARIBEL (test code = MARIBEL) Biotin has been reported to cause a negative bias, interpret results relative to patient's use of biotin. Lab Interpretation (test Abnormal code = 52666-7) [facility]CREAT[facility] [id number] 19:13:34 Test Item Value Reference Range Interpretation Comments CK (test code = 2534358861) 2920 U/L 33-194 H Lab Interpretation (test code = Abnormal 65119-6) [facility]MAGN[facility]IUM2021-[facility]-12 18:37:28 Test Item Value Reference Range Interpretation Comments MAGNESIUM (test code = 0596817412) 2.2 mg/dL 1.7-2.4 Lab Interpretation (test code = Normal 45895-6) [facility]PHOSPHORUS2021-08-12 18:37:28 Test Item Value Reference Range Interpretation Comments PHOSPHORUS (test code = 4953888669) 3.3 mg/dL 2.5-5.0 Lab Interpretation (test code = Normal 22579-6) [facility] HospitalLACTATE [id number] 18:28:57 Test Item Value Reference Range Interpretation Comments LDH (test code = 3178067167) 3128 U/L 300-600 H Lab Interpretation (test code = Abnormal 88896-4) [facility]CT [facility] PEL[facility] W [id number] 15:15:23 No acute intra-abdominal or pelvic abnormality. [...] uncomplicatedadministration of intravenous Omnipaque contrast. Coronal and sag ittalreconstructions were obtained. ?Auto mA and/or iterative reconstructionwere used to reduce radiation dose. FINDINGS: LOWER THORAX: Bibasal scattered groundglass and consolidative opacities areseen. No cardiomegaly. LIVER: No focal hepatic lesions. Normal contour. GALLBLADDER AND BILIARY TREE: No intra or extrahepatic biliary ductaldilation. Cholelithiasis. SPLEEN: Unremarkable. PANCREAS: No ductal dilatation or masses ADRENAL GLANDS: No adrenal lesions. KIDNEYS: No hydronephrosis, stones, or masses. Homogeneous and symmetricalenhancement. GI TRACT: No dilation or bowel wall thickening.The appen jose is normal.. PERITONEUM AND RETROPERITONEUM: No free air or fluid collection. LYMPH NODES: No intra-abdominal or pelvic lymph node enlargement. PELVIS/BLADDER: Bladder is fully distended with no wall thickening. VESSELS: Unremarkable. BONES AND SOFT TISSUES: No suspicious lytic or sclerotic bony les ions. [facility], Radiant Results Inft User - 01/18/2021 10:[address] ABDOMEN PELVIS W CONTRASTHISTORY: 40 years-old; Male; Nausea/vomiting COMPARISON: None.TECHNIQUE AND FINDINGS: Contiguous axial imaging from the level of the lungbases through the pubic symphysis was performed after the uncomplicatedadministration of intravenous Omnipaque contrast. Coronal and sagittalreconstructions were obtained. Auto mA and/or iterative reconstructionwereused to reduce radiation dose.FINDINGS:LOWER THORAX: Bibasal scattered [...] please refer to chest CT reportdone same day.I, Kahlil Newman MD., have reviewed this study and agree with the abovereport.[facility] PULMONARY [id number] 13:31:27 1. No evidence of acute or chronic pulmonary embolism through the level ofthe subsegmental branches. 2. Patchy bilateral mainly peripheral groundglass and consolidativeopacities consistent with the known diagnosis of COVID 19 pneumonia. Preliminary Report Dictated by Resident: Martinez Monte I, Leslie Aguayo MD., have reviewed this study and agree [...] coronal and sagittal MPR images were generatedand reviewed.. FINDINGS: [...] largest measure 1.5 cm in short axis,likely reactive. LUNGS AND PLEURA: Patchy areas of peripheral groundglass and consolidativeopacities are seen bilaterally, more pronounced at the lower lobes. Nopleural abnormality detected. VISUALIZED UPPER ABDOMEN: The included solid organs and hollow viscusappear within normal limits. OSSEOUS STRUCTURES AND SOFT TISSUES: No focal osseous [...] Corresponding axial, sagittal and coronal MIP images wer eperformed. Axial MIPs and coronal and sagittal MPR [...] right paratracheal, precarinal, bilateralhilar and infrahilar lymph nodes,the largest measure 1.5 cm in short axis,likely reactive.LUNGS AND PLEURA: Patchy areas of peripheral groundglass and consolidativeopacities are seen bilaterally, more pronounced at the lower lobes. Nopleural abnormality detected.VISUALIZED UPPER ABDOMEN: The included solid organs and hollow viscusappear within normal limits.OSSEOUS STRUCTURES AND SOFT TISSUES: No focal osseous lesions are detected.The soft tissues appear normal.IMPRESSION1. No evidence of acute or chronic pulmonary embolism throughthe level ofthe subsegmental branches.2. Patchy bilateral mainly peripheral groundglass and consolidativeopacities consistent with the known diagnosis of COVID 19 pneumonia.Preliminary Report Dictated by Resident: Leslie Moreira MD., have reviewed this study and agree with theabove report. [facility]. METABOLIC PANEL (61561)2021-01-18 12:12:28 Test Item Value Reference Range Interpretation Comments NA (test code = 131 mmol/L 135-145 L 0353574550) K (test code = 3.1 mmol/L 3.5-5.0 L 6419279140) CL (test code = 95 mmol/L 98-108 L 1493990621) CO2 TOTAL (test code = 25 mmol/L 23-31 4709198705) AGAP (test code = 2-16 4565586424) BUN (test code = 13 mg/dL 7-23 6233221835) GLUCOSE (test code = 124 mg/dL 70-110 H 3163748796) CREATININE (test code = 1.11 mg/dL 0.60-1.25 6367087611) TOTAL BILI (test code = 0.9 mg/dL 0.1-1.7 8892594545) CALCIUM (test code = 8.2 mg/dL 8.6-10.6 L 1057363502) T PROTEIN (test code = 6.9 g/dL 6.3-8.2 7170821472) ALBUMIN (test code = 3.7 g/dL 3.5-5.0 7058700042) ALK PHOS (test code = 121 U/L 34-122 6100164514) ALTv (test code = 428 U/L 5-50 H 1742-6) AST(SGOT) (test code = 638 U/L 13-40 H 3358909986) eGFR (test code = mL/min/1.73m2 2470049983) MARIBEL (test code = MARIBEL) Association of [...] tests). Lab Interpretation Abnormal (test code = 86807-4) [facility] WITH [id number] 12:08:54 Test Item Value Reference Range Interpretation [...] (test code = 36.8 fL 38.5-51.6 L 63081-2) RDW-CV (test code = 12.2 % 12.1-15.4 788-0) PLT (test code = See_Comment L [Automated 777-3) message] The sy stem which generated this result transmitted reference range : 150 - 328 10*3/ ?L. The reference r autumn was not used to interpret this result as normal/abnormal . MPV (test code = 11.0 fL 9.8-13.0 64997-3) IPF % (test code = 6.6 % 1.2-10.7 Platelet count 3284957676) measured by fluorescence method. NRBC/100 WBC (test See_Comment [Automat ed code = 7444363297) message] The system which generated this result transmitted reference range : 0.0 - 10.0 /100 WBCs. The refer ence range was not u sed to interpret th is result as normal/abnormal . NRBC x10^3 (test code <0.01 See_Comment [Auto mated = 6406397131) message] The s ystem which generated this result transmitted reference range : 10*3/?L. The reference range was not used to interpret this result as normal/abnormal . GRAN MAT (NEUT) % 67.2 % (test code = 770-8) IMM GRAN % (test code 0.30 % = 5915255867) LYMPH % (test code = 28.1 % 736-9) MONO % (test code = 4.1 % 5905-5) EOS % (test code = 0.0 % 713-8) BASO % (test code = 0.3 % 706-2) GRAN MAT x10^3(ANC) 2.61 10*3/uL 1.99-6.95 (test code = 9892120389) IMM GRAN x10^3 (test <0.03 0.00-0.06 code = 6859051359) LYMPH x10^3 (test code 1.09 10*3/uL 1.09-3.23 = 731-0) MONO x10^3 (test code 0.16 10*3/uL 0.36-1.02 L = 742-7) EOS x10^3 (test code = <0.03 0.06-0.53 L 711-2) BASO x10^3 (test code <0.03 0.01-0.09 = 704-7) Lab Interpretation Abnormal (test code = 77724-3) [facility] HospitalD-[id number] 12:05:45 Test Item Value Reference Interpretation Comments Range D-DIMER (test code = See_Comment H [Autom ated 6706612673) message] The system which generated this result [...] diagnosis. Lab Interpretation Abnormal (test code = 65616-0) [facility] HospitalUrinalysis2020-09-20 11:28:00 Test Item Value Reference Range Interpretation Comments APPEARANCE (test code = Clear Clear 6940842697) COLOR (test code = Yellow Yellow 1146776634) PH (test code = 4.8-8.0 0293897590) SP GRAVITY (test code = 1.003-1.030 8737275985) GLU U QUAL (test code = Normal Normal 2954143613) BLOOD (test code = Negative Negative 1893280506) KETONES (test code = Negative Negative 1571317552) PROTEIN (test code = Negative Negative 2887-8) UROBILIN (test code = Normal Normal 0534992837) BILIRUBIN (test code = Negative Negative 4384798543) NITRITE (test code = Negative Negative 3899199988) LEUK DALLAS (test code = Negative Negative 4026082403) RBC/HPF (test code = See_Comment [Autom ated message] 5704036349) The system [employer] generated this result transmitted ref erence range: 0 - 3 HP F. The reference range was not used to int erpret this result as normal/abnormal . WBC/HPF (test code = See_Comment [Autom ated message] 4663821554) The system [employer] generated this result transmitted ref erence range: 0 - 5 HP F. The reference range was not used to int erpret this result as normal/abnormal . BACTERIA (test code = Few Negative A 3277051239) MUCOUS (test code = Slight Negative LPF A 7993492648) Lab Interpretation (test Abnormal code = 05151-1) [facility] HospitalComplete Metabolic [id number] 11:19:00 Test Item Value Reference Range Interpretation Comments NA (test code = 136 mmol/L 135-145 0142026963) K (test code = 3.9 mmol/L 3.5-5 8408661104) CL (test code = 102 mmol/L 98-108 8877730138) CO2 TOTAL (test code = 25 mmol/L 23-31 7114067673) AGAP (test code = 2-16 4889379602) BUN (test code = 14 mg/dL 7-23 0635162640) GLUCOSE (test code = 120 mg/dL 70-110 H 9172009078) CREATININE (test code = 0.98 mg/dL 0.6-1.25 5257745979) TOTAL BILI (test code = 0.4 mg/dL 0.1-1.8 4972253462) CALCIUM (test code = 9.1 mg/dL 8.6-10.6 7514802232) T PROTEIN (test code = 7.2 g/dL 6.3-8.2 1740484287) ALBUMIN (test code = 4.0 g/dL 3.5-5 3309233441) ALK PHOS (test code = 75 U/L 34-122 6399087165) ALTv (test code = 37 U/L 5-50 1742-6) AST(SGOT) (test code = 25 U/L 13-40 9861512869) eGFR Calculation mL/min/1.73m2 (Non-) (test code = 6264161598) eGFR Calculation mL/min/1.73m2 () (test code = 6487769587) MARIBEL (test code = MARIBEL) Association of [...] tests). Lab Interpretation Abnormal (test code = 43602-4) [facility] HospitalLipase, [id number] 11:19:00 Test Item Value Reference Range Interpretation Comments LIPASE (test code = 3617032662) 85 U/L 0-220 Lab Interpretation (test code = Normal 84941-5) [facility] HospitalCB with [id number] 10:57:00 Test Item Value Reference Range Interpretation Comments WBC (test code = See_Comment H [Automated 9798-2) message] The sy stem which generated this result transmitted reference range : 4.20 - 10.70 10*3/?L. The reference range was not used to interpret this result as normal/abnormal . RBC (test code = See_Comment [Automated 607-8) message] The sy stem which generated this [...] (test code = 36.7 fL 38.5-51.6 L 67667-6) RDW-CV (test code = 11.9 % 12.1-15.4 L 788-0) PLT (test code = See_Comment [Automated 777-3) message] The sy stem which generated this result transmitted reference range : 150 - 328 10*3/ ?L. The reference r autumn was not used to interpret this result as normal/abnormal . MPV (test code = 9.4 fL 9.8-13 L 14575-0) NRBC/100 WBC (test See_Comment [Automat ed code = 9727740079) message] The system which generated this result transmitted reference range : 0.0 - 10.0 /100 WBCs. The refer ence range was not u sed to interpret th is result as normal/abnormal . NRBC x10^3 (test code <0.01 See_Comment [Auto mated = 7014665913) message] The s ystem which generated this result transmitted reference range : 10*3/?L. The reference range was not used to interpret this result as normal/abnormal . GRAN MAT (NEUT) % 62.7 % (test code = 770-8) IMM GRAN % (test code 0.40 % = 7676058005) LYMPH % (test code = 24.8 % 736-9) MONO % (test code = 7.5 % 5905-5) EOS % (test code = 3.9 % 713-8) BASO % (test code = 0.7 % 706-2) GRAN MAT x10^3(ANC) 7.23 10*3/uL 1.99-6.95 H (test code = 7250986315) IMM GRAN x10^3 (test 0.05 10*3/uL 0-0.06 code = 0394406599) LYMPH x10^3 (test code 2.86 10*3/uL 1.09-3.23 = 731-0) MONO x10^3 (test code 0.86 10*3/uL 0.36-1.02 = 742-7) EOS x10^3 (test code = 0.45 10*3/uL 0.06-0.53 711-2) BASO x10^3 (test code 0.08 10*3/uL 0.01-0.09 = 704-7) Lab Interpretation Abnormal (test code = 03885-5) [facility]XR [facility] 1 [id number] 04:15:59CHEST ONE VIEW HISTORY: ?Right-sided pain TECHNIQUE: ?AP view of the chest is obtained. FINDINGS: Lungs are clear. Heart size and mediastinal silhouette arenormal. No pleural effusion or pneumothorax is seen. No definite displaced rib fracture is seen in the visualized rib cage. CONCLUSIONS: No acute cardiopulmonary disease. [facility], Radiant Results Inft User - 10/04/2019 11:17 PM CDTCHEST ONE VIEWHISTORY: Right-sided painTECHNIQUE: AP view of the chest is obtained.FINDINGS: Lungs are clear. Heart sizeand mediastinal silhouette arenormal. No pleural effusion or pneumothorax is seen.No definite displaced rib fracture is seen in the visualized rib cage.CONCLUSIONS: No acute cardiopulmonary disease.[facility] HospitalaPTT2020-04-28 04:06:00 Test Item Value Reference Range Interpretation Comments APTT Patient (test See_Comment [Automat ed code = 3173-2) message] The system which generated this result transmitted reference range : 23 - 38 Seconds . The reference range was not used to interpr et this result as normal/abnormal . MARIBEL (test code = MARIBEL) The [facility] patient population mean normal value for aPTT is 30 seconds. Lab Interpretation Normal (test code = 58094-6) [facility] HospitalProthrombin Time (PT) / [id number] 04:06:00 Test Item Value Reference Range Interpretation [...] tions. Lab Interpretation (test Normal code = 22369-0) [facility] HospitalUrinalysis2020-04-28 04:02:00 Test Item Value Reference Range Interpretation Comments APPEARANCE (test code = Clear Clear 7552234979) COLOR (test code = Straw Yellow A 1404156566) PH (test code = 4.8-8.0 5728060163) SP GRAVITY (test code = 1.003-1.030 4718272688) GLU U QUAL (test code = Normal Normal 9137842694) BLOOD (test code = Negative Negative 9896934313) KETONES (test code = Negative Negative 1532339363) PROTEIN (test code = Negative Negative 2887-8) UROBILIN (test code = 2.0 mg/dL Normal A 6676951441) BILIRUBIN (test code = Negative Negative 7703690011) NITRITE (test code = Negative Negative 1461033845) LEUK DALLAS (test code = Negative Negative 5377073203) RBC/HPF (test code = <1 See_Comment [Autom ated message] 6367358186) The system [employer] generated this result transmit papito reference range : 0 - 3 HPF. The refe rence range was not u sed to interpret th is result as normal/abnormal . WBC/HPF (test code = See_Comment [Autom ated message] 0001782994) The system [employer] generated this result transmit papito reference range : 0 - 5 HPF. The refe rence range was not u sed to interpret th is result as normal/abnormal . BACTERIA (test code = Few Negative A 1027264417) MUCOUS (test code = Slight Negative LPF A 9246595881) SQ EPITH (test code = <1 HPF 3865403453) Lab Interpretation (test Abnormal code = 61843-4) [facility] (NA, K, CL, CO2, GLUCOSE, BUN, CREATININE, CA)2019-10-05 04:00:00 Test Item Value Reference Range Interpretation Comments NA (test code = 139 mmol/L 135-145 2945182175) K (test code = 3.8 mmol/L 3.5-5 4101854157) CL (test code = 104 mmol/L 98-108 3080555591) CO2 TOTAL (test code = 28 mmol/L 23-31 0621853996) AGAP (test code = 2-16 5546054546) BUN (test code = 12 mg/dL 7-23 4489106298) GLUCOSE (test code = 105 mg/dL 70-110 2190268363) CREATININE (test code 0.85 mg/dL 0.6-1.25 = 9797727394) CALCIUM (test code = 9.5 mg/dL 8.6-10.6 7159666900) eGFR Calculation mL/min/1.73m2 (Non-) (test code = 7722171562) eGFR Calculation mL/min/1.73m2 () (test code = 2238058854) MARIBEL (test code = MARIBEL) Association of [...] or urine or abnormalities in imaging tests). [facility] HospitalHepatic Function Panel (ALB, T.PRO, BILI T, BU/BC, ALT, AST, ALK PHOS)2019-10-05 04:00:00 Test Item Value Reference Range Interpretation Comments TOTAL BILI (test code = 1860249812) 0.6 mg/dL 0.1-1.1 BILI UNCON (test code = 9508921137) 0.7 mg/dL 0.1-1.1 BILI CONJ (test code = 4913424079) 0.0 mg/dL 0-0.3 T PROTEIN (test code = 1254904263) 7.9 g/dL 6.3-8.2 ALBUMIN (test code = 5394684553) 4.6 g/dL 3.5-5 ALK PHOS (test code = 7914508947) 81 U/L 34-122 ALTv (test code = 1742-6) 55 U/L 5-50 H AST(SGOT) (test code = 0106361809) 36 U/L 13-40 Lab Interpretation (test code = Abnormal 02955-5) [facility] HospitalLipase [id number] 04:00:00 Test Item Value Reference Range Interpretation Comments LIPASE (test code = 3646333773) 95 U/L 0-220 Lab Interpretation (test code = Normal 89003-0) [facility] HospitalCREATINE [id number] 04:00:00 Test Item Value Reference Range Interpretation Comments CK (test code = 4256717760) 255 U/L 33-194 H Lab Interpretation (test code = Abnormal 53197-8) [facility] HospitalCB WITH [id number] 03:53:00 Test Item Value Reference Range Interpretation Comments WBC (test code = See_Comment [Automated 2890-2) message] The sy stem which generated this result transmitted reference range : 4.20 - 10.70 10*3/?L. The reference range was not used to interpret this result as normal/abnormal . RBC (test code = See_Comment [Automated 158-8) message] The sy stem which generated this [...] (test code = 36.7 fL 38.5-51.6 L 77749-8) RDW-CV (test code = 11.7 % 12.1-15.4 L 788-0) PLT (test code = See_Comment [Automated 777-3) message] The sy stem which generated this result transmitted reference range : 150 - 328 10*3/ ?L. The reference r autumn was not used to interpret this result as normal/abnormal . MPV (test code = 9.5 fL 9.8-13 L 05003-1) NRBC/100 WBC (test See_Comment [Automat ed code = 1272909357) message] The system which generated this result transmitted reference range : 0.0 - 10.0 /100 WBCs. The refer ence range was not u sed to interpret th is result as normal/abnormal . NRBC x10^3 (test code <0.01 See_Comment [Auto mated = 1953081464) message] The s ystem which generated this result transmitted reference range : 10*3/?L. The reference range was not used to interpret this result as normal/abnormal . GRAN MAT (NEUT) % 58.2 % (test code = 770-8) IMM GRAN % (test code 0.50 % = 0818484829) LYMPH % (test code = 29.9 % 736-9) MONO % (test code = 7.9 % 5905-5) EOS % (test code = 2.9 % 713-8) BASO % (test code = 0.6 % 706-2) GRAN MAT x10^3(ANC) 5.71 10*3/uL 1.99-6.95 (test code = 5701672326) IMM GRAN x10^3 (test 0.05 10*3/uL 0-0.06 code = 1735323050) LYMPH x10^3 (test code 2.94 10*3/uL 1.09-3.23 = 731-0) MONO x10^3 (test code 0.78 10*3/uL 0.36-1.02 = 742-7) EOS x10^3 (test code = 0.28 10*3/uL 0.06-0.53 711-2) BASO x10^3 (test code 0.06 10*3/uL 0.01-0.09 = 704-7) Lab Interpretation Abnormal (test code = 13363-8) [facility] HospitalXR [id number] 03:50:121. Paucity of gas in the small [...] No free air is noted under the diaphragm. [facility], Radiant Results Inft User - 10/04/2019 10:51 PM CDTEXAM: KUBHISTORY: Abdomen painTECHNIQUE:KUB radiograph is obtained.FINDINGS:Examination is limited in quality secondary to patient's bodyhabitus. There is paucity of gas in the small bowel. Colon is outlined bythe abdomen. No definite radiopaque calcifications are seen superimposedover the renal shadows. No free airis noted under the diaphragm.IMPRESSION1. Paucity of gas in the small bowel can be seen with fluid-filled loops ofbowel.[facility]
[2022-05-20] MEDS ORDERED: NA CHLORIDE 0.9% 1,000 ML ONE (10:22)
[2022-05-20 10:23] LABS: Absolute Lymphocytes (CBC) 2.9 K/uL (0.7-4.9); Hematocrit 45.4 % (39.6-49.0); Lymphocytes % 30.9 % (15.3-44.8); MCV 84.3 fL (80-100); MPV 7.3 fL (7.6-11.3); RBC Red Blood Cell Count 5.38 M/uL (4.33-5.43)
[2022-05-20 10:26] LABS: Urine Blood Negative (Negative); Urine Glucose Negative (Negative); Urine Protein Negative (Negative)
[2022-05-20 11:13] LABS: Albumin 3.8 g/dL (3.4-5.0); Bilirubin Total 0.7 mg/dL (0.2-1.0); Protein, Total 7.9 g/dL (6.4-8.2)
--- NOTE | 2022-05-20 12:14 | RAD REPORT ---
EXAM DESCRIPTION: RAD - Lumbar Spine 3 Views - 05/20/2022 11:50 am CLINICAL HISTORY: Back pain FINDINGS: No fracture or dislocation is seen. Moderate narrowing L5-S1. Mild spondylosis main lumbar spine. IVC filter in place Left iliac stent present
--- NOTE | 2022-05-20 12:34 | ER ---
Nurse's Notes [facility] Name: Milton Reeves Age: 41 yrs Sex: Male : 1980 Arrival Date: 05/20/2022 Time: 09:18 Bed 10 Private MD: Ghanshyam Truong Diagnosis: Low back pain Presentation: 05/20 10:03 Chief complaint: Patient states: pain in lower back, and i feel misty bad - but i dont [facility] have cough or fever, i cant lay comfortable and I am disabled so there is so many things wrong with me and i wanted to come and see whats going on ... it hemphill a little when i pee and i havent been peeing as much as normal. Coronavirus screen: Vaccine status: Patient reports receiving the 2nd dose of the covid vaccine. Client denies travel out of the [place] in the last 14 days. Ebola Screen: Patient negative for fever greater than or equal to 101.5 degrees Fahrenheit, and additional compatible Ebola Virus Disease symptoms Patient denies exposure to infectious person. Patient denies travel to an Ebola-affected area in the 21 days before illness onset. Initial Sepsis Screen: Does the patient meet any 2 criteria? No. Patient's initial sepsis screen is negative. Does the patient have a suspected source of infection? No. Patient's initial sepsis screen is negative. Risk Assessment: Do you want to hurt yourself or someone else? Patient reports no desire to harm self or others. 10:03 Method Of Arrival: Ambulatory [facility] 10:03 Acuity: [facility] 3 [facility] 12:55 Onset of symptoms. Triage Assessment: 10:07 General: Appears uncomfortable, obese, Behavior is calm, cooperative, appropriate for [facility] age. Pain: Complains of pain in back. Musculoskeletal: Circulation, motion, and sensation intact. Capillary refill < 3 seconds. Historical: - Allergies: 10:07 No Known Allergies; jh5 - PMHx: 10:07 Depressive disorder; Hypertensive disorder; DVT; jh5 - Immunization history:: Adult Immunizations up to date. - Social history:: Smoking status: Patient/guardian denies using tobacco, the patient reports quitting approximately 3.5 years ago. Screenin:32 Abuse screen: Denies threats or abuse. Denies injuries from another. Nutritional ld1 screening: No deficits noted. Tuberculosis screening: No symptoms or risk factors identified. Fall Risk No fall in past 12 months (0 pts). Assessment: 10:32 Reassessment: See triage assessment. ld1 Vital Signs: 10:03 BP 168 / 120; Pulse 88; Resp 16; Temp 98.6; Pulse Ox 98% ; Weight 129.27 kg; Height 5 [facility] ft. 11 in. (180.34 cm); Pain 7/10; 10:32 BP 161 / 104; Pulse 84; Resp 18; Pulse Ox 99% on R/A; ld1 12:54 BP 142 / 98; Pulse 87; Resp 16; Pulse Ox 97% on R/A; Pain 4/10; iw 10:03 Body Mass Index 39.75 (129.27 kg, 180.34 cm) [facility] ED Course: 09:18 Patient arrived in ED. mr 09:18 Ghanshyam Truong DO is Private Physician. mr 09:23 Dustin Paz PA is PHCP. [facility] 09:23 Itz Greene DO is Attending Physician. [facility] 10:07 Triage completed. [facility] 10:07 Arm band placed on right wrist. [facility] 10:14 CBC with Diff Sent. [facility] 10:14 CMP Sent. [facility] 10:20 Xiomy Cormier, RN is Primary Nurse. ld1 10:32 Patient has correct armband on for positive identification. Placed in gown. Bed in low ld1 position. Call light in reach. Side rails up X2. Pulse ox on. NIBP on. Door closed. Noise minimized. Warm blanket given. 10:32 No provider procedures requiring assistance completed. Inserted saline lock: 20 gauge ld1 in right antecubital area, using aseptic technique. 11:48 Lumbar Spine (3 Views) XRAY In Process Unspecified. EDMS 12:01 COVID-19/FLU A+B Sent. ld1 12:33 Ghanshyam Truong DO is Referral Physician. [facility] 12:54 IV discontinued, intact, bleeding controlled, No redness/swelling at site. Pressure iw dressing applied. Administered Medications: 10:20 Drug: NS 0.9% 1000 ml Route: IV; Rate: 1 bolus; Site: right antecubital; ld1 12:34 Drug: Valium (diazepam) 2 mg Route: IVP; Site: right antecubital; em6 12:54 Follow up: Response: No adverse reaction; Pain is decreased iw 12:34 Drug: Ketorolac 30 mg Route: IVP; Site: right antecubital; em6 12:54 Follow up: Response: No adverse reaction; Pain is decreased iw Medication: 10:32 VIS not applicable for this client. ld1 Outcome: 12:33 Discharge ordered by MD. lanier 12:55 Discharged to home ambulatory, with family. iw 12:55 Condition: good 12:55 Discharge instructions given to patient, family, Instructed on discharge instructions, follow up and referral plans. medication usage, Demonstrated understanding of instructions, follow-up care, medications, Prescriptions given X 1. 12:55 Patient left the ED. iw Signatures: Dispatcher [employer] EDMS Dustin Paz PA PA jmm Rivera, Mary Susana Venegas, RN RN iw Xiomy Cormier RN RN ld1 Anum Douglass RN RN 5 Sandra Buitrago RN RN em6 Corrections: (The following items were deleted from the chart) 12:54 12:54 BP 142 / 98; Pulse 87bpm; Resp 16bpm; Pulse Ox 97% RA; iw iw
--- NOTE | 2022-05-20 12:34 | EDPHYS ---
Physician Documentation [facility] Name: Milton Reeves Age: 41 yrs Sex: Male : 1980 Arrival Date: 05/20/2022 Time: 09:18 Bed 10 Private MD: [facility] ED Physician Itz Greene HPI: 05/20 11:13 This 41 yrs old Male presents to ER via Ambulatory with complaints of Back Pain. jmm 11:13 The patient presents with pain that is acute. Onset: The symptoms/episode jmm began/occurred gradually. The pain does not radiate. Associated signs and symptoms: Pertinent positives:. This is a 41 year old male with a history of depression, htn that presents to the ED with complaints of lower back pain. Denies injury. Patient states he was hospitalized for acute kidney injury last month that was attributed to medication overuse. Patient also complains of body aches. Denies fever, vomiting, abdominal pain. . Historical: - Allergies: 10:07 No Known Allergies; jh5 - PMHx: 10:07 Depressive disorder; Hypertensive disorder; DVT; [facility] - Immunization history:: Adult Immunizations up to date. - Social history:: Smoking status: Patient/guardian denies using tobacco, the patient reports quitting approximately 3.5 years ago. ROS: 11:13 Constitutional: Positive for body aches. jmm 11:13 Respiratory: Negative for cough, shortness of breath. 11:13 Abdomen/GI: Negative for abdominal pain. 11:13 Back: Positive for pain with movement. 11:13 All other systems are negative. Exam: 11:13 Constitutional: This is a well developed, well nourished patient who is awake, alert, jmm and in no acute distress. Head/Face: atraumatic. Eyes: EOMI, no conjunctival erythema appreciated ENT: Moist Mucus Membranes Neck: Trachea midline, Supple Chest/axilla: Normal chest wall appearance and motion. Cardiovascular: Regular rate and rhythm. No edema appreciated Respiratory: Normal respirations, no respiratory distress appreciated Abdomen/GI: Non distended 11:13 Skin: General appearance color normal MS/ Extremity: Moves all extremities, no obvious deformities appreciated, no edema noted to the lower extremities Neuro: Awake and alert Psych: Behavior is normal, Mood is normal, Patient is cooperative and pleasant 11:13 Back: muscle spasm, is appreciated in the right low back. Vital Signs: 10:03 BP 168 / 120; Pulse 88; Resp 16; Temp 98.6; Pulse Ox 98% ; Weight 129.27 kg; Height 5 jh5 ft. 11 in. (180.34 cm); Pain 7/10; 10:32 BP 161 / 104; Pulse 84; Resp 18; Pulse Ox 99% on R/A; ld1 12:54 BP 142 / 98; Pulse 87; Resp 16; Pulse Ox 97% on R/A; Pain 4/10; iw 10:03 Body Mass Index 39.75 (129.27 kg, 180.34 cm) 5 MDM: 09:33 Patient medically screened. [facility] 12:32 Data reviewed: vital signs, nurses notes. Counseling: I had a detailed discussion with [facility] the patient and/or guardian regarding: the historical points, exam findings, and any diagnostic results supporting the discharge/admit diagnosis, lab results, radiology results, the need for outpatient follow up, to return to the emergency department if symptoms worsen or persist or if there are any questions or concerns that arise at home. ED course: Labs unremarkable. PE findings consistent with muscle spasm. Patient advised to follow up with pcp and otherwise given strict return precautions. patient understood and agrees with the plan of care. . 05/20 09:33 Order name: CBC with Diff; Complete Time: 10:24 [facility] 05/20 09:33 Order name: CMP; Complete Time: 11:23 [facility] 05/20 10:26 Order name: Urine Dipstick-Ancillary; Complete Time: 10:26 [facility] 05/20 11:02 Order name: COVID-19/FLU A+B; Complete Time: 12:48 [facility] 05/20 11:23 Order name: Lumbar Spine (3 Views) XRAY; Complete Time: 12:16 [facility] 05/20 09:33 Order name: IV Saline Lock; Complete Time: 10:14 [facility] 05/20 09:33 Order name: Labs collected and sent; Complete Time: 10:14 [facility] 05/20 09:33 Order name: Urine Dipstick-Ancillary (obtain specimen); Complete Time: 10:26 [facility] Administered Medications: 10:20 Drug: NS 0.9% 1000 ml Route: IV; Rate: 1 bolus; Site: right antecubital; ld1 12:34 Drug: Valium (diazepam) 2 mg Route: IVP; Site: right antecubital; em6 12:54 Follow up: Response: No adverse reaction; Pain is decreased iw 12:34 Drug: Ketorolac 30 mg Route: IVP; Site: right antecubital; em6 12:54 Follow up: Response: No adverse reaction; Pain is decreased iw Disposition: 18:22 Co-signature as Attending Physician, Itz Greene DO I was immediately available onsite ms3 in the emergency department for consultation in the care of the patient. Disposition Summary: 05/20/22 12:33 Discharge Ordered Location: Home jmm Condition: Stable jmm Diagnosis - Low back pain jmm Followup: jmm - With: Ghanshyam Truong DO - When: 2 - 3 days - Reason: Recheck today's complaints, Continuance of care, Re-evaluation by your physician Discharge Instructions: - Discharge Summary Sheet jmm - Acute Back Pain, Adult jmm - Muscle Cramps and Spasms jmm Forms: - Medication Reconciliation Form jmm - Thank You Letter jmm - Antibiotic Education jmm - Prescription Opioid Use jmm Prescriptions: - Zanaflex 4 mg Oral Tablet - take 1 tablet by ORAL route every 8 hours As needed; 20 tablet; Refills: 0, [facility] Product Selection Permitted Signatures: Dispatcher [employer] Dustin James PA PA jmm Sims, Marcus, DO DO ms3 Xiomy Cormier RN RN ld1 Anum Douglass RN RN jh5 Sandra Buitrago RN RN em6 Susana Venegas RN iw
[2022-05-20] MEDS ORDERED: DIAZEPAM 10 MG/2 ML INJ SYRINGE ONE (12:35)
[2022-05-20] MEDS ORDERED: KETOROLAC 30 MG/ML INJ ONE (12:36)
[2022-05-20 12:45] LABS: SARS-COV-2 RT PCR NEGATIVE (NEGATIVE)
[2022-05-20 13:09] VITALS: TEMP 98.6
[2022-05-20 13:12] VITALS: BP 142/98; O2SAT 97
== END 2022-05-20 12:55 | disposition home or self-care (01) ==
LOC: ER 09:15
DX: M54.50 Low back pain, unspecified (principal); Z20.822 Contact with and (suspected) exposure to COVID-19; I10 Essential (primary) hypertension
CPT/HCPCS: 85025; 36415; 81003; 80053; 0240U; 72100; J3360; J7030; 96374; 96375; 99284

== ENCOUNTER → 2023-06-30 | Emergency (ER) | payer BC ==
[~2023-06-30] MED LIST: ASPIRIN 81 MG CHEWABLE TABLET ONE; MORPHINE 4 MG/ML SYR ONE; NITROGLYCERIN 0.4 MG/TAB SL ONE; ONDANSETRON 4 MG/2 ML VIAL ONE
--- NOTE | 2023-06-30 14:54 | RAD REPORT ---
EXAM DESCRIPTION: Shari Single View06/30/2023 2:27 pm CLINICAL HISTORY: CHEST PAIN COMPARISON: Chest Pa And Lat (2 Views) dated 09/27/2018 TECHNIQUE: Portable AP view of the chest. FINDINGS: The lungs are clear. No pneumothorax or effusion. The cardiomediastinal contours are unre markable. IMPRESSION: No acute cardiopulmonary process.
[2023-06-30 16:28] LABS: Absolute Lymphocytes (CBC) 3.8 K/uL (0.7-4.9); Hematocrit 46.3 % (39.6-49.0); Lymphocytes % 28.1 % (15.3-44.8); MCV 84.1 fL (80-100); MPV 7.5 fL (7.6-11.3); Platelets 318 thou/uL (152-406)
[2023-06-30 17:15] LABS: Protime INR 1.07
[2023-06-30 17:58] LABS: ALT/SGPT 34 U/L (16-61); AST/SGOT 14 U/L (15-37); Albumin 3.7 g/dL (3.4-5.0); Alkaline Phosphatase 117 U/L (45-117); BUN Blood Urea Nitrogen 12 mg/dL (7-18); Bicarbonate 25 mEq/L (21-32); Bilirubin Total 0.3 mg/dL (0.2-1.0); Glomerular Filtration Rate 101 ml/min (=/>90); Glucose Level 100 mg/dL (74-106); Magnesium 2.2 mg/dL (1.6-2.4); NT PRO-BNP 13 pg/mL (<125); Potassium 3.5 mEq/L (3.5-5.1); Protein, Total 7.9 g/dL (6.4-8.2); Sodium Level 135 mEq/L (136-145); Troponin High Sensitivity 3.9 pg/mL (<58.9)
[2023-06-30 18:02] LABS: Bilirubin Direct < 0.1 mg/dL (0-0.2); Bilirubin Indirect, Calculated ND mg/dL (0.2-0.8)
--- NOTE | 2023-06-30 19:23 | RAD REPORT ---
EXAM DESCRIPTION: CT - Chest For Pe Angio - 06/30/2023 6:37 pm CLINICAL HISTORY: CHEST PAIN COMPARISON: No comparisons TECHNIQUE: Thin axial CT images of the chest were obtained following administration of 100 mL Isovue 370 IV contrast. Multiplanar reconstructions, and maximum intensity projection reconstructions were generated and reviewed. Exam utilizes a protocol for optimal evaluation of pulmonary arterial tree. All CT scans are performed using dose optimization technique as appropriate and may include automated exposure control or mA/KV adjustment according to patient size. FINDINGS: Pulmonary arteries are normal. No emboli or other suspicious finding. No acute or signific ant aorta findings. No mass or infiltrate in the lung parenchyma. No pleural thickening or pleural effusion. No pneumotho rax. No abnormal mediastinal or hilar masses or lymphadenopathy seen. No chest wall mass or abnormal axill iary lymphadenopathy. IMPRESSION: No evidence of acute central pulmonary emboli. Negative CT scan of the chest for other significant findings.
--- NOTE | 2023-06-30 19:43 | EDPHYS ---
Physician Documentation [facility] Name: Milton Reeves Age: 42 yrs Sex: Male : 1980 Arrival Date: 06/30/2023 Time: 13:38 Bed 12 Private MD: [facility] ED Physician Vance Mcnamara HPI: 06/30 14:19 This 42 yrs old Male presents to ER via Ambulatory with complaints of Chest Pain. sb4 14:19 The patient or guardian reports chest pain that is located primarily in the substernal sb4 area. Onset: 4 day(s) ago, and became worse today. The pain radiates to the left arm, left jaw. Associated signs and symptoms: Pertinent positives: dizziness, lightheadedness, nausea, palpitations. The chest pain is described as a heaviness. Duration: The patient or guardian reports multiple episodes. Modifying factors: The symptoms are alleviated by nothing. the symptoms are aggravated by nothing. The patient has not experienced similar symptoms in the past. Historical: - Allergies: 13:56 No Known Allergies; ld1 - Home Meds: 13:54 Xarelto oral [Active]; ld1 - PMHx: 13:54 depressive disorder; DVT; Hypertensive disorder; ld1 - PSHx: 13:54 knee; ld1 - Immunization history:: Adult Immunizations up to date. - Social history:: Smoking status: Patient denies any tobacco usage or history of. Patient/guardian denies using alcohol. ROS: 14:19 Constitutional: Negative for fever, chills, and weight loss, sb4 14:19 Cardiovascular: Positive for chest pain, 14:19 All other systems are negative, Exam: 14:19 Constitutional: This is a well developed, well nourished patient who is awake, alert, sb4 and in no acute distress. Head/Face: Normocephalic, atraumatic. Eyes: Extra-ocular motions intact. Periorbital areas with no swelling, redness, or edema. ENT: Mucous membranes moist. Chest/axilla: Normal chest wall appearance and motion. Nontender with no deformity. No lesions are appreciated. Cardiovascular: Regular rate and rhythm with a normal S1 and S2. Respiratory: Lungs have equal breath sounds bilaterally, clear to auscultation and percussion. No rales, rhonchi or wheezes noted. No increased work of breathing, no retractions or nasal flaring. Abdomen/GI: Soft, non-tender, no distension. Skin: Warm, dry with normal turgor. Normal color with no rashes, no lesions, and no evidence of cellulitis. MS/ Extremity: Pulses equal, no cyanosis. Neurovascular intact. Full, normal range of motion. Neuro: Awake and alert, GCS 15, oriented to person, place, time, and situation. Motor strength 5/5 in all extremities. Sensory grossly intact. Vital Signs: 13:55 BP 155 / 95; Pulse 99; Resp 18; Temp 97.9(TE); Pulse Ox 96% on R/A; Weight 127.01 kg; ld1 Height 5 ft. 11 in. ; Pain 8/10; 17:26 BP 130 / 86; Pulse 76; Resp 16 S; Pulse Ox 100% on R/A; kc6 19:58 BP 121 / 76; Pulse 71; ap3 13:55 Body Mass Index 39.05 (127.01 kg, 180.34 cm) ld1 13:55 Pain Scale: Adult ld1 MDM: 13:54 Patient medically screened. sb4 14:19 Differential diagnosis: abnormal EKG, acute myocardial infarction, anxiety, chest wall sb4 pain, costochondritis, esophagitis, pancreatitis, pleurisy, pneumonia, stable angina, unstable angina. 18:07 The patient was given aspirin in the Emergency Department. Scoring Tools HEART Score: sb4 History: ECG: Age: Risk Factors: > or = 3 Risk factors for atherosclerotic disease (2), Troponin: Total Score = 3. 19:41 Data reviewed: vital signs, nurses notes, lab test result(s), EKG, radiologic studies, sb4 and as a result, I will discharge patient. Consideration of Admission/Observation Escalation of care including admission/observation considered. Historians other than the Patient: Spouse/Significant Other: . Care significantly affected by the following chronic conditions: Hypertension, DVT. Counseling: I had a detailed discussion with the patient and/or guardian regarding the historical points, exam findings, and any diagnostic results supporting the discharge/admit diagnosis, the presence of at least one elevated blood pressure reading (>120/80) during this emergency department visit, lab results, radiology results, the need for outpatient follow up, to return to the emergency department if symptoms worsen or persist or if there are any questions or concerns that arise at home. Special discussion: Based on the patient's history, exam, and Dx evaluation, there is no indication for emergent intervention or inpatient Tx. It is understood by the patient/guardian that if the Sx's persist or worsen they need to return immediately for re-evaluation. ED course: discussed at lengths results with patients and admission vs going home. patient prefers to go home, will return with any worsening symptoms. I feel comfortable sending him home. CP has been going for 4 days, trop is reassuring. CT PE is negative. 06/30 14:03 Order name: Basic Metabolic Panel; Complete Time: 18:03 06/30 14:03 Order name: CBC with Diff; Complete Time: 16:32 [facility] 06/30 14:03 Order name: LFT's; Complete Time: 18:03 [facility] 06/30 14:03 Order name: Magnesium; Complete Time: 18:03 [facility] 06/30 14:03 Order name: NT PRO-BNP; Complete Time: 18:03 06/30 14:03 Order name: PT-INR; Complete Time: 17:17 06/30 14:03 Order name: Troponin HS; Complete Time: 18:03 [facility] 06/30 14:03 Order name: XRAY Chest (1 view); Complete Time: 14:55 06/30 18:04 Order name: CT Chest For PE Angio; Complete Time: 19:25 06/30 14:03 Order name: EKG; Complete Time: 14:03 06/30 14:03 Order name: Cardiac monitoring; Complete Time: 16:12 06/30 14:03 Order name: EKG - Nurse/Tech; Complete Time: 16:12 06/30 14:03 Order name: IV Saline Lock; Complete Time: 16:12 [facility] 06/30 14:03 Order name: Labs collected and sent; Complete Time: 16:12 06/30 14:03 Order name: O2 Per Protocol; Complete Time: 16:12 06/30 14:03 Order name: O2 Sat Monitoring; Complete Time: 16:12 06/30 16:35 Order name: Labs - recollect needed: recollect light green or 2 pedi tops; Complete bd Time: 17:23 EC:12 Rate is 76 beats/min. Rhythm is regular, Normal Sinus Rhythm. QRS [place] is Normal. [place] sb4 interval is normal at 158 msec. QRS interval is normal at 106 msec. QT interval is normal at 380 msec. No Q waves. T waves are Normal. No ST changes noted. Clinical impression: Normal ECG and No evidence of ischemia. Interpreted by me. Reviewed by me. Administered Medications: 16:12 Drug: Aspirin PO 162 mg PO once Route: PO; kc6 17:23 Follow up: Response: No adverse reaction kc6 16:12 Drug: Nitroglycerin Sublingual 0.4 mg Sublingual once; every five minute if needed x3 kc6 Route: Sublingual; 20:00 Follow up: Response: No adverse reaction ap3 18:54 Drug: morphine IVP or IV 4 mg IVP once over 4 mins Route: IVP; Infused Over: 4 mins; kc6 Site: right forearm; 20:00 Follow up: Response: No adverse reaction; Pain is decreased; RASS: Alert and Calm (0) ap3 18:54 Drug: Ondansetron IVP 4 mg IVP once; over 2 minutes Route: IVP; Site: right forearm; kc6 19:59 Follow up: Response: No adverse reaction; Nausea is decreased ap3 Disposition Summary: 06/30/23 19:43 Discharge Ordered Notes: Location: Home sb4 Problem: new sb4 Symptoms: have improved sb4 Condition: Stable sb4 Diagnosis - Chest pain, unspecified sb4 Followup: sb4 - With: Ghanshyam Truong, DO - When: Tomorrow - Reason: Recheck today's complaints, Re-evaluation by your physician Discharge Instructions: - Discharge Summary Sheet sb4 - Nonspecific Chest Pain, Adult, [id number] sb4 Forms: - Medication Reconciliation Form sb4 - Thank You Letter sb4 - Antibiotic Education sb4 - Prescription Opioid Use sb4 - Patient Portal Instructions sb4 - Leadership Thank You Letter sb4 Signatures: Dispatcher [employer] Patricia You Lauren RN RN ld1 Lisa Caldwell RN RN kc6 Johanne Lemos PA-C PAAnne Marie sb4 Laine Morrison RN ap3 Corrections: (The following items were deleted from the chart) 13:55 13:54 Allergies: Xarelto; ld1 ld1
--- NOTE | 2023-06-30 19:43 | ER ---
Nurse's Notes [facility] Name: Milton Reeves Age: 42 yrs Sex: Male : 1980 Arrival Date: 06/30/2023 Time: 13:38 Bed 12 Private MD: Ghanshyam Truong Diagnosis: Chest pain, unspecified Presentation: 06/30 13:55 Chief complaint: Patient states: Chest pain X 4 days. Coronavirus screen: At this time, ld1 the client does not indicate any symptoms associated with coronavirus-19. Ebola Screen: No symptoms or risks identified at this time. Risk Assessment: Do you want to hurt yourself or someone else? Patient reports no desire to harm self or others. Onset of symptoms was June 30, 2023. 13:55 Method Of Arrival: Ambulatory ld1 13:55 Acuity: HENRY 3 ld1 19:59 Initial Sepsis Screen: Does the patient meet any 2 criteria? No. Patient's initial ap3 sepsis screen is negative. Does the patient have a suspected source of infection? No. Patient's initial sepsis screen is negative. Triage Assessment: 13:55 General: Appears in no apparent distress. uncomfortable, Behavior is calm, cooperative, ld1 appropriate for age. Pain: Complains of pain in chest Pain does not radiate. Pain currently is 8 out of 10 on a pain scale. Quality of pain is described as sharp, shooting, Pain began 2-3 days ago. Is intermittent. EENT: No signs and/or symptoms were reported regarding the EENT system. Neuro: Level of Consciousness is awake, alert, obeys commands, Oriented to person, place, time, situation. Cardiovascular: Capillary refill < 3 seconds Patient's skin is warm and dry. Respiratory: Airway is patent Respiratory effort is even, unlabored. GI: Abdomen is round non-distended. : No signs and/or symptoms were reported regarding the genitourinary system. Derm: No signs and/or symptoms reported regarding the dermatologic system. Musculoskeletal: No signs and/or symptoms reported regarding the musculoskeletal system. Historical: - Allergies: 13:56 No Known Allergies; ld1 - Home Meds: 13:54 Xarelto oral [Active]; ld1 - PMHx: 13:54 depressive disorder; DVT; Hypertensive disorder; ld1 - PSHx: 13:54 knee; ld1 - Immunization history:: Adult Immunizations up to date. - Social history:: Smoking status: Patient denies any tobacco usage or history of. Patient/guardian denies using alcohol. Screenin:00 [facility] ED Fall Risk Assessment (Adult) History of falling in the last 3 months, kc6 including since admission No falls in past 3 months (0 pts) Confusion or Disorientation No (0 pts) Intoxicated or Sedated No (0 pts) Impaired Gait No (0 pts) Mobility Assist Device Used No (0 pt) Altered Elimination No (0 pt) Score/Fall Risk Level 0 - 2 = Low Risk. Abuse screen: Denies threats or abuse. Denies injuries from another. Nutritional screening: No deficits noted. Tuberculosis screening: No symptoms or risk factors identified. Assessment: 16:00 General: Appears in no apparent distress. comfortable, well groomed, well developed, kc6 Behavior is calm, cooperative, appropriate for age. Pain: Complains of pain in chest. Neuro: Level of Consciousness is awake, alert, obeys commands, Oriented to person, place, time, situation, Appropriate for age. Cardiovascular: Reports chest pain, Heart tones S1 S2 present Capillary refill < 3 seconds Rhythm is sinus rhythm. Respiratory: Airway is patent Trachea midline Respiratory effort is even, unlabored, Respiratory pattern is regular, symmetrical, Denies shortness of breath. GI: No signs and/or symptoms were reported involving the gastrointestinal system. : No signs and/or symptoms were reported regarding the genitourinary system. EENT: No signs and/or symptoms were reported regarding the EENT system. Derm: No signs and/or symptoms reported regarding the dermatologic system. Skin is intact, is healthy with good turgor, Skin is pink, warm \T\ dry. Musculoskeletal: No signs and/or symptoms reported regarding the musculoskeletal system. Circulation, motion, and sensation intact. Capillary refill < 3 seconds, Range of motion: intact in all extremities. 17:00 Reassessment: Patient appears in no apparent distress at this time. No changes from kc6 previously documented assessment. Patient and/or family updated on plan of care and expected duration. Pain level reassessed. Patient is alert, oriented x 3, equal unlabored respirations, skin warm/dry/pink. 17:55 Reassessment: Patient appears in no apparent distress at this time. No changes from kc6 previously documented assessment. Patient and/or family updated on plan of care and expected duration. Pain level reassessed. Patient is alert, oriented x 3, equal unlabored respirations, skin warm/dry/pink. Vital Signs: 13:55 BP 155 / 95; Pulse 99; Resp 18; Temp 97.9(TE); Pulse Ox 96% on R/A; Weight 127.01 kg; ld1 Height 5 ft. 11 in. ; Pain 8/10; 17:26 BP 130 / 86; Pulse 76; Resp 16 S; Pulse Ox 100% on R/A; kc6 19:58 BP 121 / 76; Pulse 71; ap3 13:55 Body Mass Index 39.05 (127.01 kg, 180.34 cm) ld1 13:55 Pain Scale: Adult ld1 ED Course: 13:42 Patient arrived in ED. mr 13:42 Ghanshyam Truong DO is Private Physician. mr 13:46 Johanne Lemos PA-C [facility]. sb4 13:46 Vance Mcnamara MD is Attending Physician. sb4 13:55 Triage completed. ld1 13:56 Arm band placed on right wrist. ld1 14:29 XRAY Chest (1 view) In Process Unspecified. EDMS 16:00 Inserted saline lock: 20 gauge in right forearm, using aseptic technique. Blood kc6 collected. Patient maintains SpO2 saturation greater than 95% on room air. 16:12 Lisa Caldwell, RN is Primary Nurse. kc6 17:23 Patient has correct armband on for positive identification. Bed in low position. Call kc6 light in reach. Side rails up X2. Adult w/ patient. Client placed on continuous cardiac and pulse oximetry monitoring. NIBP monitoring applied. professor of chemical engineering on. 18:38 CT Chest For PE Angio In Process Unspecified. EDMS 19:42 Ghanshyam Truong DO is Referral Physician. sb4 19:58 No provider procedures requiring assistance completed. IV discontinued, intact, ap3 bleeding controlled, No redness/swelling at site. Pressure dressing applied. 19:59 Provided Education on: discharge instructions. ap3 Administered Medications: 16:12 Drug: Aspirin PO 162 mg PO once Route: PO; kc6 17:23 Follow up: Response: No adverse reaction kc6 16:12 Drug: Nitroglycerin Sublingual 0.4 mg Sublingual once; every five minute if needed x3 kc6 Route: Sublingual; 20:00 Follow up: Response: No adverse reaction ap3 18:54 Drug: morphine IVP or IV 4 mg IVP once over 4 mins Route: IVP; Infused Over: 4 mins; kc6 Site: right forearm; 20:00 Follow up: Response: No adverse reaction; Pain is decreased; RASS: Alert and Calm (0) ap3 18:54 Drug: Ondansetron IVP 4 mg IVP once; over 2 minutes Route: IVP; Site: right forearm; kc6 19:59 Follow up: Response: No adverse reaction; Nausea is decreased ap3 Medication: 19:59 VIS not applicable for this client. ap3 Outcome: 19:43 Discharge ordered by . sb4 19:58 Discharged to home ambulatory, ap3 19:58 Condition: good 19:58 Condition: good 19:58 Discharge instructions given to patient, Instructed on discharge instructions, follow up and referral plans. Demonstrated understanding of instructions, follow-up care, 19:59 Patient left the ED. ap3 Signatures: Dispatcher [employer] EDWY LemonErna, Reg Reg mr Laine Morrison RN RN ap3 Xiomy Greene RN RN ld1 Lisa Caldwell RN RN richard6 Johanne Lemos PA-C PAAnne Marie sb4 Corrections: (The following items were deleted from the chart) 13:55 13:54 Allergies: Xarelto; ld1 ld1
[2023-07-01 01:03] VITALS: BP 121/76; TEMP 97.9; O2SAT 100
--- NOTE | 2023-07-01 17:51 | EKG ---
Test Date: 2023-06-30 Test Time: 16:09:03 Respiratory Therapist Assistant: LORNA MEASUREMENT RESULTS: Intervals: Rate: 76 SD: 158 QRSD: 106 QT: 380 QTc: 427 [place]: P: 12 SD: 158 QRS: 61 T: 46 INTERPRETIVE STATEMENTS: Normal sinus rhythm Normal ECG Compared to ECG 05/26/2006 09:26:02 No significant changes Electronically Signed On 07-01-23 17:48:45 COMMERCIAL LEASING AGENT by Mayank Cramer
== END ==
LOC: ER 13:38
DX: R07.9 Chest pain, unspecified (principal); I10 Essential (primary) hypertension; F32.A Depression, unspecified
CPT/HCPCS: 93005; 85025; 80048; 36415; 83735; 85610; 80076; 84484; 83880; 71275; 71045; 96375; 96374; 99285; Q9967; J2405

== ENCOUNTER 2025-03-07 14:22 | Emergency (ER) | payer BC ==
--- NOTE | 2025-03-07 15:33 | RAD REPORT ---
EXAMINATION: Stone Protocol CLINICAL INDICATION: Abdominal pain TECHNIQUE: CT abdomen and pelvis was performed, without IV contrast, as per department protocol. Oral contrast not given. Axial, sagittal and coronal reconstructions were obtained. One or more of the following dose reduction techniques were used: Automated exposure control, adjustment of the mA and k V according to the patient size, and iterative reconstruction. Unless otherwise specified, incidental findings do not require dedicated imaging follow-up. COMPARISON: 2022 FINDINGS: The lack of intravenous and oral contrast limits the sensitivity of this exam for evaluation of solid visceral organs, vascular structures, and bowel Punctate right renal calculi. No hydronephrosis. A ureteral calculus is not seen. No bladder calculus noted. No left renal calculus. 2.9 cm gallstone. Gallbladder wall does not appear thickened. Liver, spleen, pancreas and adrenals grossly normal No evidence of diverticulitis. Normal appendix. Small umbilical hernia. Left iliac venous stent in place. Small right inguinal hernia IMPRESSION: Punctate nonobstructing right renal calculi Cholelithiasis without evidence of cholecystitis
[2025-03-07] MEDS ORDERED: NA CHLORIDE 0.9% 1,000 ML ONE (15:37)
[2025-03-07] MEDS ORDERED: ONDANSETRON 4 MG/2 ML VIAL ONE (15:37)
[2025-03-07] MEDS ORDERED: KETOROLAC 30 MG/ML INJ ONE (15:37)
[2025-03-07 15:43] LABS: Absolute Lymphocytes (CBC) 2.8 K/uL (0.7-4.9); Hematocrit 44.1 % (39.6-49.0); Hemoglobin 15.2 g/dL (13.6-17.9); MCH 28.9 pg (27.0-35.0); MCHC 34.5 g/dL (32.0-36.0); MCV 83.8 fL (80-100); MPV 7.9 fL (7.6-11.3); Nucleated RBC Absolute Count 0.0 (0-0); Nucleated Red Blood Cells % 0.1 % (0-0); RBC Red Blood Cell Count 5.26 M/uL (4.33-5.43); White Blood Count 8.00 thou/uL (4.3-10.9)
[2025-03-07 16:02] LABS: ALT/SGPT 33.0 U/L (16-61); AST/SGOT 18.0 U/L (15-37); Albumin 3.6 g/dL (3.4-5.0); Albumin/Globulin Ratio 1.0 (1.1-1.8); Alkaline Phosphatase 86.0 U/L (45-117); Anion Gap 6.7 mEq/L (5.0-15.0); BUN Blood Urea Nitrogen 10.0 mg/dL (7-18); Globulin 3.5 g/dL (2.3-3.5); Glucose Level 89.0 mg/dL (74-106); Lipase 38.0 U/L (13-75); Potassium 3.7 mEq/L (3.5-5.1)
[2025-03-07 16:51] LABS: Urine Microscopic Reflex YN NO UMIC
--- NOTE | 2025-03-07 17:49 | ER ---
Nurse's Notes [facility] Name: Milton Reeves Age: 44 yrs Sex: Male : 1980 Arrival Date: 03/07/2025 Time: 14:22 Bed 18 Private MD: Diagnosis: Low back pain Presentation: 03/07 15:03 Chief complaint: Patient states: RT FLANK PAIN, N/V AND DARK URINE X 2 WEEKS, WORSE dd2 OVER THE WEEKEND. Coronavirus screen: At this time, the client does not indicate any symptoms associated with coronavirus-19. Ebola Screen: No symptoms or risks identified at this time. Initial Sepsis Screen: Does the patient meet any 2 criteria? No. Patient's initial sepsis screen is negative. Does the patient have a suspected source of infection? No. Patient's initial sepsis screen is negative. Risk Assessment: Do you want to hurt yourself or someone else? Patient reports no desire to harm self or others. Onset of symptoms was February 21, 2025. 15:03 Method Of Arrival: Ambulatory dd2 15:03 Acuity: HENRY 3 dd2 Triage Assessment: 15:06 General: Appears in no apparent distress. uncomfortable, Behavior is calm, cooperative, dd2 appropriate for age. Pain: Complains of pain in anterior aspect of right lateral abdomen and posterior aspect of right lateral abdomen. GI: Reports nausea, vomiting. : Reports burning with urination, pain in right flank(s), DARK URINE. Historical: - Allergies: 15:06 No Known Allergies; dd2 - PMHx: 15:06 depressive disorder; DVT; Hypertensive disorder; dd2 - PSHx: 15:06 knee; dd2 - Immunization history:: Adult Immunizations up to date. - Infectious Disease History:: Denies. - Social history:: Smoking status: Reported history of juuling and/or vaping. Screenin:30 [facility] ED Fall Risk Assessment (Adult) History of falling in the last 3 months, me1 including since admission No falls in past 3 months (0 pts) Confusion or Disorientation No (0 pts) Intoxicated or Sedated No (0 pts) Impaired Gait No (0 pts) Mobility Assist Device Used No (0 pt) Altered Elimination No (0 pt) Score/Fall Risk Level 0 - 2 = Low Risk Maintained a safe environment, Provided non-skid footwear, Hourly rounding (assess needs \T\ fall precautionary measures) done. Abuse screen: Denies threats or abuse. Nutritional screening: No deficits noted. Tuberculosis screening: No symptoms or risk factors identified. Assessment: 15:30 General: Appears uncomfortable, well groomed, well developed, well nourished, Behavior me1 is calm, cooperative, appropriate for age, Reports RT FLANK PAIN, N/V AND DARK URINE X 2 WEEKS, WORSE OVER THE WEEKEND. Pain: Complains of pain in posterior aspect of right lateral abdomen and anterior aspect of right lateral abdomen Pain does not radiate. Pain currently is 8 out of 10 on a pain scale. Quality of pain is described as sharp, shooting, Pain began a week ago Is continuous. Neuro: Level of Consciousness is awake, alert, obeys commands, Oriented to person, place, time, situation, Appropriate for age. Cardiovascular: Patient's skin is warm and dry. Respiratory: Airway is patent Respiratory effort is even, unlabored, Respiratory pattern is regular, symmetrical. GI: No signs and/or symptoms were reported involving the gastrointestinal system. Bowel sounds present X 4 quads. Abd is soft X 4 quads. : Reports pain in right flank(s), lower quadrant(s) since a week ago. EENT: No signs and/or symptoms were reported regarding the EENT system. Derm: Skin is intact, is healthy with good turgor, Skin is normal. Musculoskeletal: Circulation, motion, and sensation intact. Range of motion: intact in all extremities. Vital Signs: 15:03 BP 156 / 122; Pulse 75; Resp 16; Temp 98; Pulse Ox 99% on R/A; Weight 136.08 kg; Height dd2 5 ft. 11 in. ; Pain 8/10; 15:45 BP 149 / 101; Pulse 63; Resp 18; Temp 98.2; Pulse Ox 98% ; me1 16:00 BP 155 / 105; Pulse 78; Resp 17; Pulse Ox 98% ; me1 17:00 BP 157 / 107; Pulse 57; Resp 16; Pulse Ox 99% ; me1 15:03 Body Mass Index 41.84 (136.08 kg, 180.34 cm) dd2 15:03 Pain Scale: Adult dd2 ED Course: 14:24 Patient arrived in ED. im 14:34 Johanne Lemos PA-C is PHCP. sb4 14:34 Dariela Truong MD is Attending Physician. sb4 14:57 PHCP role handed off by Johanne Lemos PA-C kb 14:57 Shannon Villatoro FNP-C is PHCP. kb 15:06 Triage completed. dd2 15:06 Arm band placed on right wrist. dd2 15:17 CT Stone Protocol In Process Unspecified. EDMS 15:30 Patient has correct armband on for positive identification. Bed in low position. Call me1 light in reach. Side rails up X2. Provided Education on: POC. Verbalized understanding.. Client placed on continuous cardiac and pulse oximetry monitoring. NIBP monitoring applied. Pulse ox on. NIBP on. 15:30 No provider procedures requiring assistance completed. me1 15:33 Shilpa Navarrete, RN is Primary Nurse. me1 15:38 CBC with Diff Sent. bc6 15:38 CMP Sent. bc6 15:38 Lipase Sent. bc6 15:38 Initial lab(s) drawn, by nc, sent to lab. Inserted saline lock: 20 gauge in right bc6 antecubital area, using aseptic technique. Blood collected. Flushed with 10 mL NS. 17:48 Dariela Truong MD is Referral Physician. kb 17:48 Referral Physician role handed off by Dariela Truong MD kb 17:59 IV discontinued, intact, bleeding controlled, No redness/swelling at site. Pressure me1 dressing applied. Administered Medications: 15:44 Drug: NS 0.9% IV 1000 ml IV at 1 bolus Per protocol; to be given as a bolus over 60 ss minutes Route: IV; Rate: 1 bolus; Site: right antecubital; 17:12 Follow up: Response: No adverse reaction; IV Status: Completed infusion me1 15:50 Drug: Ondansetron IVP 4 mg IVP once; over 2 minutes Route: IVP; Site: right antecubital;ss 17:12 Follow up: Response: No adverse reaction; Nausea is decreased me1 15:54 Drug: TORadol - Ketorolac IVP 15 mg IVP once Route: IVP; Site: right antecubital; ss 17:12 Follow up: Response: No adverse reaction; Pain is decreased me1 Medication: 15:30 VIS not applicable for this client. me1 Outcome: 17:48 Discharge ordered by MD. low 17:59 Discharged to home ambulatory, with significant other, me1 17:59 Condition: stable 17:59 Discharge instructions given to patient, significant other, Instructed on discharge instructions, follow up and referral plans. medication usage, Demonstrated understanding of instructions, follow-up care, medications, Prescriptions given X 2, 17:59 Patient left the ED. me1 Signatures: Dispatcher [employer] EDMA Shannon Villatoro, SALES ENGINEER-C SALES ENGINEER-CkDianna Morrell, RN RN Johanne Garay, PA-C PA-C sb4 Louann Steel bc6 Kim Jacobson Michelle, RN RN me1 TYREL THOMAS RN RN dd2 Corrections: (The following items were deleted from the chart) 17:06 15:03 Chief complaint: Patient states: RT FLANK PAIN, N/V AND DARK URINE X 2 WEEKS, me1 WORSE OVER THE WEEKEND. dd2
--- NOTE | 2025-03-07 17:49 | EDPHYS ---
Physician Documentation [facility] Name: Milton Reeves Age: 44 yrs Sex: Male : 1980 Arrival Date: 03/07/2025 Time: 14:22 Bed 18 Private MD: ED Physician Dariela Truong HPI: 03/07 15:04 This 44 yrs old Male presents to ER via Unassigned with complaints of Abdominal Pain, kb Urinary Problem, Nausea/Vomiting, Low Back Pain. 15:04 Patient is a 44-year-old male who presents for right flank pain that started a couple kb of weeks ago and is gotten worse over the weekend. Reports nausea and vomiting. Reports dark urine. States he has felt hot but denies any fever.. Historical: - Allergies: 15:06 No Known Allergies; dd2 - PMHx: 15:06 depressive disorder; DVT; Hypertensive disorder; dd2 - PSHx: 15:06 knee; dd2 - Immunization history:: Adult Immunizations up to date. - Infectious Disease History:: Denies. - Social history:: Smoking status: Reported history of juuling and/or vaping. ROS: 15:01 Constitutional: As per HPI kb Exam: 15:01 Constitutional: This is a well developed, well nourished patient who is awake, alert, kb and in no acute distress. Head/Face: Normocephalic, atraumatic. ENT: Moist Mucous membranes Cardiovascular: Regular rate Respiratory: Respirations even and unlabored. No increased work of breathing. Talking in full sentences Abdomen/GI: Soft, non-tender. No distention Skin: Warm, dry with normal turgor. Normal color. MS/ Extremity: Pulses equal, no cyanosis. Neurovascular intact. Full, normal range of motion. Neuro: Awake and alert, GCS 15, oriented to person, place, time, and situation. 15:01 Back: CVA tenderness, that is moderate, is noted on the right, Vital Signs: 15:03 BP 156 / 122; Pulse 75; Resp 16; Temp 98; Pulse Ox 99% on R/A; Weight 136.08 kg; Height dd2 5 ft. 11 in. ; Pain 8/10; 15:45 BP 149 / 101; Pulse 63; Resp 18; Temp 98.2; Pulse Ox 98% ; me1 16:00 BP 155 / 105; Pulse 78; Resp 17; Pulse Ox 98% ; me1 17:00 BP 157 / 107; Pulse 57; Resp 16; Pulse Ox 99% ; me1 15:03 Body Mass Index 41.84 (136.08 kg, 180.34 cm) dd2 15:03 Pain Scale: Adult dd2 MDM: 14:35 Medical Screening Exam initiated sb4 16:31 ED course: Patient reports history of hypertension but stopped taking his medication 1 kb year ago because he did not like the side effects and his doctor would not change it.. 17:50 Differential diagnosis: non-specific abd pain, Ureterolithiasis, urinary tract kb infection, strain. sciatica. Data reviewed: vital signs, nurses notes. I considered the following discharge prescriptions or medication management in the emergency department I discussed and recommended Over The Counter medications, Antibiotics: At this time antibiotics are not recommended. Historians other than the Patient: Spouse/Significant Other: . Counseling: I had a detailed discussion with the patient and/or guardian regarding the historical points, exam findings, and any diagnostic results supporting the discharge/admit diagnosis, lab results, radiology results, the need for outpatient follow up, a family practitioner, to return to the emergency department if symptoms worsen or persist or if there are any questions or concerns that arise at home. 03/07 15:06 Order name: CBC with Diff; Complete Time: 16:03 kb 03/07 15:06 Order name: CMP; Complete Time: 16:03 kb 03/07 15:06 Order name: Lipase; Complete Time: 16:03 kb 03/07 15:06 Order name: UA Rfx Oswald Cult if indicated; Complete Time: 16:53 kb 03/07 15:06 Order name: CT Stone Protocol; Complete Time: 15:35 kb 03/07 15:06 Order name: IV Saline Lock; Complete Time: 15:38 kb 03/07 15:06 Order name: Labs collected and sent; Complete Time: 15:38 kb Administered Medications: 15:44 Drug: NS 0.9% IV 1000 ml IV at 1 bolus Per protocol; to be given as a bolus over 60 ss minutes Route: IV; Rate: 1 bolus; Site: right antecubital; 17:12 Follow up: Response: No adverse reaction; IV Status: Completed infusion id1 15:50 Drug: Ondansetron IVP 4 mg IVP once; over 2 minutes Route: IVP; Site: right antecubital;ss 17:12 Follow up: Response: No adverse reaction; Nausea is decreased me1 15:54 Drug: TORadol - Ketorolac IVP 15 mg IVP once Route: IVP; Site: right antecubital; ss 17:12 Follow up: Response: No adverse reaction; Pain is decreased me1 Disposition Summary: 03/07/25 17:48 Discharge Ordered Notes: Location: Home kb Condition: Stable kb Diagnosis - Low back pain kb Followup: kb - With: Emergency Department - When: As needed - Reason: Worsening of condition Followup: kb - With: Private Physician - When: 2 - 3 days - Reason: Recheck today's complaints, Continuance of care, Re-evaluation by your physician Discharge Instructions: - Discharge Summary Sheet kb - Acute Back Pain, Adult kb Forms: - Medication Reconciliation Form kb - Antibiotic Education kb - Prescription Opioid Use kb - Patient Portal Instructions kb - Leadership Thank You Letter kb Prescriptions: - Cyclobenzaprine 10 mg Oral Tablet - take 1 tablet ORAL route every 8 hours As needed; 30 tablet; Refills: 0, kb Product Selection Permitted - Diclofenac Sodium 75 mg Oral tablet, delayed release (enteric coated) - take 1 tablet ORAL route 2 times per day As needed; 30 tablet; Refills: 0, kb Product Selection Permitted Signatures: Dispatcher [employer] EDShannon Beckford, PROOFSHEET CORRECTOR-C PROOFSHEET CORRECTOR-Dianna Degroot RN RN ss Johanne Lemos PA-C PAAnne Marie sb4 Shilpa Navarrete RN RN me1 TYREL THOMAS RN RN dd2 Corrections: (The following items were deleted from the chart) 15:06 15:06 CBC+H.LAB.BRZ ordered. EDMS EDMS 15:06 15:06 COMPREHENSIVE METABOLIC PANEL+C.LAB.BRZ ordered. EDMS EDMS 15:06 15:06 LIPASE+C.LAB.BRZ ordered. EDMS EDMS 15:06 15:06 UA Rfx Oswald Cult if indicated+U.LAB.BRZ ordered. EDMS EDMS 15:07 15:06 Stone Protocol+CT.RAD.BRZ ordered. EDMS EDMS
[2025-03-07 18:42] VITALS: TEMP 98.2
[2025-03-07 18:45] VITALS: BP 157/107; O2SAT 99
== END 2025-03-07 17:59 | disposition home or self-care (01) ==
LOC: ER 14:22
DX: M54.50 Low back pain, unspecified (principal)
CPT/HCPCS: 96361; 85025; 36415; 81003; 83690; 80053; 76377; 74176; 96375; 96374; 99284; J2405; J7030; J1885